=== PATIENT | female | born 1970 | race Caucasian/White ===

== ENCOUNTER → 2017-03-28 | Outpatient (CLI) | payer OTHER ==
[~2017-03-28] MED LIST: CYAN10002 IM; DICL1GEL12 TOP; DULOXETINE PO; FLUV100T12 PO; HYDR100C PO; Iron PO; LEVO150T9 PO; LISI-461 PO; LYR50 PO; Levothyroxine PO; ONDA-63 PO; PANT40TA2 PO; PREG200C PO; SNQ/50 PO; TOPI100T34 PO; VTMD PO; metronidazole PO
[2017-03-28 12:20] LABS: BASO % 1.6 %; BASO ABS # 0.08 K/uL (0-0.2); COMPLETE YES; EOS % 0.8 %; HEMATOCRIT 35.1 % (37-47); IG% 0.2 %; LYMPH % 38.4 %; LYMPH ABS # 1.91 K/uL (1.2-3.4); MEAN CORPUSCULAR HEMOGLOBIN 22.9 pg (25-34); MEAN CORPUSCULAR HGB CONC 30.5 g/dl (32-36); MEAN PLATELET VOLUME 8.3 fL (7.4-10.4); MONO % 7.2 %; NEUT % 51.8 %; PLATELET COUNT 355 K/uL (130-400); RED BLOOD COUNT 4.68 M/uL (4.2-5.4); WHITE BLOOD COUNT 4.97 K/uL (4.8-10.8)
[2017-03-28 13:12] LABS: ESTIMATED AVERAGE GLUCOSE 134 mg/dl; HA1C FLAG Normal (Normal)
[2017-03-28 13:31] LABS: ALT/SGPT 29 U/L (12-78); AST/SGOT 16 U/L (15-37); BLOOD UREA NITROGEN 11 mg/dl (7-18); BUN/CREATININE RATIO 15.8 (10-20); CARBON DIOXIDE 31 mmol/L (21-32); CHLORIDE 106 mmol/L (98-107); CHOLESTEROL 159 mg/dl (0-200); CREATININE 0.71 mg/dl (0.60-1.20); GLUCOSE 93 mg/dl (70-99); POTASSIUM 4.1 mmol/L (3.5-5.1); SODIUM 143 mmol/L (136-145); TRIGLYCERIDES 71 mg/dl (0-150); VERY LOW DENSITY LIPOPROT CALC 14 mg/dl
[2017-03-28 13:38] LABS: CALCIUM 8.3 mg/dl (8.5-10.1)
[2017-03-28 13:41] LABS: ALB/GLOB RATIO 0.8 (0.9-2); ALKALINE PHOSPHATASE 103 U/L (45-117); FERRITIN 3.9 ng/ml (8.0-388.0); HDL CHOLESTEROL 80 mg/dl; LDL CHOLESTEROL CALCULATED 65 mg/dl
== END | disposition home or self-care (01) ==
LOC: C.LABPVFM 09:56
PROVIDERS: ATTEND Nurse Practitioner Family
DX: E03.9 Hypothyroidism, unspecified (principal); D50.9 Iron deficiency anemia, unspecified; E53.8 Deficiency of other specified B group vitamins; E55.9 Vitamin D deficiency, unspecified; I10 Essential (primary) hypertension; R73.09 Other abnormal glucose

== ENCOUNTER → 2017-05-09 | Outpatient (CLI) | payer OTHER ==
[~2017-05-09] MED LIST changes: -FLUV100T12 PO; -HYDR100C PO; -LEVO150T9 PO; -LISI-461 PO; -PANT40TA2 PO; -PREG200C PO; +PRT/40 PO; -SNQ/50 PO
[2017-05-09 12:48] LABS: BASO % 1.7 %; BASO ABS # 0.09 K/uL (0-0.2); COMPLETE YES; EOS % 0.7 %; HEMATOCRIT 38.3 % (37-47); IG% 0.4 %; LYMPH % 37.4 %; MEAN CELL VOLUME 75.1 fL (80-100); MEAN CORPUSCULAR HEMOGLOBIN 23.1 pg (25-34); MEAN CORPUSCULAR HGB CONC 30.8 g/dl (32-36); MEAN PLATELET VOLUME 8.7 fL (7.4-10.4); MONO % 8.6 %; NEUT % 51.2 %; PLATELET COUNT 379 K/uL (130-400); WHITE BLOOD COUNT 5.35 K/uL (4.8-10.8)
== END | disposition home or self-care (01) ==
LOC: C.LABPVFM 09:52
PROVIDERS: ATTEND Nurse Practitioner
DX: D64.9 Anemia, unspecified (principal)

== ENCOUNTER 2017-08-17 14:49 | Emergency (ER) | payer OTHER ==
[~2017-08-17] VITALS: Ht 157.5 cm; Wt 93.0 kg
[2017-08-17 15:04] VITALS: TEMP 36.5; O2SAT 95; Ht 157.5 cm; Wt 93.0 kg
[2017-08-17] MEDS ORDERED: SODIUM CHLORIDE 0.9% 1000ML 2,000 ML IV STA (15:08)
[2017-08-17] MEDS ORDERED: ONDANSETRON INJ 2 MG/ML 2 ML VIAL IV STA (15:08)
--- NOTE | 2017-08-17 15:16 | EMERGENCY ROOM VISIT NOTE ---
History Report prepared by [place]: Yuval Stephens Under the Supervision of: Dr. Jay Lechuga M.D. First contact with patient: 15:01 Chief Complaint: SYNCOPE (NEAR SYNCOPE) History of Present Illness The patient is a 47 year old female who presents to the Emergency Room with complaints of a near syncopal episode that occurred about an hour and a half ago. Per the patient's daughter, earlier this afternoon they were getting ice cream. The patient was at her baseline as they sat in the [place]. A couple minutes later, the patient began to shake and was having difficulty responding to her family. Her daughter also says that her eyes were rolling upwards and she would fall forward intermittently. The patient does not remember this happening. After she mildly improved, she was able to eat some of her ice cream and notes that she felt somewhat better. She denies any chest pain, shortness of breath, hematochezia, or abnormal urinary symptoms. She has been having diarrhea for the past couple of days as well as a dry mouth. She denies any abnormal food exposure. Source of History: patient Onset: an hour and a half ago Position: other (Global) Symptom Intensity: Near-syncope Quality: other (Near-syncope) Timing: resolved Associated Symptoms: + diarrhea, No chest pain, No SOB, No hematochezia, No urinary symptoms Review of Systems See HPI for pertinent positives & negatives. A total of 10 systems reviewed and were otherwise negative. 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 (11) Lumbago (12) Lumbar Disc Displacement (13) Lumbosacral Neuritis Nos (14) Migraine W/O Aura W/O Intract Mgrn W/O Status Migrainosus (15) Obesity, Nos (16) Polycystic Ovaries Surgical Problems: (1) Bariatric Surgery Status Family History Diabetes mellitus Social History Smoking Status: Former Smoker Smokeless Tobacco Use: No Drug Use: none Marital Status: Housing Status: lives with family Occupation Status: employed Current/Historical Medications Scheduled Doxepin Hcl (Sinequan), 50 MG PO HS Fluvoxamine Maleate (Luvox), 100 MG PO QAM Fluvoxamine Maleate (Luvox), 200 MG PO HS Levothyroxine Sodium (Levothyroxine Sodium), 150 MCG PO QAM Lisinopril (Lisinopril), 10 MG PO QAM Pregabalin (Lyrica), 200 MG PO BID Scheduled PRN Hydroxyzine Pamoate (Vistaril), 100 MG PO QID PRN for Anxiety Allergies Coded Allergies: Penicillins (Verified Allergy, Intermediate, HIVES/SEIZURES, 02/03/15) Sulfa Drugs (Verified Allergy, Intermediate, HIVES/SEIZURES, 02/03/15) Latex (Unverified Allergy, Mild, rash, 02/03/15) Physical Exam Vital Signs Date Time Temp Pulse Resp B/P (MAP) Pulse Ox O2 Delivery O2 Flow Rate FiO2 08/17/17 17:45 82 18 130/99 96 Room Air 08/17/17 17:00 86 18 147/89 98 Room Air 08/17/17 16:09 91 18 134/85 95 Room Air 08/17/17 15:35 91 144/99 100 140/114 96 152/96 08/17/17 15:09 99 08/17/17 15:04 36.5 105 18 149/89 95 Room Air 08/17/17 15:04 95 Room Air Physical Exam GENERAL: Patient is in no acute distress. HEENT: No acute trauma, normocephalic atraumatic, mucous membranes dry, no nasal congestion, no scleral icterus. NECK: No stridor, no adenopathy, no meningismus, trachea is midline. LUNGS: Clear to auscultation bilaterally, no wheeze, no rhonchi, breath sounds equal. HEART: Without murmurs gallops or rubs, regular rate and rhythm. ABDOMEN: Soft, nontender, bowel sounds positive, no hernias, no peritonitis. EXTREMITIES: No cyanosis or edema, full range of motion of all the joints without pain or difficulty, no signs for acute trauma. NEUROLOGIC: Oriented x 3, no acute motor or sensory deficits, no focal weakness. SKIN: No rash, no jaundice, no diaphoresis. Medical Decision & Procedures ER Provider Diagnostic Interpretation: Radiology results as stated below per my review and radiologist interpretation: SINGLE VIEW CHEST CLINICAL HISTORY: Weakness. Change in mental status. FINDINGS: An AP, portable, semierect chest radiograph is compared to study dated 06/05/2013. The examination is degraded by portable technique and patient rotation. The cardiomediastinal silhouette is unremarkable. The lungs and pleural spaces are clear. No pneumothorax is seen. The bony thorax is grossly intact. IMPRESSION: No active disease in the chest. Electronically signed by: Jay Díaz M.D. 08/17/2017 3:43 PM Dictated Date/Time: 08/17/2017 3:42 PM Laboratory Results 08/17/17 15:10 Red Blood Count 5.13, Mean Corpuscular Volume 72.7, Mean Corpuscular Hemoglobin 23.2, Mean Corpuscular Hemoglobin Concent 31.9, Mean Platelet Volume 8.2, Neutrophils (%) (Auto) 68.6, Lymphocytes (%) (Auto) 22.2, Monocytes (%) (Auto) 7.6, Eosinophils (%) (Auto) 0.6, Basophils (%) (Auto) 0.8, Neutrophils # (Auto) 4.22, Lymphocytes # (Auto) 1.37, Monocytes # (Auto) 0.47, Eosinophils # (Auto) 0.04, Basophils # (Auto) 0.05 08/17/17 15:10 Test 08/17/17 15:10 08/17/17 16:20 08/17/17 17:32 White Blood Count 6.16 K/uL (4.8-10.8) Red Blood Count 5.13 M/uL (4.2-5.4) Hemoglobin 11.9 g/dL (12.0-16.0) Hematocrit 37.3 % (37-47) Mean Corpuscular Volume 72.7 fL (80-100) Mean Corpuscular Hemoglobin 23.2 pg (25-34) Mean Corpuscular Hemoglobin Concent 31.9 g/dl (32-36) Platelet Count 344 K/uL (130-400) Mean Platelet Volume 8.2 fL (7.4-10.4) Neutrophils (%) (Auto) 68.6 % Lymphocytes (%) (Auto) 22.2 % Monocytes (%) (Auto) 7.6 % Eosinophils (%) (Auto) 0.6 % Basophils (%) (Auto) 0.8 % Neutrophils # (Auto) 4.22 K/uL (1.4-6.5) Lymphocytes # (Auto) 1.37 K/uL (1.2-3.4) Monocytes # (Auto) 0.47 K/uL (0.11-0.59) Eosinophils # (Auto) 0.04 K/uL (0-0.5) Basophils # (Auto) 0.05 K/uL (0-0.2) RDW Standard Deviation 42.9 fL (36.4-46.3) RDW Coefficient of Variation 16.2 % (11.5-14.5) Immature Granulocyte % (Auto) 0.2 % Immature Granulocyte # (Auto) 0.01 K/uL (0.00-0.02) Anion Gap 7.0 mmol/L (3-11) Est Creatinine Clear Calc Drug Dose 89.9 ml/min Estimated GFR () 98.0 Estimated GFR (Non- 84.6 BUN/Creatinine Ratio 19.1 (10-20) Calcium Level 8.6 mg/dl (8.5-10.1) Magnesium Level 2.1 mg/dl (1.8-2.4) Total Bilirubin 0.3 mg/dl (0.2-1) Aspartate Amino Transf (AST/SGOT) 22 U/L (15-37) Alanine Aminotransferase (ALT/SGPT) 42 U/L (12-78) Alkaline Phosphatase 121 U/L (45-117) Total Protein 7.9 gm/dl (6.4-8.2) Albumin 3.8 gm/dl (3.4-5.0) Globulin 4.1 gm/dl (2.5-4.0) Albumin/Globulin Ratio 0.9 (0.9-2) Thyroid Stimulating Hormone (TSH) 10.100 uIu/ml (0.300-4.500) Free Thyroxine 0.88 ng/dl (0.80-1.60) Urine Color YELLOW Urine Appearance CLEAR (CLEAR) Urine pH 5.0 (4.5-7.5) Urine Specific Crowley 1.014 (1.000-1.030) Urine Protein NEG (NEG) Urine Glucose (UA) NEG (NEG) Urine Ketones NEG (NEG) Urine Occult Blood NEG (NEG) Urine Nitrite NEG (NEG) Urine Bilirubin NEG (NEG) Urine Urobilinogen NEG (NEG) Urine Leukocyte Esterase NEG (NEG) Bedside Troponin I < 0.030 ng/ml (0-0.045) Laboratory results reviewed by me. Medications Administered Medications (Trade) Dose Ordered Sig/Darby Route Start Time Stop Time Status Last Admin Dose Admin Sodium Chloride 2,000 ml @ 999 mls/hr Q2H1M STAT IV 08/17/17 15:08 08/17/17 17:08 DC 08/17/17 15:29 999 MLS/HR Ondansetron HCl (Zofran Inj) 4 mg NOW STAT IV 08/17/17 15:08 08/17/17 15:10 DC 08/17/17 15:29 4 MG ECG Indication: syncope (near) Rate (beats per minute): 98 Rhythm: normal sinus Findings: nonspecific-ST abn, ST depression (Lateral), other (LVH present) Comparison ECG Date: 05 Jun 2013 Change: ST and T wave abnormalities are new compared to prior. ED Course 1501: The patient was evaluated in room B3. A complete history and physical exam was performed. 1508: Ordered Zofran Inj 4 mg IV, Sodium Chloride 2000 ml @ 999 mls/hr IV 1640: The patient's orthostatic vital signs were negative. 1659: Her POC troponin was 0.00. 1722: She is doing well. Her second POC troponin was 0.01. 1956: Reevaluated the patient. Discussed results and discharge instructions: She verbalized understanding and agreement. The patient is ready for discharge. Medical Decision Differential diagnosis includes but is not limited to dehydration, electrolyte imbalance, anemia, UTI, dysrhythmia, and [place]. There is no leukocytosis or concerning anemia. No significant electrolyte abnormality, kidney failure or hepatitis. Thyroid testing suggests the use of thyroid medications. Urinalysis does not show infection. Orthostatic vital signs were negative. EKG shows a sinus rhythm with some ST changes consistent most likely with LVH. Cardiac enzyme testing 2 is not suggestive of acute cardiac injury. Chest film does not show pneumonia or CHF. Patient presents with a near syncopal event. She has not felt well for a few days and has had diarrhea and a decreased appetite. She feels thirsty. I suspect that she was dehydrated and that this led to the near syncopal event. She denies any chest pain or dyspnea with the episode. The patient was given IV Zofran and IV saline, she feels improved and is anxious for discharge. She can return if worsening. Medication Reconcilliation Current Medication List: was personally reviewed by me Blood Pressure Screening Patient's blood pressure: Elevated blood pressure Blood pressure disposition: Elevated BP felt to be situational Impression Primary Impression: Near syncope Additional Impressions: Dehydration Diarrhea Scribe Attestation The scribe's documentation has been prepared under my direction and personally reviewed by me in its entirety. I confirm that the note above accurately reflects all work, treatment, procedures, and medical decision making performed by me. Departure Information Dispostion Home / Self-Care Referrals Chanelle Gerard C.R.N.P (PCP) Forms HOME CARE DOCUMENTATION FORM, IMPORTANT VISIT INFORMATION Patient Instructions My [facility] Additional Instructions bland diet--crackers, soup, toast, gatorade rest return for worsening symptoms follow with [facility] saturday for a recheck lab testing today was all ok Problem Qualifiers Additional Impressions: Diarrhea Diarrhea type: unspecified type Qualified Codes: R19.7 - Diarrhea, unspecified
[2017-08-17 15:32] LABS: BASO % 0.8 %; BASO ABS # 0.05 K/uL (0-0.2); COMPLETE YES; EOS % 0.6 %; HEMATOCRIT 37.3 % (37-47); IG% 0.2 %; LYMPH % 22.2 %; LYMPH ABS # 1.37 K/uL (1.2-3.4); MEAN CELL VOLUME 72.7 fL (80-100); MEAN CORPUSCULAR HEMOGLOBIN 23.2 pg (25-34); MEAN CORPUSCULAR HGB CONC 31.9 g/dl (32-36); MEAN PLATELET VOLUME 8.2 fL (7.4-10.4); MONO % 7.6 %; NEUT % 68.6 %; PLATELET COUNT 344 K/uL (130-400); RED BLOOD COUNT 5.13 M/uL (4.2-5.4); WHITE BLOOD COUNT 6.16 K/uL (4.8-10.8)
--- NOTE | 2017-08-17 15:44 | DIAGNOSTIC IMAGING REPORT ---
SINGLE VIEW CHEST CLINICAL HISTORY: Weakness. Change in mental status. FINDINGS: An AP, portable, semierect chest radiograph is compared to study dated 06/05/2013. The examination is degraded by portable technique and patient rotation. The cardiomediastinal silhouette is unremarkable. The lungs and pleural spaces are clear. No pneumothorax is seen. The bony thorax is grossly intact. IMPRESSION: No active disease in the chest. Electronically signed by: Jay Díaz M.D. 08/17/2017 3:43 PM Dictated Date/Time: 08/17/2017 3:42 PM
[2017-08-17 15:50] LABS: BUN/CREATININE RATIO 19.1 (10-20); CALCIUM 8.6 mg/dl (8.5-10.1); CREATININE 0.83 mg/dl (0.60-1.20); MAGNESIUM 2.1 mg/dl (1.8-2.4); POTASSIUM 3.3 mmol/L (3.5-5.1)
[2017-08-17 16:01] LABS: ALB/GLOB RATIO 0.9 (0.9-2); THYROID STIMULATING HORMONE 10.1 uIu/ml (0.300-4.500)
[2017-08-17] MEDS ORDERED: LEVO150T9 PO (16:12)
[2017-08-17] MEDS ORDERED: LISI-461 PO (16:12)
[2017-08-17] MEDS ORDERED: FLUV100T12 PO ×2 (16:12)
[2017-08-17] MEDS ORDERED: PREG200C PO (16:12)
[2017-08-17] MEDS ORDERED: HYDR100C PO (16:12)
[2017-08-17] MEDS ORDERED: SNQ/50 PO (16:12)
[2017-08-17 16:51] LABS: URINE APPEARANCE CLEAR (CLEAR); URINE BILIRUBIN NEG (NEG); URINE COLOR YELLOW; URINE NITRITE NEG (NEG); URINE SPECIFIC GRAVITY 1.014 (1.000-1.030); UROBILINOGEN NEG (NEG); ZZUR CULT IF INDIC CLEAN CATCH NO
[2017-08-17 17:22] LABS: MANUAL MICROSCOPIC REQUIRED? NO; REVIEW REQ? NO
[2017-08-17 17:45] VITALS: BP 130/99; PULSE 82; O2SAT 96
== END 2017-08-17 18:01 | disposition home or self-care (01) ==
LOC: EDBD 14:49 → C.EDB 14:50
DX: R55 Syncope and collapse (principal); E86.0 Dehydration; R19.7 Diarrhea, unspecified; F41.9 Anxiety disorder, unspecified; E03.9 Hypothyroidism, unspecified; I10 Essential (primary) hypertension; K21.9 Gastro-esophageal reflux disease without esophagitis; J45.909 Unspecified asthma, uncomplicated; Z79.899 Other long term (current) drug therapy; Z87.898 Personal history of other specified conditions; Z87.891 Personal history of nicotine dependence; Z83.3 Family history of diabetes mellitus

== ENCOUNTER 2018-02-08 18:30 | Inpatient (IN) | payer OTHER ==
[~2018-02-08] VITALS: Ht 157.5 cm; Wt 95.0 kg
[~2018-02-08 18:30] MED LIST changes: -CYAN10002 IM; -DICL1GEL12 TOP; -DULOXETINE PO; +FLUV100T12 PO; +HYDR100C PO; -Iron PO; +LEVO150T9 PO; +LISI-461 PO; -LYR50 PO; -Levothyroxine PO; -ONDA-63 PO; +PREG200C PO; -PRT/40 PO; +SNQ/50 PO; -TOPI100T34 PO; -VTMD PO; -metronidazole PO
[2018-02-08 19:05] LABS: BASO % 0.3 %; BASO ABS # 0.02 K/uL (0-0.2); EOS % 0.8 %; EOS ABS # 0.06 K/uL (0-0.5); HEMATOCRIT 34.2 % (37-47); HEMOGLOBIN 10.5 g/dL (12.0-16.0); IG# 0.05 K/uL (0.00-0.02); LYMPH % 13.2 %; LYMPH ABS # 0.94 K/uL (1.2-3.4); MEAN CELL VOLUME 68.1 fL (80-100); MEAN CORPUSCULAR HEMOGLOBIN 20.9 pg (25-34); MEAN CORPUSCULAR HGB CONC 30.7 g/dl (32-36); MEAN PLATELET VOLUME 8.1 fL (7.4-10.4); MONO % 4.6 %; MONO ABS # 0.33 K/uL (0.11-0.59); NEUT % 80.4 %; NEUT ABS # 5.73 K/uL (1.4-6.5); PLATELET COUNT 369 K/uL (130-400); RED CELL DISTRIBUTION WIDTH CV 19.4 % (11.5-14.5); RED CELL DISTRIBUTION WIDTH SD 47.7 fL (36.4-46.3); WHITE BLOOD COUNT 7.13 K/uL (4.8-10.8)
[2018-02-08] MEDS ORDERED: DOXE100C4 PO (19:12)
[2018-02-08] MEDS ORDERED: DIPH25CA65 PO (19:12)
[2018-02-08 19:20] LABS: PTT PATIENT 30.1 SECONDS (21.0-31.0)
[2018-02-08 19:27] LABS: ALBUMIN 2.5 gm/dl (3.4-5.0); ALT/SGPT 26 U/L (12-78); AST/SGOT 11 U/L (15-37); BLOOD UREA NITROGEN 15 mg/dl (7-18); CALCIUM 8.6 mg/dl (8.5-10.1); CARBON DIOXIDE 23 mmol/L (21-32); CREATININE 0.92 mg/dl (0.60-1.20); GLUCOSE 173 mg/dl (70-99); POTASSIUM 2.8 mmol/L (3.5-5.1); SODIUM 139 mmol/L (136-145)
[2018-02-08] MEDS ORDERED: SODIUM CHLORIDE 0.9% 1000ML 1,000 ML IV STA (19:28)
[2018-02-08] MEDS ORDERED: OPTIRAY 320 IV PRN (19:30)
[2018-02-08 19:32] LABS: ALKALINE PHOSPHATASE 158 U/L (45-117); TOTAL PROTEIN 7.1 gm/dl (6.4-8.2)
--- NOTE | 2018-02-08 19:58 | DIAGNOSTIC IMAGING REPORT ---
R RIBS UNILATERAL WITH PA CHEST CLINICAL HISTORY: Right-sided rib pain. COMPARISON STUDY: Chest 08/17/2017. FINDINGS: There are low lung volumes. Linear densities the left lung base. Possible trace left pleural effusion. The right lung is clear. The heart is normal in size. No acute rib fractures. No pneumothorax. IMPRESSION: 1. No acute rib fractures. No pneumothorax. 2. Trace left pleural effusion. 3. Left basilar linear densities. This favors subsegmental atelectasis. However, a pneumonia could also have a similar appearance. One to 2 month chest x-ray follow up is recommended to ensure resolution. Electronically signed by: Frankie Banda M.D. 02/08/2018 7:57 PM Dictated Date/Time: 02/08/2018 7:55 PM
[2018-02-08] MEDS ORDERED: POTASSIUM CHLORIDE 10 MEQ TABCR PO STA (20:22)
[2018-02-08] MEDS ORDERED: ONDANSETRON INJ 2 MG/ML 2 ML VIAL IV STA (20:32)
--- NOTE | 2018-02-08 21:12 | DIAGNOSTIC IMAGING REPORT ---
ABDOMEN AND PELVIS CT WITH IV CONTRAST CT DOSE: 1268.68 mGy.cm HISTORY: Generalized abdominal pain. TECHNIQUE: Multiaxial CT images of the abdomen and pelvis were performed following the use of intravenous contrast. A dose lowering technique was utilized adhering to the principles of ALARA. COMPARISON STUDY: None. FINDINGS: Patchy bibasilar densities. Trace bilateral pleural effusions. No pneumoperitoneum. No pneumatosis. No acute fractures within the visualized osseous structures. Prior gastric bypass. Moderate well-formed stool seen throughout the colon. No bowel wall thickening or obstruction. Normal appendix. A 2 cm cyst within the left ovary. There is also a nabothian cyst at the cervix. Prior gastric bypass. Normal bladder. No retroperitoneal lymphadenopathy. The kidneys, spleen, adrenal glands, and pancreas are unremarkable. The gallbladder is distended and demonstrates mild gallbladder wall thickening. There is surrounding pericholecystic inflammatory change. There is also a few ill-defined pockets of fluid abutting the undersurface of the left hepatic lobe which could be partially subcapsular. These are adjacent to the gallbladder. The largest fluid collection measures 3.6 cm. Small peripheral enhancing low-density collection which appears to be adjacent to or within the wall of the distal aspect of the excluded portion of the stomach. This is best seen on image 124. IMPRESSION: 1. The gallbladder is distended and demonstrates mild gallbladder wall thickening. There is surrounding pericholecystic inflammatory change. Therefore, this is highly suspicious for acute cholecystitis. 2. There are few adjacent small ill-defined fluid collections along the undersurface of the left hepatic lobe adjacent to the abnormal gallbladder. These are nonspecific and could be related to the adjacent inflammatory change of the gallbladder. Therefore, these could represent small developing abscesses or bilomas. There is also a peripheral enhancing low-density collection which appears to be adjacent to or within the wall the distal aspect of the excluded portion of the stomach. This could represent an additional developing abscess. However, a separate gastric mass cannot be excluded. Follow-up CT or endoscopy is recommended to ensure resolution. 3. Patchy bibasilar densities and trace bilateral pleural effusions. This may represent atelectasis or pneumonia. 4. Prior gastric bypass. Electronically signed by: Frankie Banda M.D. 02/08/2018 9:10 PM Dictated Date/Time: 02/08/2018 9:00 PM
--- NOTE | 2018-02-08 22:14 | EMERGENCY ROOM VISIT NOTE ---
History Report prepared by Scribe: Dorothy Jimenez Under the Supervision of: Dr. Castillo Velázquez D.O. First contact with patient: 18:36 Chief Complaint: FALL Stated Complaint: FELL TWICE, HIT HEAD, NAUSEA, RT SIDE PAIN, POLANCO History of Present Illness The patient is a 48 year old female who presents to the Emergency Room with complaints of worsening back pain for the past 3 days. She admits to a history of spinal stenosis and rates her discomfort as an 8/10 in severity. She reports she has also fallen twice in the past 3 days, stating "my legs get weak and fall out from under me". During the 2nd fall 3 days ago, she states she hit her head on the floor. She complains of a history of back pain and spinal stenosis and states she has undergone 1 back surgery previously and is supposed to undergo another one in the future. The patient reports she is only able to walk bent over because of her back pain. She denies any saddle anesthesia or changes in her bowel or bladder habits. She complains of tenderness over her right, lower chest wall. She also complains of nausea and abdominal pain. Pt denies headache, change in vision, fevers, chest pain, shortness of breath, vomiting, diarrhea, pain with urination, and melena. Source of History: patient Onset: 3 days [employer] Position: back Symptom Intensity: 8/10 Timing: worsening Associated Symptoms: + nausea, + abdominal pain, + weakness (in bilateral legs), No headache, No chest pain, No SOB, No vomiting, No melena, No diarrhea, No urinary symptoms Review of Systems See HPI for pertinent positives & negatives. A total of 10 systems reviewed and were otherwise negative. 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 (12) Lumbago (13) Lumbar Disc Displacement (14) Lumbosacral Neuritis Nos (15) Migraine W/O Aura W/O Intract Mgrn W/O Status Migrainosus (16) Obesity, Nos (17) Polycystic Ovaries Surgical Problems: (1) Bariatric Surgery Status Family History Diabetes mellitus Social History Smoking Status: Never Smoker Drug Use: none Marital Status: Housing Status: lives with family Occupation Status: employed Current/Historical Medications Scheduled Diphenhydramine Hcl (Benadryl Allergy), 25 MG PO BID Doxepin Hcl (Doxepin), 100 MG PO HS Fluvoxamine Maleate (Luvox), 100 MG PO QAM Fluvoxamine Maleate (Luvox), 200 MG PO HS Levothyroxine Sodium (Levothyroxine Sodium), 150 MCG PO QAM Pregabalin (Lyrica), 200 MG PO TID Scheduled PRN Hydroxyzine Pamoate (Vistaril), 100 MG PO QID PRN for Anxiety Allergies Coded Allergies: Penicillins (Verified Allergy, Intermediate, HIVES/SEIZURES, 02/03/15) Sulfa Drugs (Verified Allergy, Intermediate, HIVES/SEIZURES, 02/03/15) Latex (Verified Allergy, Mild, rash, 02/08/18) Physical Exam Vital Signs Date Time Temp Pulse Resp B/P (MAP) Pulse Ox O2 Delivery O2 Flow Rate FiO2 02/08/18 21:30 94 20 152/105 95 Room Air 02/08/18 21:20 91 20 161/97 95 Room Air 02/08/18 19:45 96 20 142/71 95 Room Air 02/08/18 18:32 36.7 109 20 123/81 97 Room Air Physical Exam GENERAL: Sitting up in bed, alert, disheveled appearing, well nourished, no distress, non-toxic EYE EXAM: normal conjunctiva. OROPHARYNX: no exudate, no erythema, lips, buccal mucosa, and tongue normal and mucous membranes are moist NECK: supple, no nuchal rigidity, no adenopathy, non-tender LUNGS: Clear to auscultation. Normal chest wall mechanics HEART: no murmurs, S1 normal and S2 normal CHEST: Acute reproducible tenderness over right lower chest wall. ABDOMEN: abdomen soft, severe diffuse abdominal pain on the right side/RUQ, normo-active bowel sounds, no masses, no rebound or guarding. BACK: Back is symmetrical on inspection and there is no deformity, no midline tenderness, no CVA tenderness. SKIN: no rashes and no bruising UPPER EXTREMITIES: upper extremities are grossly normal. LOWER EXTREMITIES: No pitting edema. Flexion and extension of the hip, knee, ankle and EHL is 5/5 bilaterally, patient is able to ambulate hunched over without difficulty. Patellar and Achilles reflexes are 1/4 bilaterally. NEURO EXAM: Normal sensorium, cranial nerves II-XII grossly intact, normal speech, no gross weakness of arms. Medical Decision & Procedures ER Provider Diagnostic Interpretation: Radiology results as stated below per my review and the radiologist's interpretation: R RIBS UNILATERAL WITH PA CHEST CLINICAL HISTORY: Right-sided rib pain. COMPARISON STUDY: Chest 08/17/2017. FINDINGS: There are low lung volumes. Linear densities the left lung base. Possible trace left pleural effusion. The right lung is clear. The heart is normal in size. No acute rib fractures. No pneumothorax. IMPRESSION: 1. No acute rib fractures. No pneumothorax. 2. Trace left pleural effusion. 3. Left basilar linear densities. This favors subsegmental atelectasis. However, a pneumonia could also have a similar appearance. One to 2 month chest x-ray follow up is recommended to ensure resolution. Electronically signed by: Frankie Banda M.D. 02/08/2018 7:57 PM ABDOMEN AND PELVIS CT WITH IV CONTRAST CT DOSE: 1268.68 mGy.cm HISTORY: Generalized abdominal pain. TECHNIQUE: Multiaxial CT images of the abdomen and pelvis were performed following the use of intravenous contrast. A dose lowering technique was utilized adhering to the principles of ALARA. COMPARISON STUDY: None. FINDINGS: Patchy bibasilar densities. Trace bilateral pleural effusions. No pneumoperitoneum. No pneumatosis. No acute fractures within the visualized osseous structures. Prior gastric bypass. Moderate well-formed stool seen throughout the colon. No bowel wall thickening or obstruction. Normal appendix. A 2 cm cyst within the left ovary. There is also a nabothian cyst at the cervix. Prior gastric bypass. Normal bladder. No retroperitoneal lymphadenopathy. The kidneys, spleen, adrenal glands, and pancreas are unremarkable. The gallbladder is distended and demonstrates mild gallbladder wall thickening. There is surrounding pericholecystic inflammatory change. There is also a few ill-defined pockets of fluid abutting the undersurface of the left hepatic lobe which could be partially subcapsular. These are adjacent to the gallbladder. The largest fluid collection measures 3.6 cm. Small peripheral enhancing low-density collection which appears to be adjacent to or within the wall of the distal aspect of the excluded portion of the stomach. This is best seen on image 124. IMPRESSION: 1. The gallbladder is distended and demonstrates mild gallbladder wall thickening. There is surrounding pericholecystic inflammatory change. Therefore, this is highly suspicious for acute cholecystitis. 2. There are few adjacent small ill-defined fluid collections along the undersurface of the left hepatic lobe adjacent to the abnormal gallbladder. These are nonspecific and could be related to the adjacent inflammatory change of the gallbladder. Therefore, these could represent small developing abscesses or bilomas. There is also a peripheral enhancing low-density collection which appears to be adjacent to or within the wall the distal aspect of the excluded portion of the stomach. This could represent an additional developing abscess. However, a separate gastric mass cannot be excluded. Follow-up CT or endoscopy is recommended to ensure resolution. 3. Patchy bibasilar densities and trace bilateral pleural effusions. This may represent atelectasis or pneumonia. 4. Prior gastric bypass. Electronically signed by: Frankie Banda M.D. 02/08/2018 9:10 PM Laboratory Results 02/08/18 18:55 Red Blood Count 5.02, Mean Corpuscular Volume 68.1, Mean Corpuscular Hemoglobin 20.9, Mean Corpuscular Hemoglobin Concent 30.7, Mean Platelet Volume 8.1, Neutrophils (%) (Auto) 80.4, Lymphocytes (%) (Auto) 13.2, Monocytes (%) (Auto) 4.6, Eosinophils (%) (Auto) 0.8, Basophils (%) (Auto) 0.3, Neutrophils # (Auto) 5.73, Lymphocytes # (Auto) 0.94, Monocytes # (Auto) 0.33, Eosinophils # (Auto) 0.06, Basophils # (Auto) 0.02 02/08/18 18:55 Test 02/08/18 18:55 02/08/18 20:40 White Blood Count 7.13 K/uL (4.8-10.8) Red Blood Count 5.02 M/uL (4.2-5.4) Hemoglobin 10.5 g/dL (12.0-16.0) Hematocrit 34.2 % (37-47) Mean Corpuscular Volume 68.1 fL (80-100) Mean Corpuscular Hemoglobin 20.9 pg (25-34) Mean Corpuscular Hemoglobin Concent 30.7 g/dl (32-36) Platelet Count 369 K/uL (130-400) Mean Platelet Volume 8.1 fL (7.4-10.4) Neutrophils (%) (Auto) 80.4 % Lymphocytes (%) (Auto) 13.2 % Monocytes (%) (Auto) 4.6 % Eosinophils (%) (Auto) 0.8 % Basophils (%) (Auto) 0.3 % Neutrophils # (Auto) 5.73 K/uL (1.4-6.5) Lymphocytes # (Auto) 0.94 K/uL (1.2-3.4) Monocytes # (Auto) 0.33 K/uL (0.11-0.59) Eosinophils # (Auto) 0.06 K/uL (0-0.5) Basophils # (Auto) 0.02 K/uL (0-0.2) RDW Standard Deviation 47.7 fL (36.4-46.3) RDW Coefficient of Variation 19.4 % (11.5-14.5) Immature Granulocyte % (Auto) 0.7 % Immature Granulocyte # (Auto) 0.05 K/uL (0.00-0.02) Microcytosis PRESENT Prothrombin Time 10.0 SECONDS (9.0-12.0) Prothromb Time International Ratio 1.0 (0.9-1.1) Activated Partial Thromboplast Time 30.1 SECONDS (21.0-31.0) Partial Thromboplastin Ratio 1.2 Anion Gap 11.0 mmol/L (3-11) Est Creatinine Clear Calc Drug Dose 80.8 ml/min Estimated GFR () 85.9 Estimated GFR (Non- 74.2 BUN/Creatinine Ratio 15.7 (10-20) Calcium Level 8.6 mg/dl (8.5-10.1) Total Bilirubin 0.3 mg/dl (0.2-1) Direct Bilirubin 0.2 mg/dl (0-0.2) Aspartate Amino Transf (AST/SGOT) 11 U/L (15-37) Alanine Aminotransferase (ALT/SGPT) 26 U/L (12-78) Alkaline Phosphatase 158 U/L (45-117) Troponin I < 0.015 ng/ml (0-0.045) Total Protein 7.1 gm/dl (6.4-8.2) Albumin 2.5 gm/dl (3.4-5.0) Urine Color YELLOW Urine Appearance CLEAR (CLEAR) Urine pH 5.5 (4.5-7.5) Urine Specific [place] 1.033 (1.000-1.030) Urine Protein NEG (NEG) Urine Glucose (UA) NEG (NEG) Urine Ketones NEG (NEG) Urine Occult Blood NEG (NEG) Urine Nitrite POS (NEG) Urine Bilirubin NEG (NEG) Urine Urobilinogen NEG (NEG) Urine Leukocyte Esterase MODERATE (NEG) Urine WBC (Auto) >30 /hpf (0-5) Urine RBC (Auto) 0-4 /hpf (0-4) Urine Hyaline Casts (Auto) 0 /lpf (0-5) Urine Epithelial Cells (Auto) >30 /lpf (0-5) Urine Bacteria (Auto) 2+ (NEG) Urine Yeast (Auto) BUDDING (NONE PRSENT) Laboratory results per my review. Medications Administered Medications (Trade) Dose Ordered Sig/Darby Route Start Time Stop Time Status Last Admin Dose Admin Sodium Chloride 1,000 ml @ 999 mls/hr Q1H1M STAT IV 02/08/18 19:28 02/08/18 20:28 DC 02/08/18 19:45 999 MLS/HR Potassium Chloride (Klor-Con M10) 40 meq NOW STAT PO 02/08/18 20:22 02/08/18 20:23 DC 02/08/18 20:54 40 MEQ Ondansetron HCl (Zofran Inj) 4 mg NOW STAT IV 02/08/18 20:32 02/08/18 20:33 DC 02/08/18 20:54 4 MG ED Course ED COURSE: Vital signs were reviewed and showed the patient is tachycardic. The patients medical record was reviewed The above diagnostic studies were performed and reviewed. ED treatments and interventions as stated above. 8: The patient was evaluated in room B8. A complete history and physical examination was performed. 1927: NSS 1000 ml @ 999 mls/hr IV. 2021: Potassium Chloride 40 meq PO, Zofran 4 mg IV. 2149: I discussed the patients case with Axel Haywood PA-C, [facility]. The patient will be further evaluated. 2154: Upon reevaluation, the patient is resting comfortably. I discussed my findings with the patient and she understands and agrees with the treatment plan. Based on the patients age, coexisting illnesses, exam and lab findings the decision to treat as an inpatient was made. The patient remained stable while under my care. The patient will be evaluated for further management. Medical Decision Differential diagnoses include major intracranial, cervical, spinal, thoracic, abdominal, pelvic and neurologic injury. Fracture, contusion, sprain, strain, laceration, abrasions included as well. Patient is a 48-year-old female who presents to ER for right-sided pain. She notes she fell 2 days ago and that is when the pain started. On exam she is tender in right upper quadrant. X-rays of the chest show no acute fractures. CBC was unremarkable. BMP with a potassium of 2.8. This was repleted. LFTs and bilirubin were normal. Troponin was negative. UA was contaminated and she had no urinary symptoms. CT did reveal acute cholecystitis. Discuss with general surgery patient was admitted for further workup. She initially was not given any pain meds as she was very lethargic. She was given Zofran, potassium and fluids. Medication Reconcilliation Current Medication List: was personally reviewed by me Blood Pressure Screening Patient's blood pressure: Elevated blood pressure Blood pressure disposition: Elevated BP felt to be situational Consults Time Called: 2114 Consulting Physician: Axel Haywood PA-C, [facility] Returned Call: 2149 I discussed the patients case with Axel Haywood PA-C, [facility]. The patient will be further evaluated. Impression Primary Impression: Acute cholecystitis Additional Impression: Hypokalemia Scribe Attestation The scribe's documentation has been prepared under my direction and personally reviewed by me in its entirety. I confirm that the note above accurately reflects all work, treatment, procedures, and medical decision making performed by me. Departure Information Dispostion Being Evaluated By Surgeon Referrals Chanelle Gerard, C.R.N.P (PCP) Patient Instructions My [facility] Problem Qualifiers
[2018-02-08] MEDS ORDERED: ONDANSETRON INJ 2 MG/ML 2 ML VIAL IV PRN (22:15)
--- NOTE | 2018-02-08 22:24 | Surgery Consultation ---
Consultation Date of Consultation: Feb 08, 2018. Attending Physician: Reason for Consultation: Acute cholecystitis History of Present Illness Patient is a 48F who presents to the ED this evening due to right sided abdominal pain wrapping up to her right shoulder. Reports she fell twice approximately 2 days ago. She came to the ED tonight because she thought she was having rib pain from her fall. She also reports feeling bloated after eating. The last thing she ate was a salad yesterday which caused her to have some pain. She does report episodes of RUQ pain in the past. She does report she regularly feels cold off and on but denies any chills, fever, recent illness. Reports she regularly feels nauseated but denies any vomiting. She has been urinating and moving her bowels without issue. She has taken Excedrin the past 3 days for her pain but denies regular use of blood thinning or anticoagulant medications. PSHx significant for gastric bypass at [place] approximately 12 years ago. Denies any other previous abdominal surgeries. WBC WNL. CT shows findings suspicious for acute cholecystitis. Past Medical/Surgical History Medical Problems: (1) Anemia Nos Status: Chronic (2) Anxiety State Nos Status: Chronic (3) Asthma, Unspecified Status: Chronic (4) Dehydration Status: Acute (5) Diarrhea Status: Acute (6) Esophageal Reflux Status: Chronic (7) Hypertension Nos Status: Chronic (8) Hypokalemia Status: Acute (9) Hypothyroidism Nos Status: Chronic (10) Lumb Disc Dis W Myelopat Status: Chronic (11) Lumb/Lumbosac Disc Degen Status: Chronic (12) Lumbago Status: Chronic (13) Lumbar Disc Displacement Status: Chronic (14) Lumbosacral Neuritis Nos Status: Chronic (15) Migraine W/O Aura W/O Intract Mgrn W/O Status Migrainosus Status: Chronic (16) Near syncope Status: Acute (17) Obesity, Nos Status: Chronic (18) Polycystic Ovaries Status: Chronic Surgical Problems: (1) Bariatric Surgery Status Status: Chronic Family History Diabetes mellitus Social History Smoking Status: Never Smoker Drug Use: none Marital Status: Housing Status: lives with family Occupation Status: employed Allergies Coded Allergies: Penicillins (Verified Allergy, Intermediate, HIVES/SEIZURES, 02/03/15) Sulfa Drugs (Verified Allergy, Intermediate, HIVES/SEIZURES, 02/03/15) Latex (Verified Allergy, Mild, rash, 02/08/18) Home Medications Scheduled Diphenhydramine Hcl (Benadryl Allergy), 25 MG PO BID Doxepin Hcl (Doxepin), 100 MG PO HS Fluvoxamine Maleate (Luvox), 100 MG PO QAM Fluvoxamine Maleate (Luvox), 200 MG PO HS Levothyroxine Sodium (Levothyroxine Sodium), 150 MCG PO QAM Pregabalin (Lyrica), 200 MG PO TID Scheduled PRN Hydroxyzine Pamoate (Vistaril), 100 MG PO QID PRN for Anxiety Current Inpatient Medications Current Inpatient Medications Medications (Trade) Dose Ordered Sig/Darby Route Start Time Stop Time Status Last Admin Dose Admin Ioversol (Optiray 320) 100 ml UD PRN IV 02/08/18 19:30 02/12/18 19:29 Sodium Chloride 1,000 ml @ 100 mls/hr Q10H IV 02/08/18 22:15 03/10/18 22:14 UNV Ondansetron HCl (Zofran Inj) 4 mg Q6H PRN IV 02/08/18 22:15 03/10/18 22:14 Acetaminophen 1000 mg/Empty Bag 100 ml @ 400 mls/hr Q8H IV 02/08/18 22:15 03/10/18 22:14 UNV Morphine Sulfate (MoRPHine SULFATE INJ) 2 mg Q3HWA PRN IV 02/08/18 22:15 02/22/18 22:14 Morphine Sulfate (MoRPHine SULFATE INJ) 4 mg Q3HWA PRN IV 02/08/18 22:15 02/22/18 22:14 Review of Systems Constitutional: + chills, No fever ENT: No sore throat Respiratory: No shortness of breath Cardiovascular: No chest pain Abdomen: + pain (RUQ, RLQ), + nausea, No vomiting, No diarrhea, No constipation Musculoskeletal: + joint pain (Shoulder pain) Genitourinary - Female: No dysuria Integumentary: No new/changing skin lesions, No color change Physical Exam Date Time Temp Pulse Resp B/P (MAP) Pulse Ox O2 Delivery O2 Flow Rate FiO2 02/08/18 21:30 94 20 152/105 95 Room Air 02/08/18 21:20 91 20 161/97 95 Room Air 02/08/18 19:45 96 20 142/71 95 Room Air 02/08/18 18:32 36.7 109 20 123/81 97 Room Air General Appearance: WD/WN, no apparent distress, + obese Head: normocephalic, atraumatic ENT: hearing grossly normal Respiratory/Chest: no respiratory distress, no accessory muscle use Abdomen/GI: soft, no organomegaly, no pulsatile mass, + tenderness (RUQ, RLQ TTP) Neurologic/Psych: alert, normal mood/affect, oriented x 3 Skin: normal color, warm/dry Laboratory Results Last 24 Hours Test 02/08/18 18:55 02/08/18 20:40 White Blood Count 7.13 K/uL Red Blood Count 5.02 M/uL Hemoglobin 10.5 g/dL Hematocrit 34.2 % Mean Corpuscular Volume 68.1 fL Mean Corpuscular Hemoglobin 20.9 pg Mean Corpuscular Hemoglobin Concent 30.7 g/dl Platelet Count 369 K/uL Mean Platelet Volume 8.1 fL Neutrophils (%) (Auto) 80.4 % Lymphocytes (%) (Auto) 13.2 % Monocytes (%) (Auto) 4.6 % Eosinophils (%) (Auto) 0.8 % Basophils (%) (Auto) 0.3 % Neutrophils # (Auto) 5.73 K/uL Lymphocytes # (Auto) 0.94 K/uL Monocytes # (Auto) 0.33 K/uL Eosinophils # (Auto) 0.06 K/uL Basophils # (Auto) 0.02 K/uL RDW Standard Deviation 47.7 fL RDW Coefficient of Variation 19.4 % Immature Granulocyte % (Auto) 0.7 % Immature Granulocyte # (Auto) 0.05 K/uL Microcytosis PRESENT Prothrombin Time 10.0 SECONDS Prothromb Time International Ratio 1.0 Activated Partial Thromboplast Time 30.1 SECONDS Partial Thromboplastin Ratio 1.2 Sodium Level 139 mmol/L Potassium Level 2.8 mmol/L Chloride Level 105 mmol/L Carbon Dioxide Level 23 mmol/L Anion Gap 11.0 mmol/L Blood Urea Nitrogen 15 mg/dl Creatinine 0.92 mg/dl Est Creatinine Clear Calc Drug Dose 80.8 ml/min Estimated GFR () 85.9 Estimated GFR (Non- 74.2 BUN/Creatinine Ratio 15.7 Random Glucose 173 mg/dl Calcium Level 8.6 mg/dl Total Bilirubin 0.3 mg/dl Direct Bilirubin 0.2 mg/dl Aspartate Amino Transf (AST/SGOT) 11 U/L Alanine Aminotransferase (ALT/SGPT) 26 U/L Alkaline Phosphatase 158 U/L Troponin I < 0.015 ng/ml Total Protein 7.1 gm/dl Albumin 2.5 gm/dl Urine Color YELLOW Urine Appearance CLEAR Urine pH 5.5 Urine Specific [place] 1.033 Urine Protein NEG Urine Glucose (UA) NEG Urine Ketones NEG Urine Occult Blood NEG Urine Nitrite POS Urine Bilirubin NEG Urine Urobilinogen NEG Urine Leukocyte Esterase MODERATE Urine WBC (Auto) >30 /hpf Urine RBC (Auto) 0-4 /hpf Urine Hyaline Casts (Auto) 0 /lpf Urine Epithelial Cells (Auto) >30 /lpf Urine Bacteria (Auto) 2+ Urine Yeast (Auto) BUDDING Assessment & Plan Acute cholecystitis Symptoms and CT findings correlate with acute cholecystitis. Plan for laparoscopic cholecystectomy w/ intraoperative cholangiogram, possible open with Dr. Mooney tomorrow AM. Risks, benefits, alternatives to the procedure were discussed - all questions answered. Admit med/surg, NPO after midnight, IV fluids, IV cipro and flagyl, IV pain medication PRN, IV Zofran PRN, SCDs. OR notified. Findings discussed with Dr. Mooney. Please contact with questions or concerns.
[2018-02-08] MEDS ORDERED: SODIUM CHLORIDE 0.9% 1000ML 1,000 ML IV SCH (23:59)
[2018-02-09] VITALS (8 sets, daily range): BP systolic 119–143; BP diastolic 76–93; PULSE 86–107; TEMP 36.3–36.9; O2SAT 91–95; Ht 157.5 cm; Wt 95.0 kg
[2018-02-09] MEDS: ACETAMINOPHEN IV 1,000 MG in EMPTY BAG 0 ML IV SCH ×3 (00:01→18:00)
[2018-02-09] MEDS: CIPROFLOXACIN / D5W 400 MG in PREMIXED IN D5W 200 ML IV SCH ×2 (00:10→11:58)
[2018-02-09] MEDS: METRONIDAZOLE / NSS 500 MG in PREMIXED NSS 100 ML IV SCH ×3 (00:16→18:56)
[2018-02-09] MEDS: MoRPHine SULFATE 4 MG/ML 1 ML CARP\\VIAL IV PRN ×2 (02:52→06:09)
--- NOTE | 2018-02-09 04:22 | History & Physical Bridge Note ---
H&P Re-Evaluation Bridge Note: ruqtenderness to back unchanged will proceed with [email or web address] possible open r and c explaine dto pt and I have examined the patient, reviewed the History & Physical and in the interval since the performance of the History & Physical I have noted the following changes of clinical significance: No changes noted
[2018-02-09 06:38] LABS: BASO % 0.5 %; BASO ABS # 0.03 K/uL (0-0.2); EOS % 2.9 %; EOS ABS # 0.16 K/uL (0-0.5); HEMATOCRIT 30.6 % (37-47); HEMOGLOBIN 9.5 g/dL (12.0-16.0); IG# 0.03 K/uL (0.00-0.02); LYMPH % 27.3 %; LYMPH ABS # 1.52 K/uL (1.2-3.4); MEAN CELL VOLUME 68.2 fL (80-100); MEAN CORPUSCULAR HEMOGLOBIN 21.2 pg (25-34); MEAN PLATELET VOLUME 8.2 fL (7.4-10.4); MONO % 8.8 %; MONO ABS # 0.49 K/uL (0.11-0.59); NEUT ABS # 3.33 K/uL (1.4-6.5); PLATELET COUNT 341 K/uL (130-400); RED CELL DISTRIBUTION WIDTH CV 19.5 % (11.5-14.5); RED CELL DISTRIBUTION WIDTH SD 48.3 fL (36.4-46.3); WHITE BLOOD COUNT 5.56 K/uL (4.8-10.8)
[2018-02-09 07:09] LABS: ALBUMIN 2.1 gm/dl (3.4-5.0); CALCIUM 8.3 mg/dl (8.5-10.1); CREATININE 0.61 mg/dl (0.60-1.20); POTASSIUM 3.3 mmol/L (3.5-5.1)
[2018-02-09 07:12] LABS: TOTAL PROTEIN 6.3 gm/dl (6.4-8.2)
[2018-02-09] MEDS ORDERED: PNEUMOCOCCAL POLYSACCHARIDES 25 MCG/0.5 ML VIAL/SYR IM. ONE (08:00)
[2018-02-09] MEDS ORDERED: PNEUMOCOCCAL ADMINISTRATION CHARGE ONE (08:00)
[2018-02-09] MEDS ORDERED: POTASSIUM CHLR 10 MEQ / WTR 10 MEQ in PREMIXED WATER 100 ML IV SCH (11:00)
[2018-02-09] MEDS: NSS + 20MEQ KCL 1000ML 1,000 ML IV SCH ×2 (11:57→18:49)
[2018-02-09] MEDS ORDERED: NURSING VERBAL MED ORDER ONE ×2 (12:00→18:00)
[2018-02-09] MEDS: MoRPHine SULFATE 2 MG/ML CARP IV PRN (12:01)
[2018-02-09] MEDS ORDERED: POTASSIUM CHLORIDE 20 MEQ TABCR PO ONE (12:15)
--- NOTE | 2018-02-09 12:32 | Medical Consult ---
Consultation Date of Consultation: Feb 09, 2018. Attending Physician: Aren Mooney M.D. Reason for Consultation: Medical clearance for surgery History of Present Illness Attending: Dr. Ricardo This is a 48-year-old female that presented with a history of 2 falls within the last 2 weeks. She felt that she had rib fractures and pain continued to worsen. She came in overnight because she felt as though she had worse pain and needed some relief. Incidentally she was found to have acute cholecystitis with no elevation of white blood cells and no fever. She was made n.p.o. and started on incentive spirometry overnight. She was also given 40 mEq of potassium suspension for hypokalemia. This morning she was found to have a low normal potassium. There was also concern for multiple skin lesions. We were consulted for medical management and to rule out scabies. 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 She has been on disability for back pain and previous back surgery performed in [facility]. She was seen previously by [facility] and had difficulty with providers at that time so she change her orthopedic surgeon and now follows in the [facility]. She also has history of gastric bypass several years ago and reports no follow-up regarding that surgery. Her does report that she has early satiety but no nausea vomiting and no diarrhea. She has grown children and 3 grandchildren aged 10-4. No history of lice scabies or other mites that she is aware of. Regarding her skin lesions, she states that she has severe pruritus which is suspected to be from chronic use of Lyrica. She does take Vistaril and Benadryl at home which has little effect. She has multiple open areas on her arms back chest and face. There is no evidence of burrowing regarding the skin lesions. There is also no evidence of eggs or other evidence of lice with close examination of the hair and scalp. She does have what appears to be dandruff in the hair which I suspect is from poor hygiene and chronic scratching of the scalp. There is no physical evidence of parasitic infestation of the skin or hair. She denies any fever, chills, sweats, rigors. She has no chest pain. She has no awareness of palpitations. She denies any prior history of hypokalemia or hypomagnesemia. She has no other acute complaints. 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 (12) Lumbago (13) Lumbar Disc Displacement (14) Lumbosacral Neuritis Nos (15) Migraine W/O Aura W/O Intract Mgrn W/O Status Migrainosus (16) Obesity, Nos (17) Polycystic Ovaries Surgical Problems: (1) Bariatric Surgery Status Family History Diabetes mellitus Social History Smoking Status: Never Smoker (Some cigarettes in high school but no smoking outside of high school) Smokeless Tobacco Use: No Alcohol Use: occasionally (Occasional beer with dinner when they eat out) Drug Use: none Marital Status: Housing Status: lives with family Occupation Status: employed Allergies Coded Allergies: Penicillins (Verified Allergy, Intermediate, HIVES/SEIZURES, 02/03/15) Sulfa Drugs (Verified Allergy, Intermediate, HIVES/SEIZURES, 02/03/15) Latex (Verified Allergy, Mild, rash, 02/08/18) Home Medications Home Meds and Scripts Medications Dose Route/Sig Max Daily Dose Days Date Category Benadryl Allergy (Diphenhydramine Hcl) 25 Mg Cap 25 Mg PO BID 02/08/18 Reported Doxepin (Doxepin Hcl) 100 Mg Cap 100 Mg PO HS 02/08/18 Reported Lyrica (Pregabalin) 200 Mg Cap 200 Mg PO TID 08/17/17 Reported Levothyroxine Sodium 150 Mcg Tab 150 Mcg PO QAM 08/17/17 Reported Luvox (Fluvoxamine Maleate) 100 Mg Tab 200 Mg PO HS 08/17/17 Reported Luvox (Fluvoxamine Maleate) 100 Mg Tab 100 Mg PO QAM 08/17/17 Reported Vistaril (Hydroxyzine Pamoate) 100 Mg Cap 100 Mg PO QID PRN 08/17/17 Reported Current Inpatient Medications Current Inpatient Medications Medications (Trade) Dose Ordered Sig/[place] Route Start Time Stop Time Status Last Admin Dose Admin Ioversol (Optiray 320) 100 ml UD PRN IV 02/08/18 19:30 02/12/18 19:29 Ondansetron HCl (Zofran Inj) 4 mg Q6H PRN IV 02/08/18 22:15 03/10/18 22:14 Acetaminophen 1000 mg/Empty Bag 100 ml @ 400 mls/hr Q8H IV 02/09/18 00:00 03/11/18 00:00 02/09/18 08:12 400 MLS/HR Morphine Sulfate (MoRPHine SULFATE INJ) 2 mg Q3HWA PRN IV 02/08/18 22:15 02/22/18 22:14 02/09/18 12:01 2 MG Morphine Sulfate (MoRPHine SULFATE INJ) 4 mg Q3HWA PRN IV 02/08/18 22:15 02/22/18 22:14 02/09/18 06:09 4 MG Ciprofloxacin/ Dextrose 400 mg/ Prmx 200 ml @ 100 mls/hr Q12H IV 02/09/18 00:00 02/10/18 00:00 02/09/18 11:58 100 MLS/HR Metronidazole 500 mg/Prmx 100 ml @ 100 mls/hr Q8H IV 02/08/18 23:00 02/09/18 22:59 02/09/18 07:12 100 MLS/HR Potassium Chloride/Sodium Chloride 1,000 ml @ 125 mls/hr Q8H IV 02/09/18 11:00 03/11/18 10:59 02/09/18 11:57 125 MLS/HR Potassium Chloride (Klor-Con Tab) 40 meq NOW ONCE PO 02/09/18 12:15 02/09/18 12:16 Review of Systems Constitutional: No fever, No chills, No sweats ENT: No unusual epistaxis Respiratory: No cough, No sputum, No wheezing, No shortness of breath, No hemoptysis Cardiovascular: No chest pain, No orthopnea, No edema, No palpitations Abdomen: + pain (Improved since admission), No nausea, No vomiting, No diarrhea , No GI bleeding Genitourinary - Female: No urinary incontinence, No hematuria Psychiatric: No depression symptoms Endocrine: No fatigue, No excessive thirst Hematologic / Lymphatic: No abnormal bleeding/bruising, No clotting problems, No swollen lymph nodes, No night sweats Integumentary: + rash, + itch, No new/changing skin lesions, No color change, No bleeding Physical Exam Date Time Temp Pulse Resp B/P (MAP) Pulse Ox O2 Delivery O2 Flow Rate FiO2 02/09/18 08:22 36.6 107 18 143/85 (104) 94 Room Air 02/09/18 07:25 Room Air 02/09/18 00:12 36.7 94 16 142/93 02/08/18 23:15 Room Air 02/08/18 23:00 Room Air 02/08/18 22:31 96 20 142/81 93 Room Air 02/08/18 21:30 94 20 152/105 95 Room Air 02/08/18 21:20 91 20 161/97 95 Room Air 02/08/18 19:45 96 20 142/71 95 Room Air 02/08/18 18:32 36.7 109 20 123/81 97 Room Air GENERAL : No acute distress. Anxious EYES: No icterus, gaze conjugate NOSE: No evidence of epistaxis MOUTH: No lesions or candidiasis. Dry mucosa and poor oral hygiene with evidence of dental caries NECK: Supple. No JVD or stridor LUNGS: CTA B/L, no wheezes, rales or rhonchi. Equal breath sounds bilaterally HEART: Regular, rate controlled. No appreciation of ectopy CHEST/BACK: Open scabbed lesions on the chest and back. All lesions are within reach of the patient. There is evidence of scratching with tracking of scabs were fingernails scraped the skin. No evidence of burrowing. No evidence of ringworm. No open or excoriated areas between the fingers and the toes. No unexplained ecchymosis ABDOMEN: Soft, NT, ND, BS Present EXTREMITIES: No LE edema, pedal pulses intact. No edema. Scabbed over areas on legs and arms from scratching. 2 small areas on the right forearm and one small area on the left forearm indicative of bites from a 6-month-old puppy. No unexplained ecchymosis. NEURO: A&OX3 Laboratory Results Last 24 Hours Test 02/08/18 18:55 02/08/18 20:40 02/09/18 00:00 02/09/18 06:07 White Blood Count 7.13 K/uL 5.56 K/uL Red Blood Count 5.02 M/uL 4.49 M/uL Hemoglobin 10.5 g/dL 9.5 g/dL Hematocrit 34.2 % 30.6 % Mean Corpuscular Volume 68.1 fL 68.2 fL Mean Corpuscular Hemoglobin 20.9 pg 21.2 pg Mean Corpuscular Hemoglobin Concent 30.7 g/dl 31.0 g/dl Platelet Count 369 K/uL 341 K/uL Mean Platelet Volume 8.1 fL 8.2 fL Neutrophils (%) (Auto) 80.4 % 60.0 % Lymphocytes (%) (Auto) 13.2 % 27.3 % Monocytes (%) (Auto) 4.6 % 8.8 % Eosinophils (%) (Auto) 0.8 % 2.9 % Basophils (%) (Auto) 0.3 % 0.5 % Neutrophils # (Auto) 5.73 K/uL 3.33 K/uL Lymphocytes # (Auto) 0.94 K/uL 1.52 K/uL Monocytes # (Auto) 0.33 K/uL 0.49 K/uL Eosinophils # (Auto) 0.06 K/uL 0.16 K/uL Basophils # (Auto) 0.02 K/uL 0.03 K/uL RDW Standard Deviation 47.7 fL 48.3 fL RDW Coefficient of Variation 19.4 % 19.5 % Immature Granulocyte % (Auto) 0.7 % 0.5 % Immature Granulocyte # (Auto) 0.05 K/uL 0.03 K/uL Microcytosis PRESENT Prothrombin Time 10.0 SECONDS Prothromb Time International Ratio 1.0 Activated Partial Thromboplast Time 30.1 SECONDS Partial Thromboplastin Ratio 1.2 Sodium Level 139 mmol/L 140 mmol/L Potassium Level 2.8 mmol/L 3.3 mmol/L Chloride Level 105 mmol/L 114 mmol/L Carbon Dioxide Level 23 mmol/L 23 mmol/L Anion Gap 11.0 mmol/L 3.0 mmol/L Blood Urea Nitrogen 15 mg/dl 10 mg/dl Creatinine 0.92 mg/dl 0.61 mg/dl Est Creatinine Clear Calc Drug Dose 80.8 ml/min 122.5 ml/min Estimated GFR () 85.9 125.1 Estimated GFR (Non- 74.2 108.0 BUN/Creatinine Ratio 15.7 17.2 Random Glucose 173 mg/dl 95 mg/dl Calcium Level 8.6 mg/dl 8.3 mg/dl Total Bilirubin 0.3 mg/dl 0.4 mg/dl Direct Bilirubin 0.2 mg/dl Aspartate Amino Transf (AST/SGOT) 11 U/L 12 U/L Alanine Aminotransferase (ALT/SGPT) 26 U/L 21 U/L Alkaline Phosphatase 158 U/L 141 U/L Troponin I < 0.015 ng/ml Total Protein 7.1 gm/dl 6.3 gm/dl Albumin 2.5 gm/dl 2.1 gm/dl Urine Color YELLOW Urine Appearance CLEAR Urine pH 5.5 Urine Specific [place] 1.033 Urine Protein NEG Urine Glucose (UA) NEG Urine Ketones NEG Urine Occult Blood NEG Urine Nitrite POS Urine Bilirubin NEG Urine Urobilinogen NEG Urine Leukocyte Esterase MODERATE Urine WBC (Auto) >30 /hpf Urine RBC (Auto) 0-4 /hpf Urine Hyaline Casts (Auto) 0 /lpf Urine Epithelial Cells (Auto) >30 /lpf Urine Bacteria (Auto) 2+ Urine Yeast (Auto) BUDDING Magnesium Level 2.0 mg/dl Lipase 52 U/L Hypochromasia PRESENT Echinocytes 1+ Globulin 4.2 gm/dl Albumin/Globulin Ratio 0.5 Assessment & Plan ACUTE CHOLECYSTITIS * Surgery consulted. Appreciate Dr. Mooney's input * Plan for laparoscopic versus open cholecystectomy later today * Further management per surgery HYPOKALEMIA * Received 40 mEq of potassium suspension last evening at 2000 hrs. * Potassium still low this morning. Ordered an additional 40 mEq of potassium suspension to be given immediately * Magnesium 2.0 * Follow serial labs but do not feel that an additional potassium level is needed prior to surgery CARDIAC * Hemodynamically stable * No prior history of cardiac disease * EKG with left ventricular hypertrophy with repolarization abnormality * Nonspecific T-wave abnormalities replaced inverted T waves in lateral leads * No peaked T waves * Troponin is negative * No chest pain or tightness ANEMIA * Hx of microcytic anemia * HgB 9.5 * Follow serial labs HISTORY OF GASTRIC BYPASS * Continue with early satiety regarding diet * Does not follow with anyone for years * Albumin level 2.5 * Suggests consulting nutrition for dietary education and meal planning ASTHMA * Oxygenating well on room air * No bronchospasm on exam * Incentive spirometry * Follow clinically ID * Positive for UTI -urinalysis with esterase and nitrate as well as bacteria. Urine culture pending * Currently on ciprofloxacin and metronidazole * Await ID and sensitivities DVT PROPHYLAXIS * No chemical prophylaxis secondary to impending surgery * Continue with SCDs Thank you very much for including us in the care of this patient. Please refer to Dr. Ricardo's addendum for further recommendations PA Physician Supervision Note: I interviewed and examined the patient. Discussed with Jay Salgado PAC and agree with findings and plan as documented in the note. 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 Her risk optimization is with electrolyte replacement pre operatively, I have reviewed her ECG, and the changes do not clinically correlate with symptoms to support ACS and these changes are due to electrolyte deficiencies. SHe has been chronically low on iron in the past having both transfusion of PRBC and infusion of iron, having no epigastric pain or melena at the present time( although will be at risk for anastomotic ulcers) Will recommend to proceed to surgery and pay close attention to K+, Mg++ and PPI or H2 linda vitals are reviewed and stable car is regular without murmurs lungs are clear abd is soft with reproducible RUQ tenderness Skin lesions do not appear to be from infestation will be Glad to follow along with you. Documented By: Wade Ricardo
[2018-02-09] MEDS ORDERED: LIDOCAINE/EPINEPHRINE 1% 20 ML VIAL ONE (13:46)
[2018-02-09] MEDS ORDERED: CONRAY 60% 50 ML VIAL ONE (13:46)
[2018-02-09] MEDS ORDERED: MIDAZOLAM HCL 1 MG/ML 2ML VIAL ONE (13:48)
[2018-02-09] MEDS ORDERED: LABETALOL HCL IV 5 MG/ML 20ML IV PRN (14:15)
[2018-02-09] MEDS ORDERED: ATROPINE SULFATE 0.1 MG/ML 5ML SYR IV PRN (14:15)
[2018-02-09] MEDS ORDERED: KETOROLAC TROMETHAMINE 30 MG/ML VIAL IV. PRN (14:15)
[2018-02-09] MEDS ORDERED: ONDANSETRON INJ 2 MG/ML 2 ML VIAL IV PRN (14:15)
[2018-02-09] MEDS ORDERED: HYDROmorphone INJ 2 MG/ML SYR/VIAL IV PRN (14:15)
[2018-02-09] MEDS ORDERED: PROPOFOL IV EMULSION 10 MG/ML 20 ML VIAL IV ONE (14:24)
[2018-02-09] MEDS ORDERED: ROCURONIUM BROMIDE 10 MG/ML 5 ML VIAL IV ONE (14:24)
[2018-02-09] MEDS ORDERED: DEXAMETHASONE SOD INJ 4 MG/ML VIAL ONE (14:24)
[2018-02-09] MEDS ORDERED: ONDANSETRON INJ 2 MG/ML 2 ML VIAL ONE (14:24)
[2018-02-09] MEDS ORDERED: LIDOCAINE HCL 2% 2 ML VIAL (20MG/ML) ONE (14:24)
[2018-02-09] MEDS ORDERED: FENTANYL CITRATE INJ 50 MCG/1 ML 2 ML VIAL ONE (14:24)
--- NOTE | 2018-02-09 16:04 | [facility] Post Operative Brief Note ---
Immediate Operative Summary Operative Date Feb 09, 2018. Pre-Operative Diagnosis Acute Cholecystitis Post-Operative Diagnosis Same as preoperative. Procedure(s) Performed Laparoscopic Cholecystectomy with Cholangiogram Surgeon Dr. Aren Mooney [employer] Services Internship Surgeon(s) Lynne Verma PA-C Estimated Blood Loss 20ml Findings See Below accc, dark fluid to ant abd wall and suhepatic to falciform lig ? old hemat Specimens CULTURE: 1.) Peritoneal Fluid PERMANENT: A.) Peritoneal Contents B.) Gallbladder and Contents Drains 19 neri sub hepatic Anesthesia Type General
[2018-02-09] MEDS ORDERED: hydrOXYzine HCL 25 MG TAB PO PRN (16:30)
--- NOTE | 2018-02-09 16:42 | DIAGNOSTIC IMAGING REPORT ---
CHOLANGIOGRAM O.R. CLINICAL HISTORY: 48 years-old Female presenting with macroscopic cholecystectomy. TECHNIQUE: Fluoroscopy was provided for an intraoperative cholangiogram status post cholecystectomy. Contrast was injected through the cystic duct remnant. COMPARISON: CT from 02/08/2018. FINDINGS: No peritoneal spillage of contrast. The common bile duct is normal in course and caliber. There are no filling defects seen within the common bile duct to suggest a retained stone. Contrast extends into the small bowel. There is no intrahepatic bile duct dilatation. Fluoroscopy dosage (mGy): 0.44. Fluoroscopy time: 1.6 seconds. Number of fluoroscopic spot images: 0. IMPRESSION: Fluoroscopy provided for an intraoperative cholangiogram status post cholecystectomy. No filling defects within the common bile duct or evidence of peritoneal spillage. Electronically signed by: Octavio Cerna M.D. 02/09/2018 4:41 PM Dictated Date/Time: 02/09/2018 4:40 PM
[2018-02-09] MEDS ORDERED: OXYCODONE/ACETAMINOPHEN 5-325 TAB PO PRN (16:45)
--- NOTE | 2018-02-09 17:18 | OPERATIVE REPORT ---
DATE OF OPERATION: 02/09/2018 SURGEON: Aren Mooney MD PIN GAME MACHINE INSPECTOR: Lynne Verma PA-C PREOPERATIVE DIAGNOSIS: Acute cholecystitis. POSTOPERATIVE DIAGNOSIS: Acute cholecystitis, cholelithiasis. PROCEDURE: Laparoscopic cholecystectomy, intraoperative cholangiogram. SUMMARY: The patient was brought into the operating room theater. The abdomen was prepped with Betadine solution and properly draped. I made a small transverse incision above the umbilicus sufficient enough to try to enter the Veress needle. The Veress needle was not sufficiently long to pass through the abdomen. Therefore, I enlarged the incision in umbilical area. I used Anum clamps to elevate the abdominal wall; so we could shorten the length between the skin and the abdominal wall toward the needle. The Veress needle was introduced without any problem. CO2 insufflated followed by 5 mm trocar. Point of entry inspected and no injury identified. Once we entered the abdomen, we were met. The patient had a significant amount of what appeared to be omentum with small bowel to the right of the falciform ligament, adherent to the abdominal wall. We could not visualize the liver. At the proctor, I have noted was an area in this omental area that looks like it may have been blood tinged; it was completely black, extensive, no consistency to it and almost remind of an old resolving hematoma. At this point, we had a window in the left upper quadrant. Under direct visualization, I placed a 5 mm trocar. With this, I was able then to bluntly free up the omentum and this black stain from the abdominal wall just by blunt dissection. Once we maneuvered this, we were able to get up into the liver area and the same type of stain was appreciated around top of the right lobe of the liver and what appeared to be eventually around the gallbladder. It did not seem to be arising from the gallbladder. Once we had that window, I was able then to place two 5 mm subcostal ports. Under direct visualization, we introduced anesthesia of 1% Xylocaine, placed a camera in the right subcostal port and visualized the falciform ligament where similarly we had this painted black tissue. Pictures were taken. I did free it up, suctioned it all out, came off easily. There was no evidence of any active bleeding. Part of this, at some area, there seems to be almost fibrosis. I did remove a piece for pathology but it still was benign. I am not sure how long it has been there or what caused that. We were able to identify the gallbladder, placed it under, elevated with a grasper, maneuvered the patient in reverse Trendelenburg and rotated to the left. I needed to place another 5 mm trocar in the epigastric area, then we were able to dissect out the triangle of Calot. The cystic duct was identified easily. We clipped proximally a #4 urethral catheter transversing the abdominal wall and a 14 Angiocath was positioned in the cystic duct. Serial x-rays were taken and showed no obstruction of the common bile duct. There was free flow into the duodenum. We saw some proximal hepatic radicle but that flowed easily into the duodenum though we could not feel significant. The cholangiocath was then removed. We choked on the cystic duct because it appeared to be quite long and doubly clipped. The gallbladder was taken down antegrade fashion, identified the anterior branch of the cystic artery which was doubly clipped and posteriorly was similarly identified, doubly clipped. We tried to leave as much of the peritoneum into the liver fossa, but it was hard to do. Gallbladder was thickened, not significantly inflamed with a lot of edema. Once we freed the gallbladder from the liver bed, placed in an Endopouch and took it out intact through the epigastric port. I would open it at the end and the patient did have stones in there even though by CAT scan did not show it. The subhepatic, suprahepatic area was then checked for hemostasis and appeared satisfactory. We had some oozing from the gallbladder fossa, but it was minimal and stopped. I did drain this with a 19 round Jamey drain, taken out medially in the epigastric port, taken out lateral to the subcostal port, attached to the skin edge with 2-0 silk, it was placed subhepatically. Prior to leaving the abdomen, we checked the trocar site for hemostasis and appeared satisfactory. Individual trocars were removed, last the umbilical trocar, no fascial stitches; only these were all 5 mm trocars, but 4-0 Monocryl subcutaneous, Steri-Strips applied. The procedure was tolerated well by the patient. Estimated blood loss approximately 20 mL. The patient was taken to recovery room in good condition. I attest to the content of the Intraoperative Record and any orders documented therein. Any exceptions are noted below. MTDD
--- NOTE | 2018-02-09 17:50 | Anesthesiology Progress Note ---
Anesthesia Post Op Note Date & Time Feb 09, 2018 at 17:50 Vital Signs Pain Intensity: 0 Vital Signs Past 12 Hours Date Time Temp Pulse Resp B/P (MAP) Pulse Ox O2 Delivery O2 Flow Rate FiO2 02/09/18 17:15 88 18 126/77 95 Nasal Cannula 2 Oxymask 02/09/18 17:05 36.7 88 18 128/84 96 Nasal Cannula 2 Oxymask 02/09/18 17:00 88 18 114/86 96 Nasal Cannula 2 Oxymask 02/09/18 16:50 89 18 128/89 98 Oxymask 5 02/09/18 16:40 88 18 124/84 97 Oxymask 5 02/09/18 16:34 36.4 89 16 128/85 94 Oxymask 5 02/09/18 08:22 36.6 107 18 143/85 (104) 94 Room Air 02/09/18 07:25 Room Air Notes Mental Status: alert / awake / arousable, participated in evaluation Pt Amnestic to Procedure: Yes Nausea / Vomiting: adequately controlled Pain: adequately controlled Airway Patency, RR, SpO2: stable & adequate BP & HR: stable & adequate Hydration State: stable & adequate Anesthetic Complications: no major complications apparent
[2018-02-09] MEDS: OXYCODONE/ACETAMINOPHEN 5-325 TAB PO PRN (18:47)
[2018-02-09] MEDS: FLUVOXAMINE MALEATE 50 MG TAB PO SCH (20:41)
[2018-02-09] MEDS: DOXEPIN HCL 50 MG CAP PO SCH (20:41)
[2018-02-09] MEDS: PREGABALIN 100 MG CAP PO SCH (20:46)
[2018-02-10] MEDS: CIPROFLOXACIN / D5W 400 MG in PREMIXED IN D5W 200 ML IV SCH (00:45)
[2018-02-10] MEDS: ACETAMINOPHEN IV 1,000 MG in EMPTY BAG 0 ML IV SCH (00:52)
[2018-02-10] MEDS: METRONIDAZOLE / NSS 500 MG in PREMIXED NSS 100 ML IV SCH (01:36)
[2018-02-10 03:20] VITALS: BP 130/71; PULSE 91; TEMP 36.7; O2SAT 90
[2018-02-10 03:24] VITALS: O2SAT 97
[2018-02-10] MEDS: NSS + 20MEQ KCL 1000ML 1,000 ML IV SCH ×3 (03:31→19:06)
[2018-02-10 04:52] LABS: BASO % 1.1 %; BASO ABS # 0.06 K/uL (0-0.2); EOS % 2.2 %; EOS ABS # 0.12 K/uL (0-0.5); HEMATOCRIT 29.1 % (37-47); HEMOGLOBIN 8.8 g/dL (12.0-16.0); IG# 0.07 K/uL (0.00-0.02); LYMPH ABS # 1.45 K/uL (1.2-3.4); MEAN CORPUSCULAR HEMOGLOBIN 21.2 pg (25-34); MEAN CORPUSCULAR HGB CONC 30.2 g/dl (32-36); MEAN PLATELET VOLUME 7.8 fL (7.4-10.4); MONO % 8.4 %; MONO ABS # 0.45 K/uL (0.11-0.59); NEUT ABS # 3.22 K/uL (1.4-6.5); PLATELET COUNT 315 K/uL (130-400); RED CELL DISTRIBUTION WIDTH CV 19.7 % (11.5-14.5); RED CELL DISTRIBUTION WIDTH SD 50.3 fL (36.4-46.3); WHITE BLOOD COUNT 5.37 K/uL (4.8-10.8)
[2018-02-10 05:23] LABS: CALCIUM 7.4 mg/dl (8.5-10.1); CREATININE 0.55 mg/dl (0.60-1.20); POTASSIUM 4.5 mmol/L (3.5-5.1)
[2018-02-10] MEDS: LEVOTHYROXINE 150 MCG TAB PO SCH (05:51)
[2018-02-10 06:48] VITALS: BP 138/80; PULSE 87; TEMP 36.2; O2SAT 97
--- NOTE | 2018-02-10 06:55 | Surgery Progress Note ---
Surgery Progress Note Date of Service Feb 10, 2018. Subjective Post OP Day: 1 + feeling well, + complaints (She has not been urinating, bladder scanned and straight cathed twice overnight.), + bowel movement, + flatus, + pain controlled , + diet (Tolerating clears), No nausea, No vomiting Objective Vital Signs: Date Time Temp Pulse Resp B/P (MAP) Pulse Ox O2 Delivery O2 Flow Rate FiO2 02/10/18 03:24 97 Nasal Cannula 2.0 02/10/18 03:20 36.7 91 16 130/71 (90) 90 Room Air 02/09/18 23:45 Room Air 02/09/18 23:09 36.7 86 17 120/76 (91) 91 Room Air 02/09/18 20:30 36.9 93 18 121/83 (96) 92 Room Air 02/09/18 19:33 36.5 96 18 121/79 (93) 95 Nasal Cannula 2.0 02/09/18 18:30 36.5 90 18 129/82 (98) 94 Nasal Cannula 2.0 02/09/18 18:16 36.3 89 18 119/83 (95) 93 02/09/18 17:30 95 Nasal Cannula 2.0 Oxymask 02/09/18 17:30 95 Nasal Cannula 2.0 Oxymask 02/09/18 17:30 36.8 89 18 139/78 (98) 95 Nasal Cannula 2.0 02/09/18 17:15 88 18 126/77 95 Nasal Cannula 2 Oxymask 02/09/18 17:05 36.7 88 18 128/84 96 Nasal Cannula 2 Oxymask 02/09/18 17:00 88 18 114/86 96 Nasal Cannula 2 Oxymask 02/09/18 16:50 89 18 128/89 98 Oxymask 5 02/09/18 16:40 88 18 124/84 97 Oxymask 5 02/09/18 16:34 36.4 89 16 128/85 94 Oxymask 5 02/09/18 08:22 36.6 107 18 143/85 (104) 94 Room Air 02/09/18 07:25 Room Air Physical Exam: DAVID drainage (160 ml output yesterday, serosang) General Appearance: WD/WN, no apparent distress Head: normocephalic, atraumatic Respiratory/Chest: no respiratory distress, no accessory muscle use Abdomen: non distended, soft, no organomegaly, no pulsatile mass, + tenderness (Incisional) Incision(s): clean, dry, intact, no erythema, no drainage Laboratory Results: Results Past 24 Hours Test 02/10/18 04:31 Range/Units White Blood Count 5.37 4.8-10.8 K/uL Red Blood Count 4.16 4.2-5.4 M/uL Hemoglobin 8.8 12.0-16.0 g/dL Hematocrit 29.1 37-47 % Mean Corpuscular Volume 70.0 80-100 fL Mean Corpuscular Hemoglobin 21.2 25-34 pg Mean Corpuscular Hemoglobin Concent 30.2 32-36 g/dl Platelet Count 315 130-400 K/uL Mean Platelet Volume 7.8 7.4-10.4 fL Neutrophils (%) (Auto) 60.0 % Lymphocytes (%) (Auto) 27.0 % Monocytes (%) (Auto) 8.4 % Eosinophils (%) (Auto) 2.2 % Basophils (%) (Auto) 1.1 % Neutrophils # (Auto) 3.22 1.4-6.5 K/uL Lymphocytes # (Auto) 1.45 1.2-3.4 K/uL Monocytes # (Auto) 0.45 0.11-0.59 K/uL Eosinophils # (Auto) 0.12 0-0.5 K/uL Basophils # (Auto) 0.06 0-0.2 K/uL RDW Standard Deviation 50.3 36.4-46.3 fL RDW Coefficient of Variation 19.7 11.5-14.5 % Immature Granulocyte % (Auto) 1.3 % Immature Granulocyte # (Auto) 0.07 0.00-0.02 K/uL Hypochromasia PRESENT Microcytosis PRESENT Sodium Level 144 136-145 mmol/L Potassium Level 4.5 3.5-5.1 mmol/L Chloride Level 113 98-107 mmol/L Carbon Dioxide Level 27 21-32 mmol/L Anion Gap 4.0 3-11 mmol/L Blood Urea Nitrogen 6 7-18 mg/dl Creatinine 0.55 0.60-1.20 mg/dl Est Creatinine Clear Calc Drug Dose 135.9 ml/min Estimated GFR () 129.5 Estimated GFR (Non- 111.7 BUN/Creatinine Ratio 10.1 10-20 Random Glucose 96 70-99 mg/dl Calcium Level 7.4 8.5-10.1 mg/dl Iron Level 17 35-150 mcg/dl Microbiology Results 02/09/18 Gram Stain, Received Pending 02/09/18 Bacterial Culture, Received Pending 02/09/18 Gram Stain, Received Pending 02/09/18 Bacterial Culture, Received Pending Assessment & Plan POD #1 s/p lap deyvi w/ IOC Patient seen and examined with Dr. Mooney. Pain controlled, Abdomen soft, non-distended, incisional tenderness. Tolerating Clears, No N/V. Having some trouble with urination, straight cathed twice - will continue to monitor. Will try Full liquids - ADAT. Keep DAVID. Possible D/C today or tomorrow pending return of urinary function. Please contact with questions or concerns.
[2018-02-10] MEDS ORDERED: OXYC-57 PO (07:17)
[2018-02-10] MEDS ORDERED: CIPR1TAB10 PO (07:17)
--- NOTE | 2018-02-10 07:23 | Discharge Instructions ---
Discharge Instructions Date of Service Feb 10, 2018. Admission Reason for Admission: Acute Cholecystitis Discharge Discharge Diagnosis / Problem: Acute Cholecystitis Discharge Goals Goal(s): Decrease discomfort, Improve function Activity Recommendations Activity Limitations: as noted below Lifting Limitations: no more than 10 pounds Exercise/Sports Limitations: until after follow-up appointment May Resume Sexual Activity: after follow-up appointment Shower/Bathe: no limitations Driving or Machine Use: resume 1 day after discharge . Instructions / Follow-Up Instructions / Follow-Up You have steri-strips over your incisions, please leave those on until they begin to fall off by themselves. You may shower, but please do not soak or scrub your incisions. Please call the [facility] Surgery [facility] at [phone] to arrange to have your drain removed in the office. Please follow-up with Dr. Mooney in the General Surgery Clinic located at [address] [place] [address] [place] Rae in 1-2 weeks. Please call [phone] to schedule this appointment. Please call the General Surgery Clinic with any questions or concerns. You have been prescribed an outpatient antibiotic, Macrobid. Please take this prescription as prescribed. You will need to follow-up with your primary care provided within 1 week of discharge. Upcoming Appointments: Urology, Dr. López, 02/14/2018 at 11:20AM. Please call the Urology Clinic at [phone] with any questions or concerns. Urology Clinic is located at [address] [place] [address] [place] [id number]. Current Hospital Diet Patient's current hospital diet: Full Liquid Diet Discharge Diet Recommended Diet: Regular Diet Procedures Procedures Performed: Laparoscopic Cholecystectomy with Cholangiogram Pending Studies Studies pending at discharge: yes List of pending studies: Pathology report. Medical Emergencies . Who to Call and When: Medical Emergencies: If at any time you feel your situation is an emergency, please call 911 immediately. . Non-Emergent Contact Non-Emergency issues call your: Primary Care Provider, Surgeon Call Non-Emergent contact if: temperature is above 101.5, your pain is not controlled, wound has increased drainage, wound has increased redness . "Provider Documentation" section prepared by Lynne Verma. . [facility] Drug Monitoring Program Search Results: patient reviewed within database, no issues identified
[2018-02-10] MEDS: OXYCODONE/ACETAMINOPHEN 5-325 TAB PO PRN ×2 (07:59→13:36)
[2018-02-10] MEDS: FLUVOXAMINE MALEATE 50 MG TAB PO SCH ×2 (09:00→22:08)
[2018-02-10] MEDS: PREGABALIN 100 MG CAP PO SCH ×3 (09:04→22:06)
--- NOTE | 2018-02-10 09:23 | Hospitalist Progress Note ---
Hospitalist Progress Note Date of Service Feb 10, 2018. (Melissa Ramirez PA-C) Subjective Pt evaluation today including: conversation w/ patient, physical exam, chart review, lab review, review of studies, conversation w/ hospice care consultant (General Surgery) Pain: Well controlled PO Intake: Good Voiding: no voiding problems The patient was seen and examined this morning. Pt reports doing well today. Patient notes that she is having some incisional pain surrounding the drain feels that is pulling, however drain is hanging down her leg. Patient denies any fevers, sweats or chills. She has been tolerating a diet without any difficulty. Patient is passing gas and moving her bowels. She has not yet voided and has required straight cath 2. Patient was informed about MRSA UTI and discussion was held regarding antibiotics 7 days. This was also discussed with general surgery. Additional Comments: Constitutional: No fever, sweats or chills Eyes: No diplopia, no worsening or blurred vision ENT: normal hearing, no trouble swallowing Respiratory: No cough, sputum, dyspnea at rest or on exertion Cardiovascular: No chest pain, tightness or palpitations Abdomen: See HPI Neurologic: No weakness, numbness/tingling, or balance problems Psychiatric: hx of anxiety or depression-controlled Skin: + itch but mild with Benadryl/Vistaril on board (Melissa Ramirez PA-C) Objective Vital Signs Date Time Temp Pulse Resp B/P (MAP) Pulse Ox O2 Delivery O2 Flow Rate FiO2 02/10/18 06:48 36.2 87 18 138/80 (99) 97 Room Air 02/10/18 03:24 97 Nasal Cannula 2.0 02/10/18 03:20 36.7 91 16 130/71 (90) 90 Room Air 02/09/18 23:45 Room Air 02/09/18 23:09 36.7 86 17 120/76 (91) 91 Room Air 02/09/18 20:30 36.9 93 18 121/83 (96) 92 Room Air 02/09/18 19:33 36.5 96 18 121/79 (93) 95 Nasal Cannula 2.0 02/09/18 18:30 36.5 90 18 129/82 (98) 94 Nasal Cannula 2.0 02/09/18 18:16 36.3 89 18 119/83 (95) 93 02/09/18 17:30 95 Nasal Cannula 2.0 Oxymask 02/09/18 17:30 95 Nasal Cannula 2.0 Oxymask 02/09/18 17:30 36.8 89 18 139/78 (98) 95 Nasal Cannula 2.0 02/09/18 17:15 88 18 126/77 95 Nasal Cannula 2 Oxymask 02/09/18 17:05 36.7 88 18 128/84 96 Nasal Cannula 2 Oxymask 02/09/18 17:00 88 18 114/86 96 Nasal Cannula 2 Oxymask 02/09/18 16:50 89 18 128/89 98 Oxymask 5 02/09/18 16:40 88 18 124/84 97 Oxymask 5 02/09/18 16:34 36.4 89 16 128/85 94 Oxymask 5 (Melissa Ramirez PA-C) Physical Exam Notes: Constitutional: WD/AT Eyes: PERRL, EOMI ENT: hearing grossly normal, pharynx normal Respiratory: On room air, no respiratory distress, lungs clear, no adventitious breath sounds, no accessory muscle use Cardiovascular: RRR no MRGs, peripheral pulses intact Abdomen: NABS x 4, nondistended, mildly tender near incision sites,, no organomegaly, + incision sites appear to be well healed, covered in Steri- Strips. Right upper quadrant DAVID drain in place Extremities: Non-tender, no pedal edema, no calf tenderness with palpation Neurologic: AAO x 3, CN II-XII intact, no motor weakness Psychiatric: Normal mood and affect Skin: Numerous areas of excoriations over the back chest arms and legs. Does not appear to have any burrowing consistent with scabies. Skin on scalp is dry , without evidence of lice. (Melissa Ramirez PA-C) Laboratory Results Last 24 Hours Test 02/10/18 04:31 White Blood Count 5.37 K/uL Red Blood Count 4.16 M/uL Hemoglobin 8.8 g/dL Hematocrit 29.1 % Mean Corpuscular Volume 70.0 fL Mean Corpuscular Hemoglobin 21.2 pg Mean Corpuscular Hemoglobin Concent 30.2 g/dl Platelet Count 315 K/uL Mean Platelet Volume 7.8 fL Neutrophils (%) (Auto) 60.0 % Lymphocytes (%) (Auto) 27.0 % Monocytes (%) (Auto) 8.4 % Eosinophils (%) (Auto) 2.2 % Basophils (%) (Auto) 1.1 % Neutrophils # (Auto) 3.22 K/uL Lymphocytes # (Auto) 1.45 K/uL Monocytes # (Auto) 0.45 K/uL Eosinophils # (Auto) 0.12 K/uL Basophils # (Auto) 0.06 K/uL RDW Standard Deviation 50.3 fL RDW Coefficient of Variation 19.7 % Immature Granulocyte % (Auto) 1.3 % Immature Granulocyte # (Auto) 0.07 K/uL Hypochromasia PRESENT Microcytosis PRESENT Sodium Level 144 mmol/L Potassium Level 4.5 mmol/L Chloride Level 113 mmol/L Carbon Dioxide Level 27 mmol/L Anion Gap 4.0 mmol/L Blood Urea Nitrogen 6 mg/dl Creatinine 0.55 mg/dl Est Creatinine Clear Calc Drug Dose 135.9 ml/min Estimated GFR () 129.5 Estimated GFR (Non- 111.7 BUN/Creatinine Ratio 10.1 Random Glucose 96 mg/dl Calcium Level 7.4 mg/dl Iron Level 17 mcg/dl Vitamin B12 Level 893 pg/mL (Melissa Ramirez, PAIsaiahC) Assessment and Plan 48 yo F with Acute cholecystitis - S/p lap deyvi by Dr. Mooney on 02/09 - Pain control, dvt ppx, bowel regimen on board per primary team - Patient has not required any IV analgesia over the past 24 hours -she is agreeable to discharge to home Hypokalemia - resolved, K = 4.5 today. Follow prp during hospital stay Microcytic anemia - Hgb 8.8 today, follow cbc -likely partially dilutional due to IVF Hx gastric bypass - Continue with early satiety regarding diet- Does not follow with anyone for years left PCP to follow this up as an outpatient - Moderate to severe protein malnutrition - Albumin level 2.5 - Suggests consulting nutrition for dietary education and meal planning - recommended she drink 1 can of boost daily Asthma - Oxygenating well on room air, encourage incentive spirometry and ambulation s/ p surgical procedure as above. UTI MRSA - UCx growing staph aureus MRSA on 02/10- sensitive to macrobid so will prescribe 100 mg BID x 7 days at time of discharge - discussed with general surgery - Pt has required straight cath x 2 today, encouraged oral fluids. - Currently on ciprofloxacin and metronidazole during hospital stay - dc upon discharge. DVT ppx: scds CODE STATUS: FULL Disposition: From home, lives with , likely discharge later today per primary team (Melissa Ramirez, BORIS) PA Physician Supervision Note: I interviewed and examined the patient. Discussed with Melissa Ramirez PAC and agree with findings and plan as documented in the note. Any exceptions or clarifications are listed here: None Patient is doing well after cholecystectomy she continues to have her chronic low back pain which is being controlled by Lyrica her hypokalemia has been augmented she is tolerating oral intake Vital signs show temperature 36.2 respiration rate 18 BP is 130/80 and heart rate is 87 her cardiac exam is regular lungs are clear abdomen is with normal active bowel sounds soft mildly tender in the right upper quadrant she is a drain in place Patient is being discharged by surgery to have continued outpatient follow-up with regard to drain removal and we will continue to recommend her current outpatient medications with attention for follow-up for chronic low back pain Documented By: Wade Ricardo (Wade Ricardo M.D.)
[2018-02-10] MEDS ORDERED: NITR1CAP16 PO (10:20)
--- NOTE | 2018-02-10 10:24 | Surgery Progress Note ---
Surgery Progress Note Date of Service Feb 10, 2018. Objective Vital Signs: Date Time Temp Pulse Resp B/P (MAP) Pulse Ox O2 Delivery O2 Flow Rate FiO2 02/10/18 07:50 Room Air 02/10/18 06:48 36.2 87 18 138/80 (99) 97 Room Air 02/10/18 03:24 97 Nasal Cannula 2.0 02/10/18 03:20 36.7 91 16 130/71 (90) 90 Room Air 02/09/18 23:45 Room Air 02/09/18 23:09 36.7 86 17 120/76 (91) 91 Room Air 02/09/18 20:30 36.9 93 18 121/83 (96) 92 Room Air 02/09/18 19:33 36.5 96 18 121/79 (93) 95 Nasal Cannula 2.0 02/09/18 18:30 36.5 90 18 129/82 (98) 94 Nasal Cannula 2.0 02/09/18 18:16 36.3 89 18 119/83 (95) 93 02/09/18 17:30 95 Nasal Cannula 2.0 Oxymask 02/09/18 17:30 95 Nasal Cannula 2.0 Oxymask 02/09/18 17:30 36.8 89 18 139/78 (98) 95 Nasal Cannula 2.0 02/09/18 17:15 88 18 126/77 95 Nasal Cannula 2 Oxymask 02/09/18 17:05 36.7 88 18 128/84 96 Nasal Cannula 2 Oxymask 02/09/18 17:00 88 18 114/86 96 Nasal Cannula 2 Oxymask 02/09/18 16:50 89 18 128/89 98 Oxymask 5 02/09/18 16:40 88 18 124/84 97 Oxymask 5 02/09/18 16:34 36.4 89 16 128/85 94 Oxymask 5 Laboratory Results: Results Past 24 Hours Test 02/10/18 04:31 Range/Units White Blood Count 5.37 4.8-10.8 K/uL Red Blood Count 4.16 4.2-5.4 M/uL Hemoglobin 8.8 12.0-16.0 g/dL Hematocrit 29.1 37-47 % Mean Corpuscular Volume 70.0 80-100 fL Mean Corpuscular Hemoglobin 21.2 25-34 pg Mean Corpuscular Hemoglobin Concent 30.2 32-36 g/dl Platelet Count 315 130-400 K/uL Mean Platelet Volume 7.8 7.4-10.4 fL Neutrophils (%) (Auto) 60.0 % Lymphocytes (%) (Auto) 27.0 % Monocytes (%) (Auto) 8.4 % Eosinophils (%) (Auto) 2.2 % Basophils (%) (Auto) 1.1 % Neutrophils # (Auto) 3.22 1.4-6.5 K/uL Lymphocytes # (Auto) 1.45 1.2-3.4 K/uL Monocytes # (Auto) 0.45 0.11-0.59 K/uL Eosinophils # (Auto) 0.12 0-0.5 K/uL Basophils # (Auto) 0.06 0-0.2 K/uL RDW Standard Deviation 50.3 36.4-46.3 fL RDW Coefficient of Variation 19.7 11.5-14.5 % Immature Granulocyte % (Auto) 1.3 % Immature Granulocyte # (Auto) 0.07 0.00-0.02 K/uL Hypochromasia PRESENT Microcytosis PRESENT Sodium Level 144 136-145 mmol/L Potassium Level 4.5 3.5-5.1 mmol/L Chloride Level 113 98-107 mmol/L Carbon Dioxide Level 27 21-32 mmol/L Anion Gap 4.0 3-11 mmol/L Blood Urea Nitrogen 6 7-18 mg/dl Creatinine 0.55 0.60-1.20 mg/dl Est Creatinine Clear Calc Drug Dose 135.9 ml/min Estimated GFR () 129.5 Estimated GFR (Non- 111.7 BUN/Creatinine Ratio 10.1 10-20 Random Glucose 96 70-99 mg/dl Calcium Level 7.4 8.5-10.1 mg/dl Iron Level 17 35-150 mcg/dl Vitamin B12 Level 893 211-911 pg/mL Microbiology Results 02/09/18 Gram Stain - Final, Resulted 02/09/18 Bacterial Culture, Resulted Pending 02/09/18 Gram Stain - Final, Resulted 02/09/18 Bacterial Culture, Resulted Pending Assessment & Plan Assessment POD #1- s/p Laparoscopic Cholecystectomy. Plan: Patient seen and examined this AM by Dr. Mooney and IDA Pierre - doing well from surgical standpoint. Received call from patient's nurse around 9:30AM stating that urine culture returned Staph. aureus- MRSA. Sensitivity report also included in results. Contacted Rosalie at [facility] who was aware of the culture results. Met and spoke with Roula Ramirez PA-C with Hospitalist team- reviewed sensitivities as well- agree on outpatient Macrobid 100mg BID x 7 days. Prescription on chart. Will cancel Cipro prescription. Patient to follow-up with PCP in 1 week for follow-up. Patient still unable to void on own- patient has been bladder scanned x 2 and has been straight cath x 2. Spoke with Urology, Randa Adkins, who recommends that patient receive humphreys catheter- Patient will be discharged with humphreys and can follow-up with Urology in 3-[address] Mooney made aware of plan and is in agreement. Patient ok for discharge from surgical standpoint.
[2018-02-10] MEDS ORDERED: NURSING VERBAL MED ORDER ONE (10:30)
[2018-02-10 15:24] VITALS: BP 142/78; PULSE 87; TEMP 36.8; O2SAT 97
--- NOTE | 2018-02-10 16:34 | Progress Note ---
Progress Note Date of Service Feb 10, 2018. Progress Note refusing to have cath, bladder scan 650 doesn't think she can manage a humphreys at home explained reason for humphreys is for bladder rest and will likely be removed Saturday she wants to try to void on her own
[2018-02-10] MEDS: hydrOXYzine HCL 25 MG TAB PO SCH ×2 (19:06→22:09)
[2018-02-10] MEDS: NITROFURANTOIN MONOHYDRATE 100 MG CAP PO SCH ×2 (19:06→22:07)
[2018-02-10 20:10] VITALS: BP 130/87; PULSE 93; TEMP 36.7; O2SAT 96
[2018-02-10] MEDS ORDERED: METOCLOPRAMIDE HCL INJ 5 MG/ML 2 ML VIAL IV. STA (21:49)
[2018-02-10] MEDS: DOXEPIN HCL 50 MG CAP PO SCH (22:09)
[2018-02-10 23:50] VITALS: BP 131/60; PULSE 102; TEMP 37; O2SAT 91
[2018-02-11] MEDS: NSS + 20MEQ KCL 1000ML 1,000 ML IV SCH (03:52)
[2018-02-11] MEDS: MoRPHine SULFATE 2 MG/ML CARP IV PRN (04:05)
[2018-02-11] MEDS: LEVOTHYROXINE 150 MCG TAB PO SCH (05:27)
--- NOTE | 2018-02-11 07:47 | Surgery Progress Note ---
Surgery Progress Note Date of Service Feb 11, 2018. Subjective Post OP Day: 2 + feeling well, + ambulating, + pain controlled, No nausea, No vomiting Patient unable to void on own yesterday. Humphreys catheter had to be placed. Objective Vital Signs: Date Time Temp Pulse Resp B/P (MAP) Pulse Ox O2 Delivery O2 Flow Rate FiO2 02/10/18 23:50 37.0 102 20 131/60 (83) 91 Room Air 02/10/18 23:15 Room Air 02/10/18 20:10 36.7 93 18 130/87 (101) 96 Room Air 02/10/18 19:00 Room Air 02/10/18 15:24 36.8 87 18 142/78 (99) 97 Room Air 02/10/18 07:50 Room Air Physical Exam: DAVID drainage General Appearance: WD/WN, no apparent distress Head: normocephalic, atraumatic Abdomen: non distended, soft, + tenderness (at incision sites ) Assessment & Plan POD #2- s/p Laparoscopic Cholecystectomy Patient doing well this AM- humphreys catheter in place, DAVID drain in abdomen in place. Patient to be discharged with both DAVID drain and humphreys catheter. Pain controlled, tolerating diet. Patient to be discharged today. Return precautions discussed with patient. Patient has follow-up appointment with Dr. López to discuss possible humphreys removal on Saturday, 02/14. Patient to follow-up with Gen Surgery same day for possible abdominal drain removal. Assessment POD #1- s/p Laparoscopic Cholecystectomy. Plan: Patient seen and examined this AM by Dr. Mooney and IDA Pierre - doing well from surgical standpoint. Received call from patient's nurse around 9:30AM stating that urine culture returned Staph. aureus- MRSA. Sensitivity report also included in results. Contacted Rosalie at [facility] who was aware of the culture results. Met and spoke with Roula Ramirez PA-C with Hospitalist team- reviewed sensitivities as well- agree on outpatient Macrobid 100mg BID x 7 days. Prescription on chart. Will cancel Cipro prescription. Patient to follow-up with PCP in 1 week for follow-up. Patient still unable to void on own- patient has been bladder scanned x 2 and has been straight cath x 2. Spoke with Urology, Randa Adkins, who recommends that patient receive humphreys catheter- Patient will be discharged with humphreys and can follow-up with Urology in 3-[address] Mooney made aware of plan and is in agreement. Patient ok for discharge from surgical standpoint.
--- NOTE | 2018-02-11 07:51 | SURGERY PROGRESS NOTE ---
DATE: 02/11/2018 Ashu is 48 hours postop laparoscopic cholecystectomy. She went into urinary retention. She refused a Camarena initially yesterday, then it was inserted. Her last vitals showed a temperature of 37, pulse 102, respirations 20, blood pressure 131/60, O2 sats 91 on room air. Jamey drainage is 120, serosanguineous. Urine output was 800 last night. Laboratory-edwards, yesterday her hemoglobin is 8.8, WBCs were 5.37 without a left shift. The path is pending. The abdomen is softly distended as expected postoperatively. At this point, hopefully we will get the patient home, continue treating her for MRSA UTI, have her come back in the office to take the Jamey drain out. She is reluctant to go home with all these tubes as she wants to have them all out, but I think at this point she is stable enough that she could be discharged and manage her urinary catheter and her Jamey drain.
[2018-02-11 08:15] VITALS: BP 148/88; PULSE 96; TEMP 37; O2SAT 96
[2018-02-11 08:18] VITALS: BP 148/88; PULSE 96; TEMP 37; O2SAT 96
[2018-02-11] MEDS: hydrOXYzine HCL 25 MG TAB PO SCH (08:28)
[2018-02-11] MEDS: FLUVOXAMINE MALEATE 50 MG TAB PO SCH (08:29)
[2018-02-11] MEDS: NITROFURANTOIN MONOHYDRATE 100 MG CAP PO SCH (08:30)
[2018-02-11] MEDS: PREGABALIN 100 MG CAP PO SCH (08:32)
[2018-02-11] MEDS ORDERED: OXYCODONE/ACETAMINOPHEN 5-325 TAB ONE (12:23)
[2018-02-11] MEDS ORDERED: NURSING VERBAL MED ORDER ONE (12:30)
[2018-02-11] MEDS ORDERED: OXYCODONE/ACETAMINOPHEN 5-325 TAB PO ONE (12:30)
== END 2018-02-11 12:42 | disposition home or self-care (01) | DRG 417 ==
LOC: C.EDB 18:32 → UNDOADMIN 22:07 → C.MSN 22:07 → ENRESERV 22:22
PROVIDERS: ADMIT Surgery; ATTEND Surgery
PROC: 0FT44ZZ Resection of Gallbladder, Percutaneous Endoscopic Approach (ICD-10-PCS; principal; 2018-02-09 12:00)
DX: K80.00 Calculus of gallbladder with acute cholecystitis without obstruction (principal); E43 Unspecified severe protein-calorie malnutrition; N39.0 Urinary tract infection, site not specified; B95.62 Methicillin resistant Staphylococcus aureus infection as the cause of diseases classified elsewhere; E87.6 Hypokalemia; D50.9 Iron deficiency anemia, unspecified; R33.9 Retention of urine, unspecified; R29.6 Repeated falls; I10 Essential (primary) hypertension; E03.9 Hypothyroidism, unspecified; K21.9 Gastro-esophageal reflux disease without esophagitis; M48.061 Spinal stenosis, lumbar region without neurogenic claudication; L30.9 Dermatitis, unspecified; E66.9 Obesity, unspecified; J45.909 Unspecified asthma, uncomplicated; Z79.899 Other long term (current) drug therapy; Z91.81 History of falling; Z88.0 Allergy status to penicillin; Z88.2 Allergy status to sulfonamides; Z91.040 Latex allergy status; Z98.84 Bariatric surgery status

== ENCOUNTER 2021-10-23 08:55 | Inpatient (IN) ==
[2021-10-23] MEDS ORDERED: MoRPHine SULFATE 10 MG/ML CARP/VIAL IM STA (10:09)
[2021-10-23] MEDS ORDERED: KETOROLAC TROMETHAMINE 60 MG/2 ML VIAL IM STA (10:09)
[2021-10-23] MEDS ORDERED: ONDANSETRON 4 MG OD TAB PO STA (10:09)
[2021-10-23] MEDS ORDERED: dexAMETHasone**PF** 10 MG/ML VIAL IM ONE (10:30)
--- NOTE | 2021-10-23 10:39 | Emergency Department Note ---
History of Present Illness General Chief complaint: Back Injury/Pain Stated complaint: BACK PAIN Time Seen by Provider: 10/23/21 09:12 History of Present Illness Maximum Pain Intensity: 8 51-year-old female who presents to emergency department for evaluation of the lower back pain radiating down the right leg to her foot. The patient reports prior history of chronic back pain and prior surgery. The patient reports that she was seen this past summer by Dr. Fabian, who performed an MRI, and told her that she may need additional surgery. The patient reports that over the past few weeks, the pain has progressively worsened. She has previously been treated by her PCP with gabapentin, however weaned herself down significantly because it caused weight gain. The patient has had a prior history of gastric bypass. The patient reports that she also has been prescribed tramadol by her PCP, but that is no longer helping with her pain. When asked if the patient has been recently treated with corticosteroids, she denies, however reports that it makes her very irritable. When asked the patient has had some incontinence, she reports that she has. She denies any saddle anesthesias or foot drop. The patient is requesting that I consult Dr. Fabian regarding her current symptoms. The patient denies any new injuries since her last MRI, and rates her discomfort an 8 out of 10. Home Medications Medication Instructions Recorded Confirmed Type ascorbic acid (vitamin C) 500 mg 500 mg PO DAILY 11/25/18 10/23/21 History tablet (Vitamin C) acetaminophen 325 mg tablet 325 - 650 mg PO Q4 PRN 02/11/19 10/23/21 History cyanocobalamin (vitamin B-12) 1,000 mcg IM .COMPLEX 05/14/19 10/23/21 History 1,000 mcg/mL injection kit TENS units #1 ea 10/09/19 06/27/21 Rx albuterol sulfate 90 mcg/actuation 2 puff INHALATION Q6H PRN #6.7 gm 12/17/19 10/23/21 Rx aerosol inhaler (ProAir HFA) menthol 0.44 %-zinc oxide 20.6 % 1 appln TOP QID PRN #113 gm 12/24/19 10/23/21 Rx topical ointment (Calmoseptine) silver sulfadiazine 1 % topical 1 appln TOP BID PRN #20 gm 12/24/19 10/23/21 Rx cream (Silvadene) levothyroxine 75 mcg capsule 75 mcg PO DAILY #30 cap 05/02/20 10/23/21 Rx ketoconazole 2 % topical cream See Rx Instructions TOP DAILY PRN 02/08/21 10/23/21 History nystatin 100,000 unit/gram topical 1 applic TOPICAL BID PRN 02/08/21 10/23/21 History cream triamcinolone acetonide 0.1 % 1 applic TOPICAL BID PRN 02/08/21 10/23/21 History topical cream nystatin-triamcinolone 100,000 1 applic TOPICAL BID #30 g 02/13/21 10/23/21 Rx unit/gram-0.1 % topical ointment pregabalin 75 mg capsule 150 mg PO BID #360 cap 02/23/21 10/23/21 Rx ketorolac 10 mg tablet 10 mg PO TID PRN 5 Days #20 tab 06/15/21 10/23/21 Rx ondansetron 4 mg disintegrating 4 mg PO Q8H PRN #10 tab 09/14/21 10/23/21 Rx tablet eletriptan 20 mg tablet (Relpax) See Rx Instructions PO .COMPLEX 09/18/21 10/23/21 Rx #18 tab omeprazole 40 mg capsule,delayed 40 mg PO BID #180 cap 09/28/21 10/23/21 Rx release topiramate 100 mg tablet 100 mg PO HS #90 tab 09/28/21 10/23/21 Rx trazodone 100 mg tablet 100 mg PO .COMPLEX #90 tab 09/28/21 10/23/21 Rx clonidine HCl 0.1 mg tablet 0.1 mg PO .COMPLEX #90 tab 10/04/21 10/23/21 Rx tramadol 50 mg tablet 50 mg PO TID PRN #90 tab 10/17/21 10/23/21 Rx lactobacillus combination no.4 3 0 mmu cells PO DAILY 10/23/21 10/23/21 History billion cell capsule (Probiotic) pediatric multivitamin no.76 1 tab PO DAILY 10/23/21 10/23/21 History (Flintstones Complete) potassium 99 mg tablet 150 mg PO DAILY 10/23/21 10/23/21 History Allergies Allergy/AdvReac Type Severity Reaction Status Date / Time Penicillins Allergy Intermediate HIVES/SEIZU Verified 10/23/21 11:13 RES Sulfa (Sulfonamide Allergy Intermediate HIVES/SEIZU Verified 10/23/21 11:13 Antibiotics) RES latex Allergy Mild rash Verified 10/23/21 11:13 metformin AdvReac Mild GI upset Verified 10/23/21 11:13 even with ER Past Med/Surg History Medical History Anticoagulated on Coumadin Arthritis Asthma Chicken pox Chronic diarrhea Depression Diabetes mellitus Fibromyalgia GERD (gastroesophageal reflux disease) Gram-negative bacteremia Gram-negative bacterial cellulitis Gram-negative bacterial infection Hepatic abscess History of blood clots History of blood transfusion History of Coumadin therapy History of food allergy Hypokalemia Hypomagnesemia Hypothyroidism Insomnia Iron deficiency LGSIL on Pap smear of cervix Lumbar spinal stenosis Migraine, unspecified, not intractable, without status migrainosus MRSA infection Neurodermatitis Ocular hypertension, unspecified eye Ovarian cyst PCO (polycystic ovaries) Pernicious anemia Tinea corporis Urinary incontinence Surgical History H/O gastric bypass History of cholecystectomy History of colonoscopy History of gastric bypass History of gastric surgery History of repair of rotator cuff History of surgery of liver S/P cholecystectomy S/P endometrial ablation Status post gastric bypass for obesity (~2002) Status post hysteroscopic ablation of endometrium Family History Other Anemia Premature labor Twin Denies family history of Ovarian cancer Myocardial infarction Breast cancer Colorectal cancer Social History Smoking Status: Never smoker Second Hand Exposure: No; Hx Alcohol Use: Yes Alcohol type: beer Hx Substance Use: No Preferred Language: Burmese Communication Ability: Effective State Appellate Clerk Required: No Beliefs That Will Affect Care: None marital status: Current Living Situation: Spouse current occupational status: disabled Feels Safe at Home: Yes caffeine: No Dental Care, Regularly: Yes Physical Activity Frequency: 1-2 Times per Week Physical Activity Frequency Comment: walking/cleaning Sunscreen Use: No Assistive Devices: None Review of Systems 10 system review was performed and was negative except for pertinent positives and negatives as indicated in history of present illness Physical Exam Vital Signs Vital Signs - 24 hr 10/23/21 09:00 10/23/21 12:15 Temperature 36.5 C Temperature Source Oral Pulse Rate 75 Pulse Rate [Right Finger] 60 Pulse Rhythm [Right Finger] Regular Respiratory Rate 18 16 Respiratory Effort / Characteristics Non-Labored Respiratory Depth Normal Respiratory Pattern Regular Blood Pressure 119/74 Blood Pressure [Right Arm] 125/64 Blood Pressure Mean 89 Blood Pressure Mean [Right Arm] 84 Blood Pressure Position [Right Arm] Lying Pulse Oximetry 99 97 Oxygen Delivery Method Room Air Room Air Sepsis Recent Fever Within 48 Hours No Sepsis New/Unexplained Change in Mental Status No Sepsis Action Taken by Nursing No Action Required CONSTITUTIONAL: Healthy and well nourished. Alert and oriented X 3. Patient appears in mild discomfort. HEENT: No scleral icterus or conjunctival injection. NECK: Full active range of motion without discomfort. LYMPHATICS: No cervical chain adenopathy. RESPIRATORY: Clear to auscultation bilaterally with no wheezing, crackles, rhonchi or stridor. CARDIOVASCULAR: Regular rate and rhythm with no murmurs, rubs or gallops. GASTROINTESTINAL: Bowel sounds present in all quadrants. Soft and nontender to palpation. MUSCULOSKELETAL: Examination shows generalized tenderness to palpation through the lower back region. Negative logroll of the hips. Positive straight leg raise on the right with positive crossover exam. Ankle plantar/dorsiflexion strength is 4 out of 5 and symmetric bilaterally. Patient does have weak hip flexors. The pulses are intact. INTEGUMENTARY: No rash or other significant dermatologic conditions noted. HEMATOLOGIC: No ecchymosis or petechiae. PSYCHIATRIC: Positive affect. NEUROLOGIC: Lower extremity deep tendon reflexes are 2+ and symmetric bilaterally. Course Course Patient history and physical exam were performed. Nurses notes were reviewed. Vital signs were reviewed and were normal. The patient was administered IM morphine, Toradol and Decadron, along with Zofran ODT 4 mg while awaiting a return phone call from Dr. Fabian. The case was further discussed with Dr. Fabian, who reviewed the patient's MRI studies, and physical exam findings today, and has recommended admission for surgical intervention. This was further discussed with the patient, who was in agreement. Dr. Fabian has requested that I order a noncontrast MRI of the lumbar spine. He indicated that he would add additional orders for the patient. An additional COVID-19 RNA test was performed in the emergency department, and was negative. Urine was also negative. The patient refused any further analgesics while under my care. Please see Dr. Fabian's dictation for further treatment and final disposition. Administered Medications Discontinued Medications Dexamethasone Sodium Phosphate (DexamethasonePf 10 Mg/Ml Vial) 10 mg IM NOW ONE Stop: 10/23/21 10:31 Last Admin: 10/23/21 10:55 Dose: 10 mg Documented by: [id number] Lorazepam (Ativan) 1 mg in 2 mls @ 2 mls/min IV NOW STA Stop: 10/23/21 13:59 Last Admin: 10/23/21 14:44 Dose: 2 mls/min Documented by: [id number] Ketorolac Tromethamine (Ketorolac Tromethamine 60 Mg/2 Ml Vial) 30 mg IM NOW STA Stop: 10/23/21 10:10 Last Admin: 10/23/21 10:54 Dose: 30 mg Documented by: [id number] Morphine Sulfate (Morphine Sulfate 10 Mg/Ml Carp/Vial) 6 mg IM NOW STA Stop: 10/23/21 10:10 Last Admin: 10/23/21 10:55 Dose: 6 mg Documented by: [id number] Ondansetron HCl (Ondansetron 4 Mg Od Tab) 4 mg PO NOW STA Stop: 10/23/21 10:10 Last Admin: 10/23/21 10:54 Dose: 4 mg Documented by: [id number] Medical Decision Making Medical Records Attestation: I reviewed the patient's medical records. Home Medications Current Medication List: was personally reviewed by me Laboratory Data Attestation: I reviewed the patient's lab results. Lab Results 10/23/21 Range/Units 12:43 SARS-CoV-2, RNA, NAAT NEGATIVE (NEGATIVE) Imaging Data Attestation: I personally reviewed and interpreted this imaging study as follows: My Impression: Noncontrast MRI of the lumbar spine, when compared to her prior MRI of 04/06/2021, shows Prescription Drug Monitoring [place] Drug Monitoring Program reviewed and findings noted below (Patient receives monthly prescriptions for tramadol from her PCP) Blood Pressure Blood Pressure Findings: Normal blood pressure MDM Narrative Patient presents emergency department with complaint of lower back pain and right lumbar radiculitis. The patient reports that she has been having incontine nce. Her physical exam shows notable disconditioning, but does have weak flexor effort. She has no other concerning neurologic findings to suggest cauda equina syndrome. Patient denies any recent trauma or illness to suggest spinal abscess or hematoma. Impression & Plan Intractable neuropathic pain of lumbosacral origin, Right lumbar radiculitis Discharge Plan Visit Data Chief Complaint: Back Injury/Pain Stated Complaint: BACK PAIN ED Provider: Scout Wall ED Midlevel Provider: Matt Young Discharge Problem: Intractable neuropathic pain of lumbosacral origin, Right lumbar radiculitis Forms Stand Alone Forms: [facility] [employer] Prescriptions Prescriptions: No Action (DME) TENS units device See Rx Instructions .ROUTE .MEDSUPPLY Qty: 1 RF: 0 silver sulfadiazine [Silvadene] 1 % cream 1 appln TOP BID PRN (Reason: wound healing) Qty: 20 RF: 1 levothyroxine 75 mcg capsule 75 mcg PO DAILY Qty: 30 RF: 5 nystatin-triamcinolone 100,000-0.1 unit/gram-% ointment 1 applic topical BID Qty: 30 RF: 0 pregabalin 75 mg capsule 150 mg PO BID Qty: 360 RF: 1 ketorolac 10 mg tablet 10 mg PO TID PRN (Reason: pain) 5 Days Qty: 20 RF: 0 ondansetron 4 mg tablet,disintegrating 4 mg PO Q8H PRN (Reason: nausea and vomiting) Qty: 10 RF: 0 eletriptan [Relpax] 20 mg tablet See Rx Instructions PO .COMPLEX Qty: 18 RF: 3 omeprazole 40 mg capsule,delayed release(DR/EC) 40 mg PO BID Qty: 180 RF: 3 topiramate 100 mg tablet 100 mg PO HS Qty: 90 RF: 3 trazodone 100 mg tablet 100 mg PO .COMPLEX Qty: 90 RF: 3 clonidine HCl 0.1 mg tablet 0.1 mg PO .COMPLEX Qty: 90 RF: 3 tramadol 50 mg tablet 50 mg PO TID PRN (Reason: pain) Qty: 90 RF: 0 albuterol sulfate [ProAir HFA] 90 mcg/actuation HFA aerosol inhaler 2 puff INHALATION Q6H PRN (Reason: Shortness Of Breath Or Wheezing) Qty: 6.7 RF: 0 cyanocobalamin (vitamin B-12) 1,000 mcg/mL kit 1,000 mcg IM .COMPLEX RF: 0 Calmoseptine 0.44-20.6 % ointment 1 appln TOP QID PRN (Reason: skin irritation) Qty: 113 RF: 1 ascorbic acid (vitamin C) [Vitamin C] 500 mg Tablet 500 mg PO DAILY RF: 0 acetaminophen 325 mg Tablet 325 - 650 mg PO Q4 PRN (Reason: Fever Or Pain) RF: 0 triamcinolone acetonide 0.1 % cream 1 applic topical BID PRN (Reason: Skin Irritation) RF: 0 nystatin 100,000 unit/gram cream 1 applic topical BID PRN (Reason: NEEDED) RF: 0 ketoconazole 2 % cream See Rx Instructions TOP DAILY PRN (Reason: Rash) RF: 0 potassium 99 mg Tablet 150 mg PO DAILY RF: 0 Probiotic 3 billion cell Capsule 0 mmu cells PO DAILY RF: 0 Flintstones Complete Tablet,Chewable 1 tab PO DAILY RF: 0 Referrals Referrals: Chanelle Gerard CRNP [Primary Care Provider] -
[2021-10-23] MEDS ORDERED: LORazepam 1 MG/2 ML VIAL IV STA (13:58)
[2021-10-23 16:03] LABS: Basophils # (auto) 0.03 K/uL (0-0.2); Basophils % (auto) 0.9 %; Immature Granulocytes # (auto) 0.01 K/uL (0.00-0.02); Immature Granulocytes % (auto) 0.3 %; Lymphocytes # (auto) 0.68 K/uL (1.2-3.4); Lymphocytes % (auto) 20.7 %; Mean Corpuscular Hemoglobin 24.1 pg (25-34); Mean Corpuscular Volume 77.9 fL (80-100); Mean Platelet Volume 8.6 fL (7.4-10.4); Monocytes # (auto) 0.04 K/uL (0.11-0.59); Monocytes % (auto) 1.2 %; Neutrophils # (auto) 2.52 K/uL (1.4-6.5); Neutrophils % (auto) 76.9 %; Platelet Count 229 K/uL (130-400); RDW Coefficient of Variation 23.8 % (11.5-14.5); RDW Standard Deviation 66.8 fL (36.4-46.3); Red Blood Count 5.39 M/uL (4.2-5.4); White Blood Count 3.28 K/uL (4.8-10.8)
--- NOTE | 2021-10-23 16:05 | XRay Report ---
SINGLE VIEW CHEST CLINICAL HISTORY: Preoperative examination. Low back pain FINDINGS: An AP, portable, upright chest radiograph is compared to study dated 02/08/2021 and correlat ed with chest CT dated 02/11/2019. The cardiomediastinal silhouette is unremarkable. There is chronic elevation of the right hemidiaphragm and bibasilar atelectasis. No airspace consolidation typical for pneumonia or large pleural effusion is identified. No pneumothorax is seen. The bony thorax is gross ly intact. IMPRESSION: No active disease in the chest. ACT 112: Negative or not required by law. Electronically signed by: Jay Díaz M.D. 10/23/2021 4:04 PM
--- NOTE | 2021-10-23 16:06 | Magnetic Resonance Report ---
MRI OF THE LUMBAR SPINE WITHOUT IV CONTRAST: CLINICAL HISTORY: Acute on chronic low back pain. Right lower extremity radiculopathy. COMPARISON STUDY: MRI of the lumbar spine dated 04/06/2021. TECHNIQUE: MRI of the lumbar spine is performed utilizing various T1 and T2-weighted sequences in the axial and sagittal planes. IV contrast was not administered for this examination. The examination is compromised by motion artifact. FINDINGS: Lumbar spine: Vertebral body height and alignment are maintained throughout the lumbar spine. The tra nsverse and spinous processes are grossly intact. There is no evidence of spondylolysis. Chronic dege nerative endplate change is noted at L5-S1. There is only minimal endplate edema at this level. No de structive bony lesion is identified. Right hemilaminectomy change is noted at L5. Intervertebral discs: Degenerative disc desiccation is seen throughout the lumbar spine. There is sev ere loss of height at L5-S1. Only mild loss of height is seen at the remaining lumbar levels. Spinal cord: The visualized spinal cord is normal in morphology and signal intensity. The conus medul roberto terminates at the T12-L1 interspace. The nerve roots of the cauda equina are normal in morpholo gy. T12-L1: There is minimal disc bulge eccentric to the right. This is only seen on the sagittal sequenc es. No acquired compromise of the central canal is identified. L1-L2: Unremarkable. L2-L3: Unremarkable. L3-L4: Unremarkable. L4-L5: The central canal is clear. There is left lateral disc bulge, best seen on axial image #18. Th is contributes to left-sided subarticular stenosis and may abut the exiting left L4 nerve root. There is mild left-sided neural foraminal stenosis. L5-S1: There is posterior disc protrusion eccentric to the right. This contributes to right-sided sub articular stenosis, and likely impinges on the exiting right L5 and the transiting right S1 nerve jarek ts. This has not significantly changed as compared to 04/06/2021. There is no significant acquired com promise of the central canal. In conjunction with facet arthropathy, there is mild bilateral neural f oraminal stenosis. Sacrum: Imaged portions of the sacrum show normal marrow signal intensity. Soft tissues: There is fatty atrophy of the paraspinous musculature. The paraspinous soft tissues are otherwise normal in appearance. The visualized retroperitoneal structures are grossly unremarkable, but incompletely assessed. IMPRESSION: 1. No significant change as compared to 04/06/2021. 2. Postoperative and spondylotic change as above. See discussion for detailed level by level analysis . 3. No destructive bony lesion is identified. Dictated: 10/23/2021 3:34 PM Transcribed: 10/23/2021 3:58 PM Maura [id number] [email or web address] Electronically signed by: Jay Díaz M.D. 10/23/2021 4:05 PM
[2021-10-23 16:08] LABS: Appearance Urine Clear (Clear); Bilirubin Urine Negative (Negative); Blood Urine Negative (Negative); Color Urine Yellow; Glucose Urine UA Negative (Negative); Ketones Urine Negative (Negative); Leukocyte Esterase Urine Negative (Negative); Nitrite Urine Negative (Negative); Protein Urine Negative (Negative); Urobilinogen Urine Negative (Negative); pH Urine 6.5 (4.5-7.5)
--- NOTE | 2021-10-23 16:10 | History & Physical Report ---
Date of Service October 23, 2021 Assessment & Plan (1) Lumbar disc herniation with radiculopathy: Plan: Assessment recurrent disc herniation L5-S1 with radiculopathy. Plan at this time and updated MRI was performed demonstrating continued recurrent disc herniation L5-S1 the right with encroachment the traversing S1 nerve roots. There is also a small disc herniation foraminal nature at L4-5 on the left. Patient continues to have severe pain decline in status and having failed extensive course of nonoperative care would like to consider surgical invention. Would require a lumbar decompression and fusion L5-S1. This allowed us to address the severe to space collapse foraminal disease and recurrent disc herniation effectively. Risk benefits pros cons alternatives were outlined in detail. Admission and Anticipated Discharge Date Admission Date: October 23, 2021 History of Present Illness Chief Complaint: Back with right leg pain and weakness Primary Care Provider: JOSEFINA Maldonado This is a 51-year-old female known to us from having seen us in the office. She has complaints of worsening back and right leg pain markedly limiting her quality of life. She describes breakaway weakness and a recent episode of urinary incontinence. She is undergone extensive course of nonoperative care including multiple epidural injections without long-term relief. She is sensitive to medications and limits her self to tramadol for pain control. Allergies Allergy/AdvReac Type Severity Reaction Status Date / Time Penicillins Allergy Intermediate HIVES/SEIZU Verified 10/23/21 11:13 RES Sulfa (Sulfonamide Allergy Intermediate HIVES/SEIZU Verified 10/23/21 11:13 Antibiotics) RES latex Allergy Mild rash Verified 10/23/21 11:13 metformin AdvReac Mild GI upset Verified 10/23/21 11:13 even with ER Home Medications Medication Instructions Recorded Confirmed Type ascorbic acid (vitamin C) 500 mg 500 mg PO DAILY 11/25/18 10/23/21 History tablet (Vitamin C) acetaminophen 325 mg tablet 325 - 650 mg PO Q4 PRN 02/11/19 10/23/21 History cyanocobalamin (vitamin B-12) 1,000 mcg IM .COMPLEX 05/14/19 10/23/21 History 1,000 mcg/mL injection kit TENS units #1 ea 10/09/19 06/27/21 Rx albuterol sulfate 90 mcg/actuation 2 puff INHALATION Q6H PRN #6.7 gm 12/17/19 10/23/21 Rx aerosol inhaler (ProAir HFA) menthol 0.44 %-zinc oxide 20.6 % 1 appln TOP QID PRN #113 gm 12/24/19 10/23/21 Rx topical ointment (Calmoseptine) silver sulfadiazine 1 % topical 1 appln TOP BID PRN #20 gm 12/24/19 10/23/21 Rx cream (Silvadene) levothyroxine 75 mcg capsule 75 mcg PO DAILY #30 cap 05/02/20 10/23/21 Rx ketoconazole 2 % topical cream See Rx Instructions TOP DAILY PRN 02/08/21 10/23/21 History nystatin 100,000 unit/gram topical 1 applic TOPICAL BID PRN 02/08/21 10/23/21 History cream triamcinolone acetonide 0.1 % 1 applic TOPICAL BID PRN 02/08/21 10/23/21 History topical cream nystatin-triamcinolone 100,000 1 applic TOPICAL BID #30 g 02/13/21 10/23/21 Rx unit/gram-0.1 % topical ointment pregabalin 75 mg capsule 150 mg PO BID #360 cap 02/23/21 10/23/21 Rx ketorolac 10 mg tablet 10 mg PO TID PRN 5 Days #20 tab 06/15/21 10/23/21 Rx ondansetron 4 mg disintegrating 4 mg PO Q8H PRN #10 tab 09/14/21 10/23/21 Rx tablet eletriptan 20 mg tablet (Relpax) See Rx Instructions PO .COMPLEX 09/18/21 10/23/21 Rx #18 tab omeprazole 40 mg capsule,delayed 40 mg PO BID #180 cap 09/28/21 10/23/21 Rx release topiramate 100 mg tablet 100 mg PO HS #90 tab 09/28/21 10/23/21 Rx trazodone 100 mg tablet 100 mg PO .COMPLEX #90 tab 09/28/21 10/23/21 Rx clonidine HCl 0.1 mg tablet 0.1 mg PO .COMPLEX #90 tab 10/04/21 10/23/21 Rx tramadol 50 mg tablet 50 mg PO TID PRN #90 tab 10/17/21 10/23/21 Rx lactobacillus combination no.4 3 0 mmu cells PO DAILY 10/23/21 10/23/21 History billion cell capsule (Probiotic) pediatric multivitamin no.76 1 tab PO DAILY 10/23/21 10/23/21 History (Flintstones Complete) potassium 99 mg tablet 150 mg PO DAILY 10/23/21 10/23/21 History Past Med/Surg History Medical History Anticoagulated on Coumadin Arthritis Asthma Chicken pox Chronic diarrhea Depression Diabetes mellitus Fibromyalgia GERD (gastroesophageal reflux disease) Gram-negative bacteremia Gram-negative bacterial cellulitis Gram-negative bacterial infection Hepatic abscess History of blood clots History of blood transfusion History of Coumadin therapy History of food allergy Hypokalemia Hypomagnesemia Hypothyroidism Insomnia Iron deficiency LGSIL on Pap smear of cervix Lumbar spinal stenosis Migraine, unspecified, not intractable, without status migrainosus MRSA infection Neurodermatitis Ocular hypertension, unspecified eye Ovarian cyst PCO (polycystic ovaries) Pernicious anemia Tinea corporis Urinary incontinence Surgical History H/O gastric bypass History of cholecystectomy History of colonoscopy History of gastric bypass History of gastric surgery History of repair of rotator cuff History of surgery of liver S/P cholecystectomy S/P endometrial ablation Status post gastric bypass for obesity (~2002) Status post hysteroscopic ablation of endometrium Family History Other Anemia Premature labor Twin Denies family history of Ovarian cancer Myocardial infarction Breast cancer Colorectal cancer Social History Smoking Status: Never smoker Second Hand Exposure: No; Hx Alcohol Use: Yes Alcohol type: beer Hx Substance Use: No Preferred Language: Estonian Communication Ability: Effective 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 She does demonstrate breakaway weakness to testing the right dorsiflexion extensor hallucis longus compared to 5 5 on the left. She has full sensation diminished reflexes. Results & Data ([facility]) Vital Signs (Past 12 Hours) Vital Signs Temp Pulse Pulse Resp BP BP Pulse Ox 10/23/21 15:52 65 16 127/67 95 10/23/21 14:51 56 L 16 127/67 97 10/23/21 12:15 60 16 125/64 97 10/23/21 09:00 36.5 C 75 18 119/74 99 Code Status & VTE Plan VTE Prophylaxis Plan VTE Prophylaxis will be ordered: Yes
[2021-10-23 16:21] LABS: Albumin Level 3.6 gm/dl (3.4-5.0); BUN Creatinine Ratio 18.3 (10-20); Calcium 9.3 mg/dl (8.5-10.1); Est GFR (African American) 78.9 ml/min; Est GFR (Non-African American) 68.1 ml/min; Potassium 3.8 mmol/L (3.5-5.1)
[2021-10-23 16:24] LABS: Albumin Globulin Ratio 0.9 (0.9-2); Bilirubin,Total 0.3 mg/dl (0.2-1); Total Protein 7.6 gm/dl (6.4-8.2)
--- NOTE | 2021-10-23 16:50 | Electrocardiogram Report ---
Test Reason : Blood Pressure : / mmHG Vent. Rate : 065 BPM Atrial Rate : 065 BPM P-R Int : 164 ms QRS Dur : 076 ms QT Int : 454 ms P-R-T Axes : 061 -05 021 degrees QTc Int : 472 ms Normal sinus rhythm Normal ECG When compared with ECG of 08-FEB-2021 21:45, No significant change was found Confirmed by Terrence Rowan ([id number]) on 10/23/2021 4:50:02 PM Referred By: REFERRED SELF Confirmed By:Ant Rowan
[2021-10-23 17:09] LABS: Anisocytosis Present
[2021-10-23] MEDS ORDERED: ONDANSETRON INJ 2 MG/ML 2 ML VIAL IV PRN ×2 (17:54)
[2021-10-23] MEDS ORDERED: NALOXONE HCL 0.4 MG/1 ML VIAL/CARP IV PRN (17:54)
[2021-10-23] MEDS ORDERED: HYDROmorphone INJ 0.5 MG/0.5 ML SYR IV PRN ×2 (17:54)
[2021-10-23] MEDS ORDERED: LORazepam 0.5 MG/1 ML VIAL IV PRN ×2 (17:54)
[2021-10-23] MEDS ORDERED: SILVER SULFADIAZINE 1% CR 50 GM JAR TOP PRN (17:54)
[2021-10-23] MEDS ORDERED: ACETAMINOPHEN 500 MG TAB PO PRN ×2 (17:54)
[2021-10-23] MEDS ORDERED: METOCLOPRAMIDE HCL INJ 5 MG/ML 2 ML VIAL IV PRN ×2 (17:54)
[2021-10-23] MEDS ORDERED: oxyCODONE HCL IR 5 MG TAB (IMMEDIATE RELEASE) PO PRN (17:54)
[2021-10-23] MEDS ORDERED: ACETAMINOPHEN 1,000 MG/100 ML VIAL IV PRN ×2 (17:54)
[2021-10-23] MEDS ORDERED: hydrOXYzine HCl 25 MG TAB PO PRN ×2 (17:54)
[2021-10-23] MEDS ORDERED: LACTATED RINGER'S 1,000 ML IV SCH (17:54)
[2021-10-23] MEDS ORDERED: ONDANSETRON HOME PACK 4MG OD TAB PO PRN (17:54)
[2021-10-23] MEDS ORDERED: HYDROmorphone INJ 1 MG/ML SYRINGE IV PRN ×2 (17:54)
[2021-10-23] MEDS ORDERED: MAGNESIUM HYDROXIDE SUSP 30 ML UDC PO PRN ×2 (17:54)
[2021-10-23] MEDS ORDERED: traMADol HCL 50 MG TABLET PO PRN ×2 (17:54)
[2021-10-23] MEDS ORDERED: LORazepam 0.5 MG TAB PO PRN ×2 (17:54)
[2021-10-23] MEDS ORDERED: diphenhydrAMINE Capsule 25 MG CAP PO PRN ×2 (17:54)
[2021-10-23] MEDS ORDERED: PROMETHAZINE HCL 12.5 MG in SODIUM CHLORIDE 0.9% 50 ML IV PRN (17:54)
[2021-10-23] MEDS ORDERED: TRIAMCINOLONE ACET 0.1% CR 15 GM TUBE TOP PRN (17:54)
[2021-10-23] MEDS ORDERED: ALUMINUM/MAGNESIUM SUSP 30 ML UDC PO PRN ×2 (17:54)
[2021-10-23] MEDS ORDERED: ONDANSETRON 4 MG OD TAB PO PRN ×2 (17:54)
[2021-10-23] MEDS: LACTATED RINGER'S 1,000 ML IV SCH (20:08)
[2021-10-23] MEDS: traZODone HCL 100 MG TAB PO SCH (22:25)
[2021-10-23] MEDS: cloNIDine HCL 0.1 MG TAB PO SCH (22:26)
[2021-10-23] MEDS: PREGABALIN 150 MG CAP PO SCH (22:26)
[2021-10-23] MEDS: oxyCODONE HCL IR 5 MG TAB (IMMEDIATE RELEASE) PO PRN (22:26)
[2021-10-23] MEDS: PANTOprazole 40 MG TAB PO SCH (22:26)
[2021-10-23] MEDS: TOPIRAMATE 100 MG TAB PO SCH (22:27)
[2021-10-24] MEDS ORDERED: CLINDAMYCIN 600 MG in DEXTROSE 5% 50 ML IV SCH (06:00)
--- NOTE | 2021-10-24 07:58 | Anesthesiology Consultation ---
Date of Service October 24, 2021 Assessment & Plan (1) Encounter for pre-operative examination: Chart Review Chart Review: Acceptable Risk for Surgery and Patient NOT seen in Pre Admission Testing Covid neg 10/23/21 Consults Requested none History Surgery Operation Date: 10/24/21 07:00 Proposed Procedures p L5-S1 Decompression Fusion - Harry Fabian DO Height/Weight Height: 5 ft 1 in Weight: 104 kg Allergies Allergy/AdvReac Type Severity Reaction Status Date / Time Penicillins Allergy Intermediate HIVES/SEIZU Verified 10/23/21 11:13 RES Sulfa (Sulfonamide Allergy Intermediate HIVES/SEIZU Verified 10/23/21 11:13 Antibiotics) RES latex Allergy Mild rash Verified 10/23/21 11:13 metformin AdvReac Mild GI upset Verified 10/23/21 11:13 even with ER Medications Home Medications Medication Instructions Recorded Confirmed Last Taken ascorbic acid (vitamin C) 500 mg 500 mg PO DAILY 11/25/18 10/23/21 10/22/21 tablet (Vitamin C) acetaminophen 325 mg tablet 325 - 650 mg PO Q4 PRN 02/11/19 10/23/21 Unknown cyanocobalamin (vitamin B-12) 1,000 mcg IM .COMPLEX 05/14/19 10/23/21 10/22/21 1,000 mcg/mL injection kit TENS units #1 ea 10/09/19 06/27/21 10/22/21 albuterol sulfate 90 mcg/actuation 2 puff INHALATION Q6H PRN #6.7 gm 12/17/19 10/23/21 Unknown aerosol inhaler (ProAir HFA) menthol 0.44 %-zinc oxide 20.6 % 1 appln TOP QID PRN #113 gm 12/24/19 10/23/21 10/22/21 topical ointment (Calmoseptine) silver sulfadiazine 1 % topical 1 appln TOP BID PRN #20 gm 12/24/19 10/23/21 Unknown cream (Silvadene) levothyroxine 75 mcg capsule 75 mcg PO DAILY #30 cap 05/02/20 10/23/21 10/22/21 ketoconazole 2 % topical cream See Rx Instructions TOP DAILY PRN 02/08/21 10/23/21 10/22/21 nystatin 100,000 unit/gram topical 1 applic TOPICAL BID PRN 02/08/21 10/23/21 10/22/21 cream triamcinolone acetonide 0.1 % 1 applic TOPICAL BID PRN 02/08/21 10/23/21 10/22/21 topical cream nystatin-triamcinolone 100,000 1 applic TOPICAL BID #30 g 02/13/21 10/23/21 10/22/21 unit/gram-0.1 % topical ointment pregabalin 75 mg capsule 150 mg PO BID #360 cap 02/23/21 10/23/21 10/23/21 ketorolac 10 mg tablet 10 mg PO TID PRN 5 Days #20 tab 06/15/21 10/23/21 Unknown ondansetron 4 mg disintegrating 4 mg PO Q8H PRN #10 tab 09/14/21 10/23/21 10/09/21 tablet eletriptan 20 mg tablet (Relpax) See Rx Instructions PO .COMPLEX 09/18/21 Unknown #18 tab omeprazole 40 mg capsule,delayed 40 mg PO BID #180 cap 09/28/21 10/23/21 10/23/21 release topiramate 100 mg tablet 100 mg PO HS #90 tab 09/28/21 10/23/21 10/22/21 trazodone 100 mg tablet 100 mg PO .COMPLEX #90 tab 09/28/21 10/23/21 10/22/21 clonidine HCl 0.1 mg tablet 0.1 mg PO .COMPLEX #90 tab 10/04/21 10/23/21 10/22/21 tramadol 50 mg tablet 50 mg PO TID PRN #90 tab 10/17/21 10/23/21 10/22/21 lactobacillus combination no.4 3 0 mmu cells PO DAILY 10/23/21 10/23/21 10/23/21 billion cell capsule (Probiotic) pediatric multivitamin no.76 1 tab PO DAILY 10/23/21 10/23/21 10/22/21 (Flintstones Complete) potassium 99 mg tablet 150 mg PO DAILY 10/23/21 10/23/21 10/23/21 Active Medications Generic Name Dose Route Start Last Admin Trade Name Freq PRN Reason Stop Dose Admin Acetaminophen 1,000 mg 10/23/21 17:54 10/23/21 22:26 Acetaminophen 500 Mg Tab PO 11/22/21 17:53 1,000 mg Q8H PRN Administration MILD Pain Scale 1,2,3 & Pre PT Clonidine HCl 0.15 mg 10/23/21 21:00 10/23/21 22:26 Clonidine Hcl 0.1 Mg Tab PO 11/22/21 20:59 0.15 mg HS FLAVIO Administration Hydroxyzine HCl 25 mg 10/23/21 17:54 10/23/21 22:26 Hydroxyzine Hcl 25 Mg Tab PO 11/22/21 17:53 25 mg Q8H PRN Administration Anxiety Lactated Ringer's 1,000 mls @ 75 mls/hr 10/23/21 17:54 10/23/21 20:08 Lr IV 11/22/21 17:53 75 mls/hr .[id number] FLAVIO Administration Magnesium Hydroxide 30 ml 10/23/21 17:54 10/23/21 20:06 Magnesium Hydroxide Susp 30 Ml Udc PO 11/22/21 17:53 30 ml Q24H PRN Administration Constipation Oxycodone HCl 5 - 10 mg 10/23/21 17:54 10/23/21 22:26 Oxycodone Hcl Ir 5 Mg Tab (Immediate Release) PO 11/06/21 17:53 5 mg Q4H PRN Administration mod to severe pain Pantoprazole Sodium 40 mg 10/23/21 21:00 10/23/21 22:26 Pantoprazole 40 Mg Tab PO 11/22/21 20:59 40 mg BID FLAVIO Administration Pregabalin 150 mg 10/23/21 21:00 10/23/21 22:26 Pregabalin 150 Mg Cap PO 11/22/21 20:59 150 mg BID FLAVIO Administration Topiramate 100 mg 10/23/21 21:00 10/23/21 22:27 Topiramate 100 Mg Tab PO 11/22/21 20:59 100 mg HS FLAVIO Administration Trazodone HCl 100 mg 10/23/21 21:00 10/23/21 22:25 Trazodone Hcl 100 Mg Tab PO 11/22/21 20:59 100 mg HS FLAVIO Administration Past Medical History Medical History (Updated 10/24/21 @ 07:56 by Braxton Lisa MD) Anticoagulated on Coumadin Arthritis Asthma Chicken pox Chronic diarrhea Depression Diabetes mellitus Encounter for pre-operative examination Fibromyalgia GERD (gastroesophageal reflux disease) Gram-negative bacteremia Gram-negative bacterial cellulitis Gram-negative bacterial infection Hepatic abscess History of blood clots History of blood transfusion History of Coumadin therapy History of food allergy Hypokalemia Hypomagnesemia Hypothyroidism Insomnia Iron deficiency LGSIL on Pap smear of cervix Lumbar spinal stenosis Migraine, unspecified, not intractable, without status migrainosus Morbid obesity MRSA infection Neurodermatitis Ocular hypertension, unspecified eye Ovarian cyst PCO (polycystic ovaries) Pernicious anemia Tinea corporis Urinary incontinence Past Family History Family History Other Anemia Premature labor Twin Denies family history of Ovarian cancer Myocardial infarction Breast cancer Colorectal cancer Past Surgical History Surgical History H/O gastric bypass History of cholecystectomy History of colonoscopy History of gastric bypass History of gastric surgery History of repair of rotator cuff History of surgery of liver S/P cholecystectomy S/P endometrial ablation Status post gastric bypass for obesity (~2002) Status post hysteroscopic ablation of endometrium Social History Smoking Status: Former smoker Do You Dip or Chew Tobacco: No Hx Alcohol Use: Yes Alcohol type: beer alcohol intake frequency: holidays/special occasions only Hx Substance Use: No substance use type: does not use Physical Exam Vital Signs Last Vital Signs Temp 36.8 C 10/24/21 05:05 Pulse 62 10/24/21 05:05 Resp 16 10/24/21 05:05 BP 115/60 10/24/21 05:05 Pulse Ox 93 10/24/21 05:05 Testing Laboratory Results 10/23/21 15:54 10/23/21 15:54 Urine Color Yellow 10/23/21 15:54 Urine Appearance Clear (Clear) 10/23/21 15:54 Urine pH 6.5 (4.5-7.5) 10/23/21 15:54 Ur Specific [place] 1.010 (1.000-1.030) 10/23/21 15:54 Urine Protein Negative (Negative) 10/23/21 15:54 Urine Glucose (UA) Negative (Negative) 10/23/21 15:54 Urine Ketones Negative (Negative) 10/23/21 15:54 Urine Nitrite Negative (Negative) 10/23/21 15:54 Ur Leukocyte Esterase Negative (Negative) 10/23/21 15:54 10/24/21 06:36 POC Ur Test NEG Electrocardiogram Date: 10/23/21 DICTATED BY:Terrence Rowan MD Test Reason : Blood Pressure : / mmHG Vent. Rate : 065 BPM Atrial Rate : 065 BPM P-R Int : 164 ms QRS Dur : 076 ms QT Int : 454 ms P-R-T Axes : 061 -05 021 degrees QTc Int : 472 ms Normal sinus rhythm Normal ECG When compared with ECG of 08-FEB-2021 21:45, No significant change was found Confirmed by Terrence Rowan ([id number]) on 10/23/2021 4:50:02 PM Chest X-Ray Date: 10/23/21 SINGLE VIEW CHEST CLINICAL HISTORY: Preoperative examination. Low back pain FINDINGS: An AP, portable, upright chest radiograph is compared to study dated 02/08/2021 and correlated with chest CT dated 02/11/2019. The cardiomediastinal silhouette is unremarkable. There is chronic elevation of the right hemidiaphragm and bibasilar atelectasis. No airspace consolidation typical for pneumonia or large pleural effusion is identified. No pneumothorax is seen. The bony thorax is grossly intact. IMPRESSION: No active disease in the chest.
[2021-10-24] MEDS: PREGABALIN 150 MG CAP PO SCH ×2 (08:10→22:30)
[2021-10-24] MEDS: ASCORBIC ACID 500 MG TAB PO SCH (08:10)
[2021-10-24] MEDS: PANTOprazole 40 MG TAB PO SCH ×2 (08:10→22:30)
[2021-10-24] MEDS: LEVOTHYROXINE SODIUM 75 MCG TABLET PO SCH (08:10)
[2021-10-24] MEDS: oxyCODONE HCL IR 5 MG TAB (IMMEDIATE RELEASE) PO PRN ×2 (08:11→22:31)
[2021-10-24] MEDS ORDERED: NON-FORMULARY MEDICATION (Potassium 99 mg Tablet) PO SCH (09:00)
[2021-10-24] MEDS: LACTATED RINGER'S 1,000 ML IV SCH ×2 (12:54→22:32)
--- NOTE | 2021-10-24 16:40 | Orthopedic Progress Note ---
Date of Service October 24, 2021 Assessment & Plan (1) Lumbar disc herniation with radiculopathy: Plan: At this time we are awaiting approval for a lumbar decompression and fusion L5- S1. This also be to address the recurrent disc herniation stabilize lumbar spine and help with her radiculopathy. She was made n.p.o. after midnight. Admission and Anticipated Discharge Date Admission Date: October 24, 2021 Subjective Patient continues to describe significant right leg pain down to her foot. Markedly exacerbated with activity. She does have some left anterior thigh pain. She is comfortable in bed at this time. Physical Exam Physical Exam: Patient is alert and oriented comfortable at this time. No other changes noted. Results & Data ([facility]) Vital Signs (Past 12 Hours) Vital Signs Temp Pulse Resp BP Pulse Ox 10/24/21 05:05 36.8 C 62 16 115/60 93
--- NOTE | 2021-10-24 16:55 | Hospitalist Consultation ---
Date of Consultation October 24, 2021 Assessment & Plan (1) Diabetes mellitus: Patient is a 51-year-old female with a past medical history of morbid obesity, depression, fibromyalgia, GERD, diabetes, iron deficiency anemia, B12 deficiency, vitamin D deficiency, hypothyroidism, generalized anxiety disorder, and essential hypertension who presented to the ER 10/23/2021 and who was admitted for L5-S1 recurrent disc herniation with radiculopathy by orthospine and in anticipation of lumbar decompression and fusion L5-S1. Medicine has been consulted for medical management of after mentioned conditions. Lumbar herniation with radicular symptoms Admitted by orthospine, anticipate decompression and fusion L5-S1 and primary management by primary team No bladder incontinence/retention, neurovascularly intact at time of assessment Analgesia per primary team Diabetes Last A1c 6.2, repeat pending - Diet controlled <7% previously BSG 149 on admission Glucose checks AC/at bedtime Creatinine normal BMP daily Goal BSG [id number], if persistently above 140 may add very conservative SSI (2) Hypertension: Hypertension Continue home clonidine 0.15 mg nightly (3) Hypothyroidism: Hypothyroidism Continue Synthroid 75 mcg p.o. daily TSH normal 01/2021, repeat pending (4) Depression: Anxiety/depression Trazodone 100 mg p.o. nightly as needed for sleep - Clonidine above with secondary benefit on mood per pt (5) Iron deficiency anemia: Anemia with iron deficiency and B12 deficiency Hemoglobin 13.0, within normal limits on admission MCV slightly microcytic 77.9 with very high increased RDW 23.8% question mixed microcytic/macrocytic etiology Transferrin saturation 3% 1 month prior B12, folate levels normal - Does not tolerate oral iron per t. Recently completed IV iron infusion last week (has had 3x total) at the [facility] (6) GERD (gastroesophageal reflux disease): GERD Omeprazole 40 mg p.o. twice daily converted to Protonix while admitted (7) Fibromyalgia: Fibromyalgia Continue pregabalin 150 mg p.o. twice daily (8) Morbid obesity: Morbid obesityBMI 43.3 Optimize morbidities as above Recommend outpatient follow-up with continued weight loss goals (9) Dental caries: - All teeth extracted 1 mo ago, pending denture fitting - Well healed - Completed oupt abx course post removal DVT prophylaxis: SCDs, pharmacal PPx deferred in anticipation of surgery Diet: Per primary surgical team Disposition: Medical/surgical CODE STATUS: Full code History of Present Illness Reason for Consultation: Medical Management of Comorbidities Requesting Physician: Harry Fabian DO Attending Physician: Harry Fabian DO History of Present Illness Patient is a 51-year-old female with a past medical history of morbid obesity, depression, fibromyalgia, GERD, diabetes, iron deficiency anemia, B12 deficiency, vitamin D deficiency, hypothyroidism, generalized anxiety disorder, and essential hypertension who presented to the ER 10/23/2021 and who was admitted for L5-S1 recurrent disc herniation with radiculopathy by orthospine and in anticipation of lumbar decompression and fusion L5-S1. Medicine has been consulted for medical management of after mentioned conditions. Feels well today other than her back Reports blood pressure and DM are well controlled. Clonidine 'works wonders for my blood pressure and mind.' No other antihypertensives. DM at goal without pharmacotherapy. Denies fever, chills, sweats, shortness of breath, difficulty breathing, nausea, vomiting, diarrhea. Has not had a bowel movement today Endorses shooting pain down into her right foot. Endorses pain in her mid to low back. Denies urinary symptoms, denies urinary retention/incontinence Medical History: Reviewed Medications: Reviewed Surgical History: Reviewed Allergies: Reviewed. Hives to penicillin and sulfa. Social History: Former tobacco use, intermittent alcohol use socially, no recreational drug use. Code Status: Full code Allergies Allergy/AdvReac Type Severity Reaction Status Date / Time Penicillins Allergy Intermediate HIVES/SEIZU Verified 10/23/21 11:13 RES Sulfa (Sulfonamide Allergy Intermediate HIVES/SEIZU Verified 10/23/21 11:13 Antibiotics) RES latex Allergy Mild rash Verified 10/23/21 11:13 metformin AdvReac Mild GI upset Verified 10/23/21 11:13 even with ER Home Medications Medication Instructions Recorded Confirmed Type ascorbic acid (vitamin C) 500 mg 500 mg PO DAILY 11/25/18 10/23/21 History tablet (Vitamin C) acetaminophen 325 mg tablet 325 - 650 mg PO Q4 PRN 02/11/19 10/23/21 History cyanocobalamin (vitamin B-12) 1,000 mcg IM .COMPLEX 05/14/19 10/23/21 History 1,000 mcg/mL injection kit TENS units #1 ea 10/09/19 06/27/21 Rx albuterol sulfate 90 mcg/actuation 2 puff INHALATION Q6H PRN #6.7 gm 12/17/19 10/23/21 Rx aerosol inhaler (ProAir HFA) menthol 0.44 %-zinc oxide 20.6 % 1 appln TOP QID PRN #113 gm 12/24/19 10/23/21 Rx topical ointment (Calmoseptine) silver sulfadiazine 1 % topical 1 appln TOP BID PRN #20 gm 12/24/19 10/23/21 Rx cream (Silvadene) levothyroxine 75 mcg capsule 75 mcg PO DAILY #30 cap 05/02/20 10/23/21 Rx ketoconazole 2 % topical cream See Rx Instructions TOP DAILY PRN 02/08/21 10/23/21 History nystatin 100,000 unit/gram topical 1 applic TOPICAL BID PRN 02/08/21 10/23/21 History cream triamcinolone acetonide 0.1 % 1 applic TOPICAL BID PRN 02/08/21 10/23/21 History topical cream nystatin-triamcinolone 100,000 1 applic TOPICAL BID #30 g 02/13/21 10/23/21 Rx unit/gram-0.1 % topical ointment pregabalin 75 mg capsule 150 mg PO BID #360 cap 02/23/21 10/23/21 Rx ketorolac 10 mg tablet 10 mg PO TID PRN 5 Days #20 tab 06/15/21 10/23/21 Rx ondansetron 4 mg disintegrating 4 mg PO Q8H PRN #10 tab 09/14/21 10/23/21 Rx tablet eletriptan 20 mg tablet (Relpax) See Rx Instructions PO .COMPLEX 09/18/21 10/23/21 Rx #18 tab omeprazole 40 mg capsule,delayed 40 mg PO BID #180 cap 09/28/21 10/23/21 Rx release topiramate 100 mg tablet 100 mg PO HS #90 tab 09/28/21 10/23/21 Rx trazodone 100 mg tablet 100 mg PO .COMPLEX #90 tab 09/28/21 10/23/21 Rx clonidine HCl 0.1 mg tablet 0.1 mg PO .COMPLEX #90 tab 10/04/21 10/23/21 Rx tramadol 50 mg tablet 50 mg PO TID PRN #90 tab 10/17/21 10/23/21 Rx lactobacillus combination no.4 3 0 mmu cells PO DAILY 10/23/21 10/23/21 History billion cell capsule (Probiotic) pediatric multivitamin no.76 1 tab PO DAILY 10/23/21 10/23/21 History (Flintstones Complete) potassium 99 mg tablet 150 mg PO DAILY 10/23/21 10/23/21 History Patient History Medical History (Updated 10/24/21 @ 17:22 by Octavio Stone MD) Anticoagulated on Coumadin Arthritis Asthma Chicken pox Chronic diarrhea Depression Diabetes mellitus Encounter for pre-operative examination Fibromyalgia GERD (gastroesophageal reflux disease) Gram-negative bacteremia Gram-negative bacterial cellulitis Gram-negative bacterial infection Hepatic abscess History of blood clots History of blood transfusion History of Coumadin therapy History of food allergy Hypokalemia Hypomagnesemia Hypothyroidism Insomnia Iron deficiency LGSIL on Pap smear of cervix Lumbar spinal stenosis Migraine, unspecified, not intractable, without status migrainosus Morbid obesity MRSA infection Neurodermatitis Ocular hypertension, unspecified eye Ovarian cyst PCO (polycystic ovaries) Pernicious anemia Tinea corporis Urinary incontinence Surgical History H/O gastric bypass History of cholecystectomy History of colonoscopy History of gastric bypass History of gastric surgery History of repair of rotator cuff History of surgery of liver S/P cholecystectomy S/P endometrial ablation Status post gastric bypass for obesity (~2002) Status post hysteroscopic ablation of endometrium Family History Other Anemia Premature labor Twin Denies family history of Ovarian cancer Myocardial infarction Breast cancer Colorectal cancer Social History Smoking Status: Former smoker Second Hand Exposure: Yes; Do You Dip or Chew Tobacco: No; Tobacco Cessation Education Requested by Patient: No Hx Alcohol Use: Yes Alcohol type: beer Hx Substance Use: No Preferred Language: Ukrainian Communication Ability: Effective Overhauler Required: No Beliefs That Will Affect Care: None marital status: Current Living Situation: Family current occupational status: disabled How many Children do You have: 3 Other Information That Helps Us Care for You: No Feels Safe at Home: Yes Safety Concerns: Feels Safe At This Time caffeine: No Dental Care, Regularly: Yes Physical Activity Frequency: 1-2 Times per Week Physical Activity Frequency Comment: walking/cleaning Sunscreen Use: No Assistive Devices: Cane and Walker Review of Systems Review of Systems: All systems reviewed & are unremarkable except as noted in HPI & below Physical Exam Physical Exam: General: A&Ox3. NAD. Cooperative. Obese. HEENT: Atraumatic, normocephalic. Visual acuity and hearing grossly intact. Pulm: CTAB A&P. -wheezes, -rales, -rhonchi. Symmetrical chest rise. No increase work of breathing. No respiratory distress. Cardiac: RRR, -mrg. Radial pulses intact and symmetrical. Abdominal: Nontender, nondistended, soft. BS present. Extremities: Ankle dorsiflexion/plantar flexion 5/5 bilaterally, pulmonary physical therapist strength intact bilaterally, sensation to soft touch intact in hands and feet without asymmetry. Patient endorses shooting pain down her right leg with attempted hip flexion/movement. No calf asymmetry, no pedal edema. Results & Data Results & Data ([facility]) Vital Signs (Past 12 Hours) Vital Signs Temp Pulse Resp BP Pulse Ox 10/24/21 05:05 36.8 C 62 16 115/60 93 PG Care Time/CCT Total # of Minutes Spent Total Time Spent with Patient: Total time spent is greater than 50% in coordination of care (as documented) at patient's floor/unit and/or counseling patient: Coding Level of Care Code 86824 Inpt Consult Level 4 Diagnoses Diabetes mellitus E11.9 Hypertension I10 Hypothyroidism E03.9 Depression F32.9 Iron deficiency anemia D50.9 GERD (gastroesophageal reflux disease) K21.9 Fibromyalgia M79.7 Morbid obesity E66.01 Dental caries K02.9
[2021-10-24] MEDS: traZODone HCL 100 MG TAB PO SCH (22:30)
[2021-10-24] MEDS: cloNIDine HCL 0.1 MG TAB PO SCH (22:30)
[2021-10-24] MEDS: TOPIRAMATE 100 MG TAB PO SCH (22:30)
[2021-10-25] MEDS ORDERED: CLINDAMYCIN 600 MG/54 ML BAG IV SCH (06:00)
[2021-10-25] MEDS: LEVOTHYROXINE SODIUM 75 MCG TABLET PO SCH (06:03)
[2021-10-25 08:47] LABS: Estimated Average Glucose 108 mg/dl; Hemoglobin A1C 5.4 % (4.5-5.6)
[2021-10-25] MEDS ORDERED: LIDOCAINE 2% 2 ML VIAL/AMP(20MG/ML) INFIL ONE ×2 (09:32→12:03)
[2021-10-25] MEDS ORDERED: ONDANSETRON INJ 2 MG/ML 2 ML VIAL ONE (09:32)
[2021-10-25] MEDS ORDERED: MIDAZOLAM HCL 1 MG/ML 2ML VIAL ONE (09:32)
[2021-10-25] MEDS ORDERED: PROPOFOL IV EMULSION 10 MG/ML 20 ML VIAL IV ONE ×2 (09:32→12:03)
[2021-10-25] MEDS ORDERED: DEXAMETHASONE SOD INJ 4 MG/ML VIAL ONE (09:32)
[2021-10-25] MEDS ORDERED: HYDROmorphone INJ 2 MG/ML SYR/VIAL ONE (09:33)
[2021-10-25] MEDS ORDERED: fentaNYL citrate 100 MCG/2 ML VIAL ONE ×2 (09:33→11:27)
[2021-10-25] MEDS ORDERED: ONDANSETRON INJ 2 MG/ML 2 ML VIAL IV PRN (09:34)
[2021-10-25] MEDS ORDERED: ePHEDrine sulfate 50 MG/ML AMP IV PRN (09:34)
[2021-10-25] MEDS ORDERED: HYDROmorphone INJ 1 MG/ML SYRINGE IV PRN (09:34)
[2021-10-25] MEDS ORDERED: ATROPINE SULFATE 0.1 MG/ML 10ML SYR IV PRN (09:34)
[2021-10-25] MEDS ORDERED: fentaNYL citrate 100 MCG/2 ML VIAL IV PRN (09:34)
--- NOTE | 2021-10-25 10:05 | History & Physical Bridge Note ---
Date of Service October 25, 2021 History & Physical Bridge Note I have examined the patient, reviewed the History & Physical and in the interval since the performance of the History & Physical I have noted the following changes of clinical significance: no changes noted Lumbar decompression and fusion L5-S1.
[2021-10-25] MEDS ORDERED: EPINEPHrine INJ 1 MG/ML AMP ONE (10:30)
[2021-10-25] MEDS ORDERED: BUPIVACAINE 0.5 % 5 MG/1 ML MPF 30ML VIAL ONE (10:30)
[2021-10-25] MEDS: ASCORBIC ACID 500 MG TAB PO SCH (10:35)
[2021-10-25] MEDS: PANTOprazole 40 MG TAB PO SCH ×2 (10:35→22:29)
[2021-10-25] MEDS: PREGABALIN 150 MG CAP PO SCH ×2 (10:35→22:34)
[2021-10-25] MEDS: LACTATED RINGER'S 1,000 ML IV SCH ×4 (10:36→22:28)
[2021-10-25] MEDS ORDERED: ePHEDrine sulfate 50 MG/ML SYR ONE (11:38)
[2021-10-25] MEDS ORDERED: PHENYLEPHRINE 100MCG/ML 5ML SYR ONE (11:38)
[2021-10-25] MEDS ORDERED: GLYCOPYRROLATE 0.2 MG/ML VIAL ONE (11:38)
[2021-10-25] MEDS ORDERED: NEOSTIGMINE METHYLSULFATE 1 MG/ML 10ML VIAL ONE (11:38)
[2021-10-25] MEDS ORDERED: FLOSEAL HEMOSTATIC MATRIX 10ML TOP ONE (11:38)
[2021-10-25] MEDS ORDERED: ROCURONIUM BROMIDE 10 MG/ML 5 ML VIAL IV ONE (12:03)
[2021-10-25] MEDS ORDERED: LARYING-O-JET KIT (LTA) ONE (12:03)
--- NOTE | 2021-10-25 12:27 | Operative Report ---
Post Operative Report Pre & Post Diagnosis Operation Date: 10/25/21 09:20 Pre-Op Diagnosis: Lumbar disc herniation with radiculopathy Postop diagnosis Same I identified the patient and participated in the time-out.: Yes Procedure Operation Date: 10/25/21 09:20 Actual Procedures #1 revision decompression L5-S1. #2 posterior spinal fusion L5-S1. #3 placement posterior instrumentation L5-S1. #4 placement infuse collagen sponge, and master graft in the posterior gutters L5-S1. Surgeon Harry Fabian, DO Tax Expert Beni Mary Estimated Blood Loss 150 Findings See Below Patient is 5 foot 1 inches tall weighing 104 kg with a BMI in excess of 43. The patient's body habitus did contribute to significant technical difficulty requiring her deepest retractors longus instruments in order to perform her procedure. This had at least 50% increased operative time. Specimens None Indications This is a 51-year-old female who presents with chronic persistent back and leg pain after failing course of nonoperative care she is here for the above- mentioned surgery. Description of Procedure Patient was met with identified informed consent obtained. Patient was then taken to the operative suite underwent ablation placed in a prone position the Shimon table atop Collins frame. All bony prominences well-padded eyes inspected to ensure no external pressure placed upon the bed this point the lumbar spine was prepped and draped no sterile fashion. Sharp dissection with the assistance of Bovie cartilage from down to and exposing the the remaining lamina and transverse processes of L5-S1. Revision decompression was performed on the right. I quickly identified evidence of dural ectasia limiting our ability to safely decompress the entire level. I did place a patch of DuraGen over the dural ectasia and and covered it with DuraSeal. I then placed pedicle screws in L5 and S1 bilaterally with assistance of fluoroscopy the purposes denise locked into place. Transverse processes of L5 and the sacral ala were then burred to subcortically bone. Infuse collagen sponge and master graft was placed in the posterior gutters. 15 round DAVID drain inserted. The incision was then closed with 1 Vicryl fascia 2-0 Vicryl subcutaneously and 4 Monocryl for final skin closure. Steri-Strip sterile dressings placed. Patient waken taken PACU stable condition. Please note spinal cord monitoring was utilized at the procedure no changes noted. Amelia zayas was present at the entire surgery and while the patient positioning complex portions of the surgery and final skin closure. I attest to the content of the Intraoperative Record and any orders documented therein. Any exceptions are noted below.
--- NOTE | 2021-10-25 13:21 | Fluoroscopy Report ---
FL lumbar spine 2-3V CLINICAL HISTORY: L5-S1 D/F/I COMPARISON STUDY: Lumbar spine MRI October 23, 2021. FLUOROSCOPY TIME: 28 seconds. FLUOROSCOPIC IMAGES: 2 FINDINGS: Fluoroscopy was provided during L5-S1 decompression and bilateral pedicle screw fusion. Lam glo is intact. IMPRESSION: Fluoroscopy provided during L5-S1 decompression and bilateral pedicle screw fusion. ACT 112: Negative or not required by law. Electronically signed by: Jh Saba M.D. 10/25/2021 1:20 PM
[2021-10-25] MEDS ORDERED: ACETAMINOPHEN 1,000 MG/100 ML VIAL IV STA (13:26)
[2021-10-25] MEDS ORDERED: METOCLOPRAMIDE HCL INJ 5 MG/ML 2 ML VIAL IV PRN (14:32)
[2021-10-25] MEDS ORDERED: LORazepam 0.5 MG/1 ML VIAL IV PRN (14:32)
[2021-10-25] MEDS ORDERED: ALUMINUM/MAGNESIUM SUSP 30 ML UDC PO PRN (14:32)
[2021-10-25] MEDS ORDERED: LACTATED RINGER'S 1,000 ML IV SCH (14:32)
[2021-10-25] MEDS ORDERED: PROMETHAZINE HCL 12.5 MG in SODIUM CHLORIDE 0.9% 50 ML IV PRN (14:32)
[2021-10-25] MEDS ORDERED: traMADol HCL 50 MG TABLET PO PRN (14:32)
[2021-10-25] MEDS ORDERED: FAMOTIDINE 20 MG TAB PO PRN (14:32)
[2021-10-25] MEDS ORDERED: DO NOT ADMINISTER FLU VACCINE PRN (14:32)
[2021-10-25] MEDS ORDERED: bisacodyL 10 MG SUPP PR PRN ×2 (14:32→15:16)
[2021-10-25] MEDS ORDERED: hydrOXYzine HCl 25 MG TAB PO PRN (14:32)
[2021-10-25] MEDS ORDERED: diphenhydrAMINE Capsule 25 MG CAP PO PRN (14:32)
[2021-10-25] MEDS ORDERED: SOD PHOSPHATE/SOD BIPHOSPHATE ENEMA 132 ML BTL PR PRN (14:32)
[2021-10-25] MEDS ORDERED: ONDANSETRON 4 MG OD TAB PO PRN (14:32)
[2021-10-25] MEDS ORDERED: DO NOT ADMINISTER PNEUMOCOCCAL VACCINE PRN (14:32)
[2021-10-25] MEDS ORDERED: ACETAMINOPHEN 1,000 MG/100 ML VIAL IV PRN (14:32)
[2021-10-25] MEDS ORDERED: MAGNESIUM HYDROXIDE SUSP 30 ML UDC PO PRN (14:32)
[2021-10-25] MEDS ORDERED: NALOXONE HCL 0.4 MG/1 ML VIAL/CARP IV PRN (14:32)
--- NOTE | 2021-10-25 14:54 | Anesthesiology Progress Note ---
Date of Service October 25, 2021 Anesthesia Post Procedure Vital Signs Vital Signs: Temp Pulse Pulse Resp BP Pulse Ox 10/25/21 14:10 36.7 C 62 18 102/68 94 10/25/21 14:00 62 14 114/60 93 10/25/21 13:50 55 L 12 127/55 L 93 10/25/21 13:40 55 L 12 101/51 L 93 10/25/21 13:30 61 13 131/58 L 95 10/25/21 13:20 63 13 140/61 97 10/25/21 13:10 67 13 151/98 H 98 10/25/21 13:00 61 18 141/85 H 99 10/25/21 12:53 36.5 C 66 12 164/87 H 100 10/25/21 09:17 36.7 C 58 L 18 109/60 95 10/25/21 08:11 36.4 C L 45 L 18 92/64 L 96 10/24/21 20:37 36.3 C L 75 16 127/81 96 Pain Intensity Lower Back: Pain Intensity: 5 Right Leg: Pain Intensity: 4 Head: Pain Intensity: 4 Transfer of Care Handoff Completed per policy Notes Mental Status: alert / awake / arousable and participated in evaluation Patient Amnestic to Procedure: Yes Nausea / Vomiting: adequately controlled Pain: adequately controlled Airway Patency, RR, SpO2: stable & adequate BP & HR: stable & adequate Hydration State: stable & adequate Anesthetic Complications: no major complications apparent and Pt Satisfied with anesthetic care
[2021-10-25] MEDS: HYDROmorphone INJ 1 MG/ML SYRINGE IV PRN (15:38)
--- NOTE | 2021-10-25 15:52 | Hospitalist Progress Note ---
Date of Service October 25, 2021 Assessment & Plan (1) Lumbar disc herniation with radiculopathy: Plan: Admitted by orthospine, s/p decompression and fusion L5-S1 and primary management by Dr. Fabian No bladder incontinence/retention, neurovascularly intact at time of assessment Analgesia per primary team (2) Diabetes mellitus: Plan: Last A1c 6.2, repeat 5.4% Diet controlled <7% previously BSG 149 on admission Glucose checks AC/at bedtime Creatinine normal BMP daily Goal BSG 562545, if persistently above 140 may add very conservative SSI (3) Hypertension: Plan: Continue home clonidine 0.15mg nightly (4) Hypothyroidism: Plan: Continue Synthroid 75 mcg p.o. daily TSH normal 01/2021 and repeat today 2.750 (WNL) (5) Depression: Plan: Trazodone 100 mg p.o. nightly as needed for sleep Clonidine above with secondary benefit on mood per pt (6) Iron deficiency anemia: Plan: Anemia with iron deficiency and B12 deficiency Hemoglobin 13.0, within normal limits on admission MCV slightly microcytic 77.9 with very high increased RDW 23.8% question mixed microcytic/macrocytic etiology Transferrin saturation 3% 1 month prior B12, folate levels normal Does not tolerate oral iron per pt. Recently completed IV iron infusion last week (has had 3x total) at the [facility] (7) GERD (gastroesophageal reflux disease): Plan: Omeprazole 40 mg p.o. twice daily converted to Protonix while admitted (8) Fibromyalgia: Plan: Continue pregabalin 150 mg p.o. twice daily (9) Morbid obesity: Plan: BMI 43.3 Optimize morbidities as above Recommend outpatient follow-up with continued weight loss goals (10) Dental caries: Plan: All teeth extracted 1 mo ago, pending denture fitting Well healed Completed oupt abx course post removal Plan: DVT prophylaxis: SCDs, consider initiating DVT ppx in AM (at least 8 hrs post op) Diet: Clears and advance to diabetic diet as tolerated Disposition: Medical/surgical CODE STATUS: Full code AM labs ordered Thank you for allowing us to participate in this patient's care, will follow. Admission and Anticipated Discharge Date Admission Date: October 24, 2021 Subjective Patient was seen on rounds this afternoon. Attempted to see patient on morning rounds; however, she was in the OR at that time. Patient is currently lying flat in bed with lights off. She reports having pain in her lower back at her surgical site. Per RN, she had a severe spinal headache, she was medicated with a dose of IV Dilaudid. Review of Systems Review of Systems: Limited due to her pain and drowsiness following surgery. c/o lower back pain. Physical Exam Physical Exam: GENERAL: 51 yo morbidly obese WF. NAD. LUNGS: Clear to auscultation bilaterally. No accessory muscle use. No W/R/R. CARDIOVASCULAR: Regular rate and rhythm. No M/G/R. No JVD. ABDOMEN: Soft, obese, non-tender and non-distended. BS normoactive x 4 quad. EXTREMITIES: No edema. Non-tender. Peripheral pulses +2/4. NEUROLOGIC: Drowsy but arousable and answers questions appropriately PSYCHIATRIC: Cooperative. Appropriate mood and affect. SKIN: Warm, dry, intact. No rashes or lesions. Results & Data Results & Data ([facility]) Vital Signs (Past 12 Hours) Vital Signs Temp Pulse Pulse Resp BP BP Pulse Ox 10/25/21 15:27 36.3 C L 52 L 17 130/82 99 10/25/21 15:02 36.3 C L 56 L 16 127/84 99 10/25/21 14:10 36.7 C 62 18 102/68 94 10/25/21 14:00 62 14 114/60 93 10/25/21 13:50 55 L 12 127/55 L 93 10/25/21 13:40 55 L 12 101/51 L 93 10/25/21 13:30 61 13 131/58 L 95 10/25/21 13:20 63 13 140/61 97 10/25/21 13:10 67 13 151/98 H 98 10/25/21 13:00 61 18 141/85 H 99 10/25/21 12:53 36.5 C 66 12 164/87 H 100 10/25/21 09:17 36.7 C 58 L 18 109/60 95 10/25/21 08:11 36.4 C L 45 L 18 92/64 L 96 Laboratory Results ha1c=5.4% TSH=2.750 PG Care Time/CCT Total # of Minutes Spent Total Time Spent with Patient: Total time spent is greater than 50% in coordination of care (as documented) at patient's floor/unit and/or counseling patient: Coding Level of Care Code 96361 Subseq Hosp Care Lvl 2 Diagnoses Diabetes mellitus E11.9 Hypertension I10 Hypothyroidism E03.9 Depression F32.9 Iron deficiency anemia D50.9 GERD (gastroesophageal reflux disease) K21.9 Fibromyalgia M79.7 Morbid obesity E66.01 Dental caries K02.9 Lumbar disc herniation with radiculopathy M51.16
[2021-10-25] MEDS: CLINDAMYCIN 600 MG in DEXTROSE 5% 50 ML IV SCH (18:18)
[2021-10-25] MEDS: HYDROmorphone INJ 0.5 MG/0.5 ML SYR IV PRN ×2 (19:49→22:44)
[2021-10-25] MEDS: DOCUSATE SODIUM/SENNA 50/8.6MG TAB PO SCH (22:29)
[2021-10-25] MEDS: TOPIRAMATE 100 MG TAB PO SCH (22:31)
[2021-10-25] MEDS: cloNIDine HCL 0.1 MG TAB PO SCH (22:31)
[2021-10-25] MEDS: traZODone HCL 100 MG TAB PO SCH (22:32)
[2021-10-26] MEDS: CLINDAMYCIN 600 MG in DEXTROSE 5% 50 ML IV SCH (01:32)
[2021-10-26] MEDS: HYDROmorphone INJ 0.5 MG/0.5 ML SYR IV PRN ×4 (05:38→23:19)
[2021-10-26] MEDS: LEVOTHYROXINE SODIUM 75 MCG TABLET PO SCH (05:43)
[2021-10-26] MEDS: POLYETHYLENE (MIRALAX) 17 GM PACK PO SCH ×4 (05:44→23:18)
[2021-10-26] MEDS: LACTATED RINGER'S 1,000 ML IV SCH (05:50)
[2021-10-26 07:37] LABS: Basophils # (auto) 0.01 K/uL (0-0.2); Basophils % (auto) 0.1 %; Hematocrit (blood only) 41.9 % (37-47); Hemoglobin 12.4 g/dL (12.0-16.0); Immature Granulocytes # (auto) 0.02 K/uL (0.00-0.02); Immature Granulocytes % (auto) 0.3 %; Lymphocytes # (auto) 1.09 K/uL (1.2-3.4); Lymphocytes % (auto) 15.8 %; Mean Corpuscular Hemoglobin 23.8 pg (25-34); Mean Corpuscular Hgb Conc 29.6 g/dL (32-36); Mean Corpuscular Volume 80.3 fL (80-100); Mean Platelet Volume 9.1 fL (7.4-10.4); Monocytes # (auto) 0.37 K/uL (0.11-0.59); Monocytes % (auto) 5.4 %; Neutrophils % (auto) 78.4 %; Platelet Count 222 K/uL (130-400); RDW Coefficient of Variation 24.4 % (11.5-14.5); RDW Standard Deviation 71.2 fL (36.4-46.3); Red Blood Count 5.22 M/uL (4.2-5.4); White Blood Count 6.89 K/uL (4.8-10.8)
[2021-10-26 07:59] LABS: Anisocytosis Present
[2021-10-26 08:01] LABS: BUN Creatinine Ratio 16.2 (10-20); Creatinine Clr Calc Pharmacy 93.3 ml/min; Est GFR (African American) 99.6 ml/min; Potassium 4.2 mmol/L (3.5-5.1)
[2021-10-26] MEDS: ASCORBIC ACID 500 MG TAB PO SCH (09:18)
[2021-10-26] MEDS: PANTOprazole 40 MG TAB PO SCH ×2 (09:18→20:17)
[2021-10-26] MEDS: dexAMETHasone 6 MG in SYRINGE 0 ML IV SCH (09:19)
--- NOTE | 2021-10-26 09:24 | CT Scan Report ---
CT OF THE HEAD WITHOUT CONTRAST CLINICAL HISTORY: aphasia, headache s/p spinal surgery COMPARISON STUDY: No previous studies for comparison. CT DOSE: 734.05 mGy.cm TECHNIQUE: Helical axial images of the head were obtained without IV contrast. Automated exposure con trol was utilized for the study. A dose lowering technique was utilized adhering to the principles o f ALARA. FINDINGS: No acute intracranial hemorrhage, midline shift or mass effect is present. The ventricular system is unremarkable. The basal cisterns are patent. No extra-axial collections are present. There are no findings to suggest acute dural sinus thrombosis or acute territorial infarct. No significant calvarial abnormalities are present. Visualized portions of the sinuses and mastoid air cells are chrissy ar. IMPRESSION: No acute intracranial findings. ACT 112: Negative or not required by law. Electronically signed by: Jh Saba M.D. 10/26/2021 9:22 AM
[2021-10-26] MEDS: PREGABALIN 150 MG CAP PO SCH ×2 (09:25→20:17)
[2021-10-26] MEDS: ONDANSETRON INJ 2 MG/ML 2 ML VIAL IV PRN (09:25)
--- NOTE | 2021-10-26 10:55 | Orthopedic Progress Note ---
Date of Service October 26, 2021 Assessment & Plan (1) Lumbar disc herniation with radiculopathy: Plan: At this time we will maintain strict bedrest with head of bed flat. I did discontinue the drain. We will plan to keep her bedrest probably until Saturday. Admission and Anticipated Discharge Date Admission Date: October 24, 2021 Subjective Back pain is controlled. She is struggling with a headache. No leg pain. Physical Exam Physical Exam: On exam she has good strength testing. I did have her lie flat. She was more comfortable in this position. Results & Data ([facility]) Vital Signs (Past 12 Hours) Vital Signs Temp Pulse Resp BP Pulse Ox 10/26/21 07:23 36.6 C 59 L 16 94/66 L 99 10/26/21 03:29 36.5 C 53 L 16 122/85 100
[2021-10-26] MEDS: SUMAtriptan succinate 50 MG TAB PO PRN (11:47)
--- NOTE | 2021-10-26 12:40 | Hospitalist Progress Note ---
Date of Service October 26, 2021 Assessment & Plan (1) Lumbar disc herniation with radiculopathy: Plan: Admitted by orthospine, s/p decompression and fusion L5-S1 and primary management by Dr. Fabian No bladder incontinence/retention, neurovascularly intact at time of assessment Analgesia per primary team BR until otherwise outlined by Dr. Fabian maintain humphreys while on strict BR (2) Headache: Plan: Complex Migraine headache v. Spinal headache from surgery (d/t dural patch) Ordered CT head w/o contrast which demonstrated no acute findings On Topamax at night which has been continued Resume abortive medication --> On Relpax at home which is NF, will order Imitrex here Pt to lay flat as per Dr. Fabian and remain on BR probably until Saturday (3) Diabetes mellitus: Plan: Last A1c 6.2, repeat 10/24 5.4% Diet controlled <7% previously BSG 149 on admission Glucose checks AC/at bedtime Goal BSG 340148, if persistently above 140 may add very conservative SSI Anticipate some elevated BS readings in setting of IV steroid administration Diabetic diet ordered (4) Hypertension: Plan: Continue home clonidine 0.15mg nightly (5) Hypothyroidism: Plan: Continue Synthroid 75 mcg p.o. daily TSH normal 01/2021 and repeat today 2.750 (WNL) (6) Depression: Plan: Trazodone 100 mg p.o. nightly as needed for sleep Clonidine above with secondary benefit on mood per pt (7) Iron deficiency anemia: Plan: Anemia with iron deficiency and B12 deficiency Hemoglobin 13.0, within normal limits on admission MCV slightly microcytic 77.9 with very high increased RDW 23.8% question mixed microcytic/macrocytic etiology Transferrin saturation 3% 1 month prior B12, folate levels normal Does not tolerate oral iron per pt. Recently completed IV iron infusion last week (has had 3x total) at the [facility] (8) GERD (gastroesophageal reflux disease): Plan: Omeprazole 40 mg p.o. twice daily converted to Protonix while admitted (9) Fibromyalgia: Plan: Continue pregabalin 150 mg p.o. twice daily (10) Morbid obesity: Plan: BMI 43.3 Optimize morbidities as above Recommend outpatient follow-up with continued weight loss goals Plan: DVT prophylaxis: SCDs, I have reached out to Dr. Fabian regarding initiating Lovenox due to requiring ongoing BR status and her obesity, she is a high risk for DVT Diet: Clears and advance to diabetic diet as tolerated Disposition: Medical/surgical CODE STATUS: Full code AM labs ordered Thank you for allowing us to participate in this patient's care, will follow. Admission and Anticipated Discharge Date Admission Date: October 24, 2021 Irving Wakefield was seen on rounds this morning. She is currently laying flat, c/o back pain and headache. She is rating her back pain a 9/10. Pt does suffer from migraine headaches, takes Relpax at home which is NF here. Nightshift RN notified the night resident that she was having some issues with word finding this AM and repeating phrases, she was medicated pt with Dilaudid 0.5mg IV around 0538. Dayshift RN then notified that patient seemed a little jerky and wa s c/o headache and leg pain, refused additional pain medication for her. Head CT ordered this morning and completed, no acute findings. Review of Systems Review of Systems: CONSTITUTIONAL: +morbid obesity. Denies weight loss/gain, fever and chills, fatigue, malaise, generalized weakness. HEENT: Denies changes in vision and hearing. RESPIRATORY: Denies SOB, cough, wheezing. CV: Denies palpitations, CP, lower extremity edema, orthopnea, PND. GI: Denies abdominal pain, nausea, vomiting and diarrhea. : +humphreys. MUSCULOSKELETAL: +back pain. SKIN: Denies rash and pruritus. NEUROLOGICAL: Denies headache, syncope, focal weakness, numbness, tingling. PSYCHIATRIC: Denies recent changes in mood. Denies anxiety and depression. Physical Exam Physical Exam: GENERAL: 51 yo morbidly obese WF, A&Ox3. NAD. LUNGS: Clear to auscultation bilaterally. No accessory muscle use. No W/R/R. CARDIOVASCULAR: Regular rate and rhythm. No M/G/R. No JVD. ABDOMEN: Soft, obese, non-tender and non-distended. BS normoactive x 4 quad. : humphreys in place EXTREMITIES: No edema. Non-tender. Peripheral pulses +2/4. NEUROLOGIC: b/l LE NV intact. PSYCHIATRIC: Cooperative. Appropriate mood and affect. SKIN: Warm, dry, intact. No rashes or lesions. Results & Data Results & Data ([facility]) Vital Signs (Past 12 Hours) Vital Signs Temp Pulse Resp BP Pulse Ox 10/26/21 11:20 36.5 C 85 16 104/71 94 10/26/21 07:23 36.6 C 59 L 16 94/66 L 99 10/26/21 03:29 36.5 C 53 L 16 122/85 100 Laboratory Results 10/26/21 06:41 10/26/21 06:[address] 10/26/21 08:12 CT OF THE HEAD WITHOUT CONTRAST CLINICAL HISTORY: aphasia, headache s/p spinal surgery COMPARISON STUDY: No previous studies for comparison. CT DOSE: 734.05 mGy.cm TECHNIQUE: Helical axial images of the head were obtained without IV contrast. Automated exposure control was utilized for the study. A dose lowering te chnique was utilized adhering to the principles of ALARA. FINDINGS: No acute intracranial hemorrhage, midline shift or mass effect is present. The ventricular system is unremarkable. The basal cisterns are patent. No extra-axial collections are present. There are no findings to suggest acute dural sinus thrombosis or acute territorial infarct. No significant calvarial abnormalities are present. Visualized portions of the sinuses and mastoid air cells are clear. IMPRESSION: No acute intracranial findings. ACT 112: Negative or not required by law. Electronically signed by: Jh Saba M.D. 10/26/2021 9:22 AM PG Care Time/CCT Total # of Minutes Spent Total Time Spent with Patient: Total time spent is greater than 50% in coordination of care (as documented) at patient's floor/unit and/or counseling patient: Coding Level of Care Code 75823 Subseq Hosp Care Lvl 2 Diagnoses Lumbar disc herniation with radiculopathy M51.16 Diabetes mellitus E11.9 Hypertension I10 Hypothyroidism E03.9 Depression F32.9 Iron deficiency anemia D50.9 GERD (gastroesophageal reflux disease) K21.9 Fibromyalgia M79.7 Morbid obesity E66.01 Headache R51.9
[2021-10-26] MEDS: traZODone HCL 100 MG TAB PO SCH (20:17)
[2021-10-26] MEDS: DOCUSATE SODIUM/SENNA 50/8.6MG TAB PO SCH (20:17)
[2021-10-26] MEDS: TOPIRAMATE 100 MG TAB PO SCH (20:18)
[2021-10-26] MEDS: cloNIDine HCL 0.1 MG TAB PO SCH (20:18)
[2021-10-27] MEDS: HYDROmorphone INJ 1 MG/ML SYRINGE IV PRN (04:15)
[2021-10-27] MEDS: LEVOTHYROXINE SODIUM 75 MCG TABLET PO SCH (05:41)
[2021-10-27] MEDS: POLYETHYLENE (MIRALAX) 17 GM PACK PO SCH ×4 (05:43→23:37)
[2021-10-27 06:48] LABS: Basophils # (auto) 0.01 K/uL (0-0.2); Basophils % (auto) 0.1 %; Eosinophils # (auto) 0.05 K/uL (0-0.5); Eosinophils % (auto) 0.7 %; Hematocrit (blood only) 39.5 % (37-47); Immature Granulocytes # (auto) 0.02 K/uL (0.00-0.02); Immature Granulocytes % (auto) 0.3 %; Lymphocytes # (auto) 1.65 K/uL (1.2-3.4); Lymphocytes % (auto) 22.7 %; Mean Corpuscular Hemoglobin 24.1 pg (25-34); Mean Corpuscular Hgb Conc 30.4 g/dL (32-36); Mean Corpuscular Volume 79.3 fL (80-100); Mean Platelet Volume 8.8 fL (7.4-10.4); Monocytes # (auto) 0.52 K/uL (0.11-0.59); Monocytes % (auto) 7.2 %; Neutrophils # (auto) 5.01 K/uL (1.4-6.5); Platelet Count 221 K/uL (130-400); RDW Coefficient of Variation 24.8 % (11.5-14.5); Red Blood Count 4.98 M/uL (4.2-5.4); White Blood Count 7.26 K/uL (4.8-10.8)
[2021-10-27 07:26] LABS: BUN Creatinine Ratio 19.1 (10-20); Calcium 8.9 mg/dl (8.5-10.1); Creatinine Clr Calc Pharmacy 81.2 ml/min; Est GFR (African American) 84.1 ml/min; Est GFR (Non-African American) 72.6 ml/min; Potassium 3.5 mmol/L (3.5-5.1)
[2021-10-27] MEDS: PANTOprazole 40 MG TAB PO SCH ×2 (10:12→20:43)
[2021-10-27] MEDS: ASCORBIC ACID 500 MG TAB PO SCH (10:12)
[2021-10-27] MEDS: dexAMETHasone 6 MG in SYRINGE 0 ML IV SCH (10:12)
[2021-10-27] MEDS: LORazepam 0.5 MG TAB PO PRN (10:15)
[2021-10-27] MEDS: PREGABALIN 150 MG CAP PO SCH ×2 (10:15→20:41)
[2021-10-27] MEDS: SUMAtriptan succinate 50 MG TAB PO PRN (10:23)
--- NOTE | 2021-10-27 12:47 | Hospitalist Progress Note ---
Date of Service October 27, 2021 Assessment & Plan (1) Lumbar disc herniation with radiculopathy: Plan: Admitted by orthospine, s/p decompression and fusion L5-S1 on 10/25; primary management by Dr. Fabian BR until otherwise outlined by Dr. Fabian (in setting of headache currently) Maintain humphreys while on strict BR (2) Headache: Plan: - Complex Migraine headache v. Spinal headache from surgery (d/t dural patch) -- Reports this is slightly improved today -- Remains afebrile and no leukocytosis to suspect infectious process CT head w/o contrast which demonstrated no acute findings On Topamax at night which has been continued Resume abortive medication --> On Relpax at home which is NF, Imitrex ordered PRN however may have limited effects this far into the headache Pt to lay flat as per Dr. Fabian and remain on BR probably until Saturday (3) Diabetes mellitus: Plan: A1c 10/24 5.4% Diet controlled <7% previously Anticipate some elevated BS readings in setting of IV steroid administration - will monitor for need to place liberal SSI Diabetic diet ordered (4) Hypertension: Plan: - Stable Continue home clonidine 0.15mg nightly (5) Hypothyroidism: Plan: Continue Synthroid 75 mcg p.o. daily TSH 2.750 (WNL) (6) Depression: Plan: Trazodone 100 mg p.o. nightly as needed for sleep Clonidine above with secondary benefit on mood per pt (7) Iron deficiency anemia: Plan: Anemia with iron deficiency and B12 deficiency Hemoglobin 13.0, within normal limits on admission MCV slightly microcytic 77.9 with very high increased RDW 23.8% question mixed microcytic/macrocytic etiology Transferrin saturation 3% 1 month prior B12, folate levels normal Does not tolerate oral iron per pt. Recently completed IV iron infusion last week (has had 3x total) at the [facility] (8) GERD (gastroesophageal reflux disease): Plan: Omeprazole 40 mg p.o. twice daily converted to Protonix while admitted (9) Fibromyalgia: Plan: Continue pregabalin 150 mg p.o. twice daily (10) Morbid obesity: Plan: BMI 43.3 Optimize morbidities as above Recommend outpatient follow-up with continued weight loss goals Plan: DVT prophylaxis: SCDs Diet: diabetic diet as tolerated Disposition: Medical/surgical CODE STATUS: Full code Likely sitting up starting tomorrow; continued pain control; PT/OT pending ability to get up Thank you for allowing us to participate in this patient's care, will follow. Admission and Anticipated Discharge Date Admission Date: October 24, 2021 Subjective Reports her headache feels a bit better today but still present. Laying flat is assisting. She states her back pain was a bit aggravated but just took something for pain and awaiting response. Review of Systems Review of Systems: All systems reviewed & are unremarkable except as noted in Subjective Physical Exam Physical Exam: PHYSICAL EXAM General Appearance: WDWN in NAD who is A&O x 3 HEENT: Head is normocephalic/atraumatic; Hearing grossly intact; Mucous membranes moist Neck: Supple; Trachea midline; Neg JVD Heart: RRR with no M/G/R Lungs: CTA in all lung villagomez bilaterally; Respirations unlabored; Neg accessory muscle use Abdomen: Soft, non-tender, non-distended; Positive BS x 4 quadrants Extremities: Neg cyanosis or edema Neurological: Speech clear; Gross motor/sensory function intact; Neg focal neurologic deficits Psychiatric: Appropriate mood/affect Skin: Normal Color; Warm/Dry Results & Data Results & Data ([facility]) Vital Signs (Past 12 Hours) Vital Signs Temp Pulse Resp BP Pulse Ox 10/27/21 07:36 36.9 C 89 16 135/78 94 PG Care Time/CCT Total # of Minutes Spent Total Time Spent with Patient: Total time spent is greater than 50% in coordination of care (as documented) at patient's floor/unit and/or counseling patient: Coding Level of Care Code 50462 Inpt Consult Level 2 Diagnoses Lumbar disc herniation with radiculopathy M51.16 Headache R51.9 Diabetes mellitus E11.9 Hypertension I10 Hypothyroidism E03.9 Depression F32.9 Iron deficiency anemia D50.9 GERD (gastroesophageal reflux disease) K21.9 Fibromyalgia M79.7 Morbid obesity E66.01
--- NOTE | 2021-10-27 13:08 | Orthopedic Progress Note ---
Date of Service October 27, 2021 Assessment & Plan (1) Lumbar disc herniation with radiculopathy: Plan: At this time we will get him maintain head of bed flat for another 24 hours. Will use Ativan for back spasms. Pending her progress tomorrow I may begin allowing her to sit up in bed. Admission and Anticipated Discharge Date Admission Date: October 24, 2021 Subjective Patient complaining of back pain. She denies any leg pain. Denies any headaches nausea or vomiting. She has a remained relatively flat over the past 24 hours. Physical Exam Physical Exam: On exam she has good strength testing. Sensory intact. Results & Data ([facility]) Vital Signs (Past 12 Hours) Vital Signs Temp Pulse Resp BP Pulse Ox 10/27/21 07:36 36.9 C 89 16 135/78 94
[2021-10-27] MEDS: HYDROmorphone INJ 0.5 MG/0.5 ML SYR IV PRN ×2 (13:21→20:41)
[2021-10-27] MEDS: ACETAMINOPHEN 500 MG TAB PO PRN (20:40)
[2021-10-27] MEDS: ONDANSETRON INJ 2 MG/ML 2 ML VIAL IV PRN (20:41)
[2021-10-27] MEDS: cloNIDine HCL 0.1 MG TAB PO SCH (20:42)
[2021-10-27] MEDS: DOCUSATE SODIUM/SENNA 50/8.6MG TAB PO SCH (20:42)
[2021-10-27] MEDS: TOPIRAMATE 100 MG TAB PO SCH (20:42)
[2021-10-27] MEDS: traZODone HCL 100 MG TAB PO SCH (20:43)
[2021-10-28] MEDS: HYDROmorphone INJ 0.5 MG/0.5 ML SYR IV PRN ×2 (00:27→04:40)
[2021-10-28] MEDS: LORazepam 0.5 MG TAB PO PRN (04:40)
[2021-10-28] MEDS: SUMAtriptan succinate 50 MG TAB PO PRN ×2 (04:40→09:54)
[2021-10-28] MEDS: POLYETHYLENE (MIRALAX) 17 GM PACK PO SCH ×3 (04:41→17:43)
[2021-10-28] MEDS: LEVOTHYROXINE SODIUM 75 MCG TABLET PO SCH (04:42)
[2021-10-28] MEDS: dexAMETHasone 6 MG in SYRINGE 0 ML IV SCH (09:54)
[2021-10-28] MEDS: PANTOprazole 40 MG TAB PO SCH ×2 (09:55→19:29)
[2021-10-28] MEDS: ASCORBIC ACID 500 MG TAB PO SCH (09:55)
[2021-10-28] MEDS: PREGABALIN 150 MG CAP PO SCH ×2 (10:00→19:36)
[2021-10-28] MEDS: oxyCODONE HCL IR 5 MG TAB (IMMEDIATE RELEASE) PO PRN ×3 (10:00→17:46)
--- NOTE | 2021-10-28 12:57 | Hospitalist Progress Note ---
Date of Service October 28, 2021 Assessment & Plan (1) Lumbar disc herniation with radiculopathy: Plan: Admitted by orthospine, s/p decompression and fusion L5-S1 on 10/25; primary management by Dr. Fabian Activity per primary team; was initially on BR with HOB flat but was sitting up more today. Reports no worsening of headache and some slight improvement; ice pack on forehead is helping as well -- Suspect maybe some could be tension headache as well Maintain humphreys while on strict BR but then can D/C per nursing protocol - No BM since admission - has aggressive bowel regimen in place currently and will continue (2) Headache: Plan: - Complex Migraine headache v. Spinal headache from surgery (d/t dural patch) and/or tension component-- Reports this is slightly improved today -- Remains afebrile and no leukocytosis to suspect infectious process CT head w/o contrast which demonstrated no acute findings On Topamax at night which has been continued Resume abortive medication --> On Relpax at home which is NF and she is going to see if can bring this in (uncertain how much it would help this far into the headache), Imitrex ordered PRN however may have limited effects this far into the headache and she reports she didnt have much effect when taking it in the past Activity as above (3) Diabetes mellitus: Plan: A1c 10/24 5.4% Diet controlled <7% previously Anticipate some elevated BS readings in setting of IV steroid administration - will monitor for need to place liberal SSI Diabetic diet ordered (4) Hypertension: Plan: - Stable Continue home clonidine 0.15mg nightly (5) Hypothyroidism: Plan: Continue Synthroid 75 mcg p.o. daily TSH 2.750 (WNL) (6) Depression: Plan: Trazodone 100 mg p.o. nightly as needed for sleep Clonidine above with secondary benefit on mood per pt (7) Iron deficiency anemia: Plan: Anemia with iron deficiency and B12 deficiency Hemoglobin 13.0, within normal limits on admission MCV slightly microcytic 77.9 with very high increased RDW 23.8% question mixed microcytic/macrocytic etiology Transferrin saturation 3% 1 month prior B12, folate levels normal Does not tolerate oral iron per pt. Recently completed IV iron infusion last week (has had 3x total) at the [facility] (8) GERD (gastroesophageal reflux disease): Plan: Omeprazole 40 mg p.o. twice daily converted to Protonix while admitted (9) Fibromyalgia: Plan: Continue pregabalin 150 mg p.o. twice daily (10) Morbid obesity: Plan: BMI 43.3 Optimize morbidities as above Recommend outpatient follow-up with continued weight loss goals Plan: DVT prophylaxis: SCDs Diet: diabetic diet as tolerated Disposition: Medical/surgical CODE STATUS: Full code continued pain control; PT/OT pending ability to get up Thank you for allowing us to participate in this patient's care, will follow. Admission and Anticipated Discharge Date Admission Date: October 24, 2021 Subjective No acute events overnight. She reports her back pain was a little worse overnight but is currently a bit better. HOB is slightly elevated and she report s some improvement in her headache. Headache extends from back up her spine and wraps around her head. Suspect a component of tension headache as well. She states having an ice pack on her forehead is helping. No visual changes. She reports she is able to move her legs better since the surgery. She has not moved her bowels since coming into the hospital. She states she does take a probiotic which helps keep her regular at home and will order. Review of Systems Review of Systems: All systems reviewed & are unremarkable except as noted in Subjective Physical Exam Physical Exam: PHYSICAL EXAM General Appearance: WDWN in NAD who is A&O x 3 HEENT: Head is normocephalic/atraumatic; Hearing grossly intact; Mucous membranes moist Neck: Supple; Trachea midline; Neg JVD Heart: RRR with no M/G/R Lungs: CTA in all lung villagomez bilaterally; Respirations unlabored; Neg accessory muscle use Abdomen: Soft, non-tender, non-distended; Positive BS x 4 quadrants Extremities: Neg cyanosis or edema Neurological: Speech clear; Gross motor/sensory function intact; Neg focal neurologic deficits Psychiatric: Appropriate mood/affect Skin: Normal Color; Warm/Dry Results & Data Results & Data ([facility]) Vital Signs (Past 12 Hours) Vital Signs Temp Pulse Resp BP Pulse Ox 10/28/21 08:13 36.5 C 73 18 142/83 H 93 PG Care Time/CCT Total # of Minutes Spent Total Time Spent with Patient: Total time spent is greater than 50% in coordination of care (as documented) at patient's floor/unit and/or counseling patient: Coding Level of Care Code 00508 Inpt Consult Level 2 Diagnoses Lumbar disc herniation with radiculopathy M51.16 Headache R51.9 Diabetes mellitus E11.9 Hypertension I10 Hypothyroidism E03.9 Depression F32.9 Iron deficiency anemia D50.9 GERD (gastroesophageal reflux disease) K21.9 Fibromyalgia M79.7 Morbid obesity E66.01
[2021-10-28] MEDS: ADVANCED PROBIOTIC 1250 MG CAPSULE PO SCH (14:46)
[2021-10-28] MEDS: cloNIDine HCL 0.1 MG TAB PO SCH (19:28)
[2021-10-28] MEDS: TOPIRAMATE 100 MG TAB PO SCH (19:29)
[2021-10-28] MEDS: traZODone HCL 100 MG TAB PO SCH (19:29)
[2021-10-28] MEDS: DOCUSATE SODIUM/SENNA 50/8.6MG TAB PO SCH (19:29)
[2021-10-29] MEDS: POLYETHYLENE (MIRALAX) 17 GM PACK PO SCH ×4 (00:52→18:02)
[2021-10-29] MEDS: oxyCODONE HCL IR 5 MG TAB (IMMEDIATE RELEASE) PO PRN ×4 (02:28→19:25)
[2021-10-29] MEDS: LEVOTHYROXINE SODIUM 75 MCG TABLET PO SCH (05:07)
[2021-10-29] MEDS: ADVANCED PROBIOTIC 1250 MG CAPSULE PO SCH (08:58)
[2021-10-29] MEDS: ASCORBIC ACID 500 MG TAB PO SCH (08:58)
[2021-10-29] MEDS: PANTOprazole 40 MG TAB PO SCH ×2 (08:58→21:22)
[2021-10-29] MEDS: PREGABALIN 150 MG CAP PO SCH ×2 (09:00→21:21)
--- NOTE | 2021-10-29 10:39 | Orthopedic Progress Note ---
Date of Service October 29, 2021 Assessment & Plan (1) Lumbar disc herniation with radiculopathy: Plan: At this time would like to initiate transfers from bed to chair. If she tolerates this well we may begin physical therapy tomorrow. Admission and Anticipated Discharge Date Admission Date: October 24, 2021 Subjective Back pain controlled leg pain markedly improved. Patient denies headaches at this time. She has been able to sit up all morning without difficulty. Physical Exam Physical Exam: Patient appears comfortable. She has good strength testing. Results & Data ([facility]) Vital Signs (Past 12 Hours) Vital Signs Temp Pulse Resp BP Pulse Ox 10/29/21 08:50 36.6 C 79 18 124/78 96 10/28/21 23:20 36.8 C 60 16 117/81 92
--- NOTE | 2021-10-29 11:14 | Hospitalist Progress Note ---
Date of Service October 29, 2021 Assessment & Plan (1) Lumbar disc herniation with radiculopathy: Plan: Admitted by orthospine, s/p decompression and fusion L5-S1 on 10/25; primary management by Dr. Fabian Activity per primary team; was initially on BR with HOB flat but was sitting up today with plans to move to chair. Reports near resolution of headache but mostly just muscular tightness and can use K-pad to shoulders/neck but not on surgical site Maintain humphreys today but once up and moving well can D/C per nursing protocol - No BM since admission - has aggressive bowel regimen in place currently and will continue; hopefully with ambulation this will assist. Good bowel sounds and tolerating a diet (2) Headache: Plan: - Complex Migraine headache v. Spinal headache from surgery (d/t dural patch) and/or tension component-- Reports this is nearly resolved today -- Remains afebrile and no leukocytosis to suspect infectious process CT head w/o contrast which demonstrated no acute findings On Topamax at night which has been continued Resume abortive medication --> On Relpax at home which is NF and she is going to see if can bring this in (uncertain how much it would help this far into the headache), Imitrex ordered PRN however may have limited effects this far into the headache and she reports she didnt have much effect when taking it in the past Activity as above (3) Diabetes mellitus: Plan: A1c 10/24 5.4% Diet controlled <7% previously Anticipate some elevated BS readings in setting of IV steroid administration - will monitor for need to place liberal SSI Diabetic diet ordered (4) Hypertension: Plan: - Stable Continue home clonidine 0.15mg nightly (5) Hypothyroidism: Plan: Continue Synthroid 75 mcg p.o. daily TSH 2.750 (WNL) (6) Depression: Plan: Trazodone 100 mg p.o. nightly as needed for sleep Clonidine above with secondary benefit on mood per pt (7) Iron deficiency anemia: Plan: Anemia with iron deficiency and B12 deficiency Hemoglobin 13.0, within normal limits on admission MCV slightly microcytic 77.9 with very high increased RDW 23.8% question mixed microcytic/macrocytic etiology Transferrin saturation 3% 1 month prior B12, folate levels normal Does not tolerate oral iron per pt. Recently completed IV iron infusion last week (has had 3x total) at the [facility] (8) GERD (gastroesophageal reflux disease): Plan: Omeprazole 40 mg p.o. twice daily converted to Protonix while admitted (9) Fibromyalgia: Plan: Continue pregabalin 150 mg p.o. twice daily (10) Morbid obesity: Plan: BMI 43.3 Optimize morbidities as above Recommend outpatient follow-up with continued weight loss goals Plan: DVT prophylaxis: SCDs Diet: diabetic diet as tolerated Disposition: Medical/surgical CODE STATUS: Full code continued pain control; PT/OT likely to start tomorrow Thank you for allowing us to participate in this patient's care, will follow. Admission and Anticipated Discharge Date Admission Date: October 24, 2021 Subjective No acute events overnight. Reports her headache is much improved and looks like she is feeling better. She does reports some tightness into her neck and shoulders and can feel her muscles tightening and will order K-pad for this area. She reports her back is feeling better today. She has tolerated sitting up in bed and plans to transfer to the chair today with goal to start working with therapy tomorrow. She is tolerating a diet without issue. Verbalizes no new co mplaints. Review of Systems Review of Systems: All systems reviewed & are unremarkable except as noted in Subjective Physical Exam Physical Exam: PHYSICAL EXAM General Appearance: WDWN in NAD who is A&O x 3 HEENT: Head is normocephalic/atraumatic; Hearing grossly intact; Mucous membranes moist Neck: Supple; Trachea midline; Neg JVD Heart: RRR with no M/G/R Lungs: CTA in all lung villagomez bilaterally; Respirations unlabored; Neg accessory muscle use Abdomen: Soft, non-tender, non-distended; Positive BS x 4 quadrants Extremities: Neg cyanosis or edema Neurological: Speech clear; Gross motor/sensory function intact; Neg focal neurologic deficits Psychiatric: Appropriate mood/affect Skin: Normal Color; Warm/Dry Results & Data Results & Data ([facility]) Vital Signs (Past 12 Hours) Vital Signs Temp Pulse Resp BP Pulse Ox 10/29/21 08:50 36.6 C 79 18 124/78 96 10/28/21 23:20 36.8 C 60 16 117/81 92 PG Care Time/CCT Total # of Minutes Spent Total Time Spent with Patient: Total time spent is greater than 50% in coordination of care (as documented) at patient's floor/unit and/or counseling patient: Coding Level of Care Code 45912 Inpt Consult Level 1 Diagnoses Lumbar disc herniation with radiculopathy M51.16 Headache R51.9 Diabetes mellitus E11.9 Hypertension I10 Hypothyroidism E03.9 Depression F32.9 Iron deficiency anemia D50.9 GERD (gastroesophageal reflux disease) K21.9 Fibromyalgia M79.7 Morbid obesity E66.01
[2021-10-29] MEDS: ACETAMINOPHEN 500 MG TAB PO PRN (16:42)
[2021-10-29] MEDS: ELETRIPTAN 20 MG PO PRN (20:33)
[2021-10-29] MEDS: cloNIDine HCL 0.1 MG TAB PO SCH (21:21)
[2021-10-29] MEDS: TOPIRAMATE 100 MG TAB PO SCH (21:22)
[2021-10-29] MEDS: DOCUSATE SODIUM/SENNA 50/8.6MG TAB PO SCH (21:22)
[2021-10-29] MEDS: traZODone HCL 100 MG TAB PO SCH (21:22)
[2021-10-30] MEDS: POLYETHYLENE (MIRALAX) 17 GM PACK PO SCH ×2 (00:46→05:51)
[2021-10-30] MEDS: oxyCODONE HCL IR 5 MG TAB (IMMEDIATE RELEASE) PO PRN ×5 (01:50→23:01)
[2021-10-30] MEDS: LEVOTHYROXINE SODIUM 75 MCG TABLET PO SCH (06:38)
[2021-10-30 07:22] LABS: Hematocrit (blood only) 39.4 % (37-47); Hemoglobin 12.4 g/dL (12.0-16.0); Mean Corpuscular Hemoglobin 24.6 pg (25-34); Mean Corpuscular Hgb Conc 31.5 g/dL (32-36); Mean Corpuscular Volume 78.2 fL (80-100); Mean Platelet Volume 9.3 fL (7.4-10.4); Platelet Count 212 K/uL (130-400); Red Blood Count 5.04 M/uL (4.2-5.4); White Blood Count 6.59 K/uL (4.8-10.8)
[2021-10-30] MEDS: PREGABALIN 150 MG CAP PO SCH ×2 (07:42→20:29)
[2021-10-30] MEDS: ELETRIPTAN 20 MG PO PRN ×3 (07:42→20:34)
[2021-10-30] MEDS: PANTOprazole 40 MG TAB PO SCH ×2 (07:43→20:29)
[2021-10-30] MEDS: ASCORBIC ACID 500 MG TAB PO SCH (07:43)
[2021-10-30] MEDS: ADVANCED PROBIOTIC 1250 MG CAPSULE PO SCH (07:43)
[2021-10-30 09:29] LABS: BUN Creatinine Ratio 29.4 (10-20); Calcium 9.3 mg/dl (8.5-10.1); Creatinine Clr Calc Pharmacy 103.7 ml/min; Est GFR (African American) 113.2 ml/min; Est GFR (Non-African American) 97.7 ml/min; Potassium 3.9 mmol/L (3.5-5.1)
--- NOTE | 2021-10-30 14:59 | Orthopedic Progress Note ---
Date of Service October 30, 2021 Assessment & Plan (1) Lumbar disc herniation with radiculopathy: Plan: At this time is somewhat difficult to discern whether she has a persistent CSF leak or her normal headaches. She does not appear to be that uncomfortable which would be atypical for a true CSF leak. She did tolerate sitting in a chair for several hours yesterday without incident. I would like to formalize physical therapy tomorrow and see how she does with transfers and ambulation. Admission and Anticipated Discharge Date Admission Date: October 24, 2021 Subjective Patient is tearful today and complaining of back pain. She states she was very active yesterday and this seemed to exacerbate her symptoms. She still notes headaches. She describes these as her typical migraine type headache. Physical Exam Physical Exam: On exam she is in the bed. She is sitting upright. She appears comfortable after a few minutes of discussion. She is neurologically intact lower extremities. Results & Data ([facility]) Vital Signs (Past 12 Hours) Vital Signs Temp Pulse Resp BP Pulse Ox 10/30/21 07:36 36.6 C 78 16 105/68 91
[2021-10-30] MEDS: DOCUSATE SODIUM/SENNA 50/8.6MG TAB PO SCH (20:27)
[2021-10-30] MEDS: TOPIRAMATE 100 MG TAB PO SCH (20:29)
[2021-10-30] MEDS: cloNIDine HCL 0.1 MG TAB PO SCH (20:29)
[2021-10-30] MEDS: traZODone HCL 100 MG TAB PO SCH (20:29)
[2021-10-31] MEDS: LEVOTHYROXINE SODIUM 75 MCG TABLET PO SCH (06:22)
[2021-10-31] MEDS: oxyCODONE HCL IR 5 MG TAB (IMMEDIATE RELEASE) PO PRN ×3 (06:36→20:07)
[2021-10-31] MEDS: ADVANCED PROBIOTIC 1250 MG CAPSULE PO SCH (09:37)
[2021-10-31] MEDS: PREGABALIN 150 MG CAP PO SCH ×2 (09:37→22:29)
[2021-10-31] MEDS: ASCORBIC ACID 500 MG TAB PO SCH (09:37)
[2021-10-31] MEDS: PANTOprazole 40 MG TAB PO SCH ×2 (09:37→22:28)
[2021-10-31] MEDS: ELETRIPTAN 20 MG PO PRN ×2 (09:40→14:31)
--- NOTE | 2021-10-31 13:45 | Orthopedic Progress Note ---
Date of Service October 31, 2021 Assessment & Plan (1) Lumbar disc herniation with radiculopathy: Plan: At this time we will continue with physical therapy tomorrow. If she tolerates this well we will anticipate discharge home Saturday or . Admission and Anticipated Discharge Date Admission Date: October 24, 2021 Subjective Patient's back pain and leg pain has improved. She is denying and headaches. She tolerated physical therapy. Physical Exam Physical Exam: On physical exam she has good strength testing appears very comfortable today. Results & Data ([facility]) Vital Signs (Past 12 Hours) Vital Signs Temp Pulse Resp BP Pulse Ox 10/31/21 08:08 36.9 C 80 18 118/77 92
--- NOTE | 2021-10-31 17:59 | Communication Note ---
Date of Service: October 31, 2021 Patient reports feeling better today. Very mild headache but there. She feels she did better with PT and movement today. She did mention she has been off Levothyroxine for about 3-4 months due to her TSH being normal. Did check her TSH and it was in normal range. Will discontinue the medication at this time. Patient's chronic medical conditions and she can continue her home medications on discharge. Hospitalists will monitor remotely however please do not hesitate to contact us for any questions or acute medical changes.
[2021-10-31] MEDS: cloNIDine HCL 0.1 MG TAB PO SCH (22:26)
[2021-10-31] MEDS: DOCUSATE SODIUM/SENNA 50/8.6MG TAB PO SCH (22:28)
[2021-10-31] MEDS: traZODone HCL 100 MG TAB PO SCH (22:29)
[2021-10-31] MEDS: TOPIRAMATE 100 MG TAB PO SCH (22:29)
[2021-11-01] MEDS: oxyCODONE HCL IR 5 MG TAB (IMMEDIATE RELEASE) PO PRN ×4 (02:33→21:36)
[2021-11-01] MEDS: ASCORBIC ACID 500 MG TAB PO SCH (08:30)
[2021-11-01] MEDS: ADVANCED PROBIOTIC 1250 MG CAPSULE PO SCH (08:30)
[2021-11-01] MEDS: PANTOprazole 40 MG TAB PO SCH ×2 (08:31→21:01)
[2021-11-01] MEDS: PREGABALIN 150 MG CAP PO SCH ×2 (08:33→21:01)
[2021-11-01] MEDS: ACETAMINOPHEN 500 MG TAB PO PRN (10:06)
--- NOTE | 2021-11-01 13:03 | Orthopedic Progress Note ---
Date of Service November 01, 2021 Assessment & Plan (1) Lumbar disc herniation with radiculopathy: Plan: At this time we will have her complete physical therapy today and tomorrow most likely discharge home tomorrow morning. Admission and Anticipated Discharge Date Admission Date: October 24, 2021 Subjective Patient is ambulating the halls. She denies headaches. States her leg pain is well improved. Back pain controlled. Physical Exam Physical Exam: Patient is ambulating well. Has good strength testing. Results & Data ([facility]) Vital Signs (Past 12 Hours) Vital Signs Temp Pulse Resp BP Pulse Ox 11/01/21 07:13 36.8 C 80 16 113/75 93
[2021-11-01] MEDS: cloNIDine HCL 0.1 MG TAB PO SCH (20:59)
[2021-11-01] MEDS: TOPIRAMATE 100 MG TAB PO SCH (21:01)
[2021-11-01] MEDS: DOCUSATE SODIUM/SENNA 50/8.6MG TAB PO SCH (21:01)
[2021-11-01] MEDS: traZODone HCL 100 MG TAB PO SCH (21:02)
[2021-11-02] MEDS: oxyCODONE HCL IR 5 MG TAB (IMMEDIATE RELEASE) PO PRN ×3 (04:21→13:48)
--- NOTE | 2021-11-02 08:25 | Orthopedic Progress Note ---
Date of Service November 02, 2021 Assessment & Plan (1) Lumbar disc herniation with radiculopathy: Plan: Patient has progressed well. Will obtain Doppler study to ensure she does not have a DVT. I suspect this is more muscle pain from disuse. If the Dopplers are negative we will plan for discharge home today. Admission and Anticipated Discharge Date Admission Date: October 24, 2021 Subjective Patient overall is markedly improved. She is noting some pain in her left calf however. She has been ambulating without difficulty. Physical Exam Physical Exam: On exam she has good strength testing. She does have some tenderness to palpation of the left calf. There is no erythema or swelling appreciated. Results & Data ([facility]) Vital Signs (Past 12 Hours) Vital Signs Temp Pulse Pulse Resp BP Pulse Ox 11/02/21 07:23 36.7 C 75 16 105/67 95 11/01/21 21:34 36.6 C 87 17 119/78 96 11/01/21 20:54 120/77
[2021-11-02] MEDS: PREGABALIN 150 MG CAP PO SCH (09:02)
[2021-11-02] MEDS: PANTOprazole 40 MG TAB PO SCH (09:02)
[2021-11-02] MEDS: ASCORBIC ACID 500 MG TAB PO SCH (09:02)
[2021-11-02] MEDS: ADVANCED PROBIOTIC 1250 MG CAPSULE PO SCH (09:02)
[2021-11-02] MEDS: ELETRIPTAN 20 MG PO PRN (09:03)
--- NOTE | 2021-11-02 10:14 | Ultrasound Report ---
BILATERAL LOWER EXTREMITY VENOUS DOPPLER HISTORY: Left leg pain COMPARISON STUDY: None. FINDINGS: There is normal compressibility, flow, and augmentation within the bilateral lower extremit y deep venous systems. Thrombosed superficial veins within the left calf which are approximately 4.6 cm from the popliteal vein. IMPRESSION: 1. No DVT within the right or left lower extremity. 2. Thrombosed superficial veins within the left calf which are approximately 4.6 cm from the poplitea l vein. ACT 112: Negative or not required by law. Electronically signed by: Frankie Banda M.D. 11/02/2021 10:12 AM
--- NOTE | 2021-11-11 08:59 | Discharge Summary ---
Date of Service November 11, 2021 Admission HPI Per Admitting Provider This is a 51-year-old female known to us from having seen us in the office. She has complaints of worsening back and right leg pain markedly limiting her quality of life. She describes breakaway weakness and a recent episode of urinary incontinence. She is undergone extensive course of nonoperative care including multiple epidural injections without long-term relief. She is sensitive to medications and limits her self to tramadol for pain control. Discharge Data Consultations 10/23/21 12:24 ED Decision to Admit Stat 10/24/21 16:34 Consult Hospitalist Routine Procedures Performed Operation Date: 10/25/21 09:20 Actual Procedures p L5-S1 Decompression Fusion(Not Applicable) - Harry Fabian, [facility] Course (1) Lumbar disc herniation with radiculopathy: Patient is a pleasant 51-year-old female who presented to the emergency room with acute pain. She was unable to stand and walk secondary to her pain. She was admitted to the medical service and we are consulted. On 10/25/2021 she had undergone a lumbar decompression at L5-S1 in conjunction with an instrumented fusion. This is a former Dr. Fabian under general anesthesia. She left the operating room with DAVID drain and Camarena in place and was transferred to PACU in stable condition. Throughout her hospital course her calves remain supple nontender abdomen remains supple and nontender. She is seen by physical therapy for ambulation and gait training. On postop day #3 she was deemed safe for home discharge. Discharge instructions were avoid any bending lifting or twisting. She is avoid lifting anything heavier than 5 to 7 pounds. They are to change her dressing once daily until there is no drainage once there is no drainage she may begin showering. She is to follow-up with our office approximately 2 weeks out from her surgery or sooner if shops any increased pain, drainage from incision, fevers or chills.
--- NOTE | 2021-11-14 08:49 | Coding Query ---
CODING QUERY To promote full compliance with coding requirements relating to patient care, provider participation is requested in all cases of medical records coder uncertainty. Please assist us with the question(s) below: Coding Question(s): 1. The Operative Report documents, "I quickly identified evidence of dural ectasia limiting our ability to safely decompress the entire level. I did place a patch of DuraGen over the dural ectasia and and covered it with DuraSeal". Please specify below, regarding the POA (present on admission) status of Dural Ectasia. (x ) Present on admission ( ) Not present on admission - occurred during surgery ( ) Other: Please Specify 2. There is documentation on the Hospitalist Progress Note on 10/25 of, "Per RN, she had a severe spinal headache, she was medicated with a dose of IV Dilaudid", and the Hospitalist Progress Note on 10/26 documents, " Headache: Plan: Complex Migraine headache v. Spinal headache from surgery (d/t dural patch)", and the Hospitalist Progress Note on 10/28 documents, "Complex Migraine headache v. Spinal headache from surgery (d/t dural patch) and/or tension component", and the Orthopedic Progress Note on 10/30 documents, "At this time is somewhat difficult to discern whether she has a persistent CSF leak or her normal headaches. She does not appear to be that uncomfortable which would be atypical for a true CSF leak", and, "She still notes headaches. She describes these as her typical migraine type headache". Please specify below, in your clinical opinion, regarding the headache. ( x) headache likely due to complex Migraine ( ) headache likely due to Spinal Headache from surgery (d/t dural patch) ( ) headache likely due to Spinal Headache from Surgery - Other, Please Specify ( ) headache likely due to CSF leak. Please specify further below: ( ) CSF leak postoperative due to complication ( ) CSF leak spontaneous ( ) CSF leak other: Please Specify ( ) headache likely due to Tension Headache ( ) headache likely due to Other: Please Specify Physician's Response(s): Thank you Selina Marcano Principal Diagnosis: "that condition established after study, to be chiefly responsible for occasioning the admission of the patient to the hospital for care." Co-Existing Principal Diagnosis: "when two or more diagnoses equally meet the criteria for principal diagnosis as determined by the circumstances of admission, diagnostic work up, and/or therapy provided, and the Alphabetic Index, Tabular List, or another coding guideline does not provide sequencing direction, any one of the diagnoses may be sequenced first." "When the physician has documented what appears to be a current diagnosis in the body of the record, but has not included the diagnosis in the final diagnostic statement, the physician should be asked whether the diagnosis should be added." (Source [facility]oding [facility] 2 QTR90. p3-4) KAITLYNN
== END 2021-11-02 15:31 | disposition home or self-care (01) | DRG 460 ==
LOC: EDINP 08:55 → ED 08:55 → EDINP 20:45 → 3E 10-24 20:36

== ENCOUNTER 2025-10-18 14:31 | Observation (INO) ==
[2025-10-18 15:28] LABS: Alanine Aminotransferase 16 U/L (7-52); Albumin Globulin Ratio 1.5 (0.9-2); Albumin Level 5.1 gm/dl (3.4-5.0); Alkaline Phosphatase 96 U/L (34-104); Anion Gap 12 (3-11); Bilirubin,Total 1.1 mg/dl (0.2-1.0); Blood Urea Nitrogen 21 mg/dl (6-23); Calcium 10.5 mg/dl (8.6-10.3); Carbon Dioxide 24 mmol/L (21-32); Chloride 109 mmol/L (98-107); Globulin 3.4 gm/dl (2.5-4.0); Glucose 112 mg/dl (70-99(Fasting)); Lipase 20 U/L (11-82); Potassium 4.1 mmol/L (3.5-5.1); Sodium 145 mmol/L (136-145); Total Protein 8.5 gm/dl (6.0-8.3)
--- NOTE | 2025-10-18 15:28 | Emergency Department Note ---
Impression & Plan Intractable nausea and vomiting, Abdominal pain, Intussusception ED Provider Note CHIEF COMPLAINT: Abdominal pain HISTORY OF PRESENTING ILLNESS: The patient is a 55-year-old female with hx of hepatic vein thrombosis on chronic antigoacualtion, who arrives to the emergency department for evaluation of vomiting, and abdominal pain. Patient states she is also having urinary frequency. She reports she does have a history of urinary tract infections. She states she has had fevers, however not today. She states symptoms began approximately 2 days ago. She is afebrile with stable vital signs. REVIEW OF SYSTEMS: See HPI for pertinent positives and pertinent negatives. ALLERGIES: See below MEDICATIONS: See below PAST MEDICAL HISTORY: See below PHYSICAL EXAM: VITALS: Vitals are noted on the nurse's note and reviewed by myself. Vital signs stable. GENERAL: 55-year-old female, in no acute distress, nondiaphoretic, well- developed well-nourished. SKIN: The skin was without rashes, erythema, edema, or bruising. HEART: Regular rate and rhythm without murmurs gallops or rubs. LUNGS: Clear to auscultation bilaterally without wheezes, rales or rhonchi. No retractions or accessory muscle use. ABDOMEN: Positive bowel sounds x 4. Soft, TTP left mid to lower abdomen, with no rebound TTP or guarding. MUSCULOSKELETAL: No muscle atrophy, erythema, or edema noted. Normal gait. Strength 5/5 throughout. NEURO: Patient was alert and oriented to person place and time. No focal neurological deficits. DIFFERENTIAL DIAGNOSIS: Appendicitis, ovarian cyst, ovarian torsion, infections, diverticulitis, UTI, obstruction, mesenteric ischemia, aortic pathology, inflammatory bowel disease, renal colic, PUD, pancreatitis, biliary pathology, hernia, volvulus, constipation, as well as other pathologies. ED COURSE AND MEDICAL DECISION MAKING: MEDICATIONS GIVEN: 4mg IVP Zofran. 1L NSS bolus INTERPRETATION OF LABS: I interpreted the labs with full lab results as below in the lab section of this note. Pertinent lab results discussed in the MDM section below. INTERPRETATION OF IMAGING: Imaging studies were interpreted by myself and read by radiology as per the imaging section of this note. CONSULTATIONS: General surgery MDM SUMMARY: The patient is a pleasant, 55-year-old female who arrives to the emergency department for evaluation of the above-stated complaint. Saline lock was established, lab work was obtained. CBC shows no leukocytosis, with slightly elevated hemoglobin and hematocrit, likely due to dehydration. CMP shows no concerning findings. Urinalysis shows 2+ ketones, with trace leukocyte esterase, negative bacteria. Due to patient's left mid to lower quadrant abdominal tenderness to palpation, with persistent nausea and vomiting, CT imaging of the abdomen and pelvis with IV contrast was obtained. CT imaging does show findings consistent with likely left mid abdomen intussusception. Patient was provided 1 L NSS bolus, as well as 4 mg IV Zofran. I spoke with general surgery, who recommended conservative management, with n.p.o. status, and GI consultation. Patient continued to remain nauseated, however not currently vomiting. The patient will require admission to the hospitalist services for further evaluation and management of CT imaging findings, and management of nausea and vomiting, since patient is unable to keep down food or fluids currently. Patient will remain n.p.o., and until further advised. Please refer to the hospitalist documentation for further patient workup and care. DIAGNOSIS: Intractable nausea and vomiting, intussusception, abdominal pain The chart was completed utilizing [employer] Speech voice recognition software. Grammatical errors, random word insertions, pronoun errors, and incomplete sentences are an occasional consequence of this system due to software limitations, ambient noise, and hardware issues. Any formal questions or concerns about the content, text, or information contained within the body of this dictation should be directly addressed to the provider for clarification. 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 cava, per hem/onc remain on anticoag life time Irritable bowel syndrome with diarrhea Benign essential hypertension (Chronic) Cervical disc disease (Chronic) Chronic reflux esophagitis (Chronic) Depression (Chronic) Disc degeneration, lumbar (Chronic) Generalized anxiety disorder (Chronic) Pernicious anemia (Chronic) Vitamin B12 deficiency (Chronic) Vitamin D deficiency (Chronic) Allergic rhinitis Iron deficiency anemia Hypokalemia Intractable neuropathic pain of lumbosacral origin (Acute) Right lumbar radiculitis (Acute) Lumbar disc herniation with radiculopathy Morbid obesity Tinea corporis History of lumbar fusion 10/24/21 L5-S1 decompression and fusion Dr richards Migraine Fibromyalgia GERD (gastroesophageal reflux disease) Diabetes mellitus (Chronic) Hypothyroidism Neurodermatitis (Chronic) Lumbar spinal stenosis (Chronic) Insomnia (Chronic) Medical History Hepatic abscess 2017 and again 01/18. LGSIL on Pap smear of cervix Anxiety and depression History of COVID-19 08/11/22>SYMPTOMS RESOLVED History of blood clots HEPATIC VEIN BLOOD CLOT ON LIVER>DX 2017 (SURGERY REQUIRED) NO BLOOD THINNERS FOR 3 YEARS Chronic diarrhea Asthma LAST USED RESCUE INHALER>6-8 WEEKS AGO Arthritis Tinea corporis Migraine, unspecified, not intractable, without status migrainosus PCO (polycystic ovaries) Iron deficiency Surgical History Previous back surgery Family history of reaction to anesthesia MOTHER>SLOW TO WAKE UP History of anesthesia reaction AWARENESS DURING SURGERY IN PAST History of esophagogastroduodenoscopy (EGD) History of tooth extraction Fusion of spine LUMBAR FUSION History of surgery of liver HEPATIC VEIN BLOOD CLOT REMOVAL History of repair of rotator cuff ? SIDE History of gastric surgery 2001 History of colonoscopy S/P endometrial ablation History of cholecystectomy H/O gastric bypass Family History Other Anemia Premature labor Twin Denies family history of Cervical cancer Ovarian cancer Myocardial infarction Breast cancer Colorectal cancer Uterine cancer Social History Smoking Status: Never smoker Tobacco Type: Cigarettes Age Started Using Tobacco: 17; Age Quit Using Tobacco: 19; packs per day: 1; Second Hand Exposure: Yes ( SMOKES); Do You Dip or Chew Tobacco: No; Hx Alcohol Use: Yes Alcohol type: beer and wine Alcohol Intake Frequency: Monthly or Less Hx Substance Use: No Preferred Language: [place] Communication Ability: Effective Visual Impairment: Limited Hearing Ability: Normal Video Effects Editor Required: No Beliefs That Will Affect Care: None marital status: Current Living Situation: Spouse current occupational status: disabled How many Children do You have: 3 Feels Safe at Home: Yes Childhood Exposure to Second-Hand Smoke: Yes Diet: regular caffeine: Yes during the past year weight has: remained stable Dental Care, Regularly: No Physical Activity Frequency: 1-2 Times per Week Physical Activity Frequency Comment: walking/cleaning Seatbelt Use: always Sunscreen Use: Yes (sometimes) Do you think of yourself as: straight/heterosexual Sexual Activity: has been sexually active, but not for at least 12 months Gender Identity: Female Assistive Devices: Walker Allergies Allergies Allergy/AdvReac Type Severity Reaction Status Date / Time Penicillins Allergy Severe HIVES/SEIZU Verified 10/26/25 08:34 RES Sulfa (Sulfonamide Allergy Severe HIVES/SEIZU Verified 10/26/25 08:34 Antibiotics) RES latex Allergy Mild rash Verified 10/26/25 08:34 metformin AdvReac Severe GI upset Verified 10/26/25 08:34 even with ER Home Meds Home Medications Medication Instructions Recorded Confirmed cyanocobalamin (vitamin B-12) 1,000 mcg IM MONTHLY 05/14/19 10/26/25 1,000 mcg/mL injection kit triamcinolone acetonide 0.1 % 1 applic topical BID PRN Skin 02/08/21 10/26/25 topical cream Irritation diclofenac sodium 1 % topical gel 2 g topical QID 01/05/24 10/26/25 (Arthritis Pain (diclofenac)) hydrocortisone 2.5 % topical cream 1 applic [place] BID PRN hemorrhoids 01/05/24 10/26/25 with perineal applicator (Anusol-HC) menthol 0.44 %-zinc oxide 20.6 % 1 appln topical QID PRN skin 01/05/24 10/26/25 topical ointment (Calmoseptine) irritation acetaminophen 325 mg tablet 650 mg PO Q4 PRN Fever Or Pain 01/27/24 10/26/25 cholecalciferol (vitamin D3) 125 5,000 unit PO DAILY 01/27/24 10/26/25 mcg (5,000 unit) capsule lactobacillus combination no.4 3 3,000 mmu cells PO QAM 01/27/24 10/26/25 billion cell capsule (Probiotic) pediatric multivitamin no.76 1 tab PO DAILY 01/27/24 10/26/25 (Flintstones Complete chewable tablet) prochlorperazine maleate 10 mg 10 mg PO Q8H PRN nausea and 07/20/24 10/26/25 tablet (Compazine) vomiting estradiol 0.01% (0.1 mg/gram) 1 g vaginal 2XWK PRN Irritation 02/01/25 10/26/25 vaginal cream nystatin 100,000 unit/gram topical 1 applic topical BID PRN Flare 02/01/25 10/26/25 powder nystatin-triamcinolone 100,000 1 applic topical BID PRN Flare 02/01/25 10/26/25 unit/g-0.1 % topical cream Previous Rx's Medication Instructions Recorded blood sugar diagnostic (Accu-Chek #100 ea 02/14/24 Guide test strips) lancets (Accu-Chek Softclix #200 ea 02/14/24 Lancets) albuterol sulfate 90 mcg/actuation 2 puff inhalation Q6H PRN 09/21/24 aerosol inhaler Shortness Of Breath Or Wheezing #6.7 grams silver sulfadiazine 1 % topical 1 applic topical BID PRN wound 09/21/24 cream (Silvadene) healing #50 grams apixaban 5 mg tablet (Eliquis) 5 mg PO BID #60 tabs 01/08/25 blood-glucose sensor (Dexcom G7 #3 ea 02/09/25 Sensor device) clonidine HCl 0.1 mg tablet 0.15 mg (1.5 x 0.1 mg) PO HS #135 02/15/25 tabs topiramate 100 mg tablet 100 mg PO HS #90 tabs 04/06/25 omeprazole 40 mg capsule,delayed 40 mg PO BID #180 caps 04/22/25 release trazodone 100 mg tablet 150 mg (1.5 x 100 mg) PO HS #45 05/20/25 tabs colestipol 1 gram tablet 1 g PO BID PRN Stomach irritation 06/30/25 #60 tabs pregabalin 150 mg capsule 150 mg PO BID #60 caps 07/14/25 clarithromycin 500 mg tablet 500 mg PO BID #14 tabs 08/06/25 fluticasone propionate 50 1 spray intranasal BID #16 grams 08/06/25 mcg/actuation nasal spray,suspension nebulizer and tubing #1 ea 08/06/25 albuterol sulfate 2.5 mg/3 mL 2.5 mg (3 mL) inhalation QID PRN 10/15/25 (0.083 %) solution for nebulization shortness of breath or wheezing #90 mL codeine 10 mg-guaifenesin 100 mg/5 5 ml PO Q6H PRN cough #118 mL 10/15/25 mL oral liquid tramadol 50 mg tablet 50 mg PO DIRECTED PRN pain #90 10/25/25 tabs tirzepatide 2.5 mg/0.5 mL 2.5 mg (0.5 mL) subcut .COMPLEX #2 10/26/25 subcutaneous pen injector mL (Malena) Results & Data (ED) Vital Signs Vital Signs - 24 hr 10/18/25 14:33 10/18/25 16:31 Pulse Rate [Radial] 80 Pulse Rhythm [Radial] Regular Respiratory Rate 16 Respiratory Effort / Characteristics Non-Labored Respiratory Depth Normal Respiratory Pattern Regular Blood Pressure [Left Arm] 119/82 Blood Pressure Mean [Left Arm] 94 Pulse Oximetry 97 Oxygen Delivery Method Room Air Sepsis Recent Fever Within 48 Hours No Sepsis New/Unexplained Change in Mental Status N/A Sepsis Action Taken by Nursing No Action Required Home Medications Current Medication List: was personally reviewed by me Laboratory Data Attestation: I reviewed the patient's lab results. 10/19/25 09:00 10/19/25 09:00 Lab Results 10/18/25 10/18/25 10/18/25 Range/Units 14:50 14:56 20:05 WBC 7.83 (4.8-10.8) K/ul RBC 5.71 H (4.20-5.40) M/uL Hgb 17.1 H (12.0-16.0) g/dL Hct 50.3 H (37.0-47.0) % MCV 88.1 (80.0-100.0) fL MCH 29.9 (25.0-34.0) pg MCHC 34.0 (32.0-36.0) g/dL RDW Std Deviation 37.3 (36.4-46.3) fL RDW Coeff of Ana Paula 11.8 (11.5-14.5) % Plt Count 337 (130-400) K/uL MPV 8.7 L (9.4-12.4) fL Immature Gran % (Auto) 0.6 % Neut % (Auto) 82.6 % Lymph % (Auto) 11.9 % Walsh % (Auto) 4.3 % Eos % (Auto) 0.0 % Baso % (Auto) 0.6 % Neut # (Auto) 6.46 (1.40-6.50) K/uL Lymph # (Auto) 0.93 L (1.20-3.40) K/uL Walsh # (Auto) 0.34 (0.11-0.59) K/uL Eos # (Auto) 0.00 (0.00-0.50) K/uL Baso # (Auto) 0.05 (0.00-0.20) K/uL Immature Gran # (Auto) 0.05 (0.01-0.20) K/uL Sodium 145 (136-145) mmol/L Potassium 4.1 (3.5-5.1) mmol/L Chloride 109 H (98-107) mmol/L Carbon Dioxide 24 (21-32) mmol/L Anion Gap 12 H (3-11) BUN 21 (6-23) mg/dl Creatinine 0.85 (0.6-1.2) mg/dl Est Cr Clr Drug Dosing Not Reportable eGFR 81.36 BUN/Creatinine Ratio 24.7 H (10-20) Glucose 112 H (70-99(Fasting)) mg/dl Calcium 10.5 H (8.6-10.3) mg/dl Total Bilirubin 1.1 H (0.2-1.0) mg/dl AST 17 (13-39) U/L ALT 16 (7-52) U/L Alkaline Phosphatase 96 (34-104) U/L Total Protein 8.5 H (6.0-8.3) gm/dl Albumin 5.1 H (3.4-5.0) gm/dl Globulin 3.4 (2.5-4.0) gm/dl Albumin/Globulin Ratio 1.5 (0.9-2) Lipase 20 (11-82) U/L HCG, Qual Negative (Negative) Urine Color Dark Yellow Urine Appearance Clear (Clear) Urine pH 5.5 (4.5-7.5) Ur Specific Bon[place]arte 1.027 (1.000-1.030) Urine Protein 1+ H (Negative) Urine Glucose (UA) Negative (Negative) Urine Ketones 2+ H (Negative) Urine Blood Negative (Negative) Urine Nitrite Negative (Negative) Urine Bilirubin 2+ H (Negative) Urine Urobilinogen Negative (Negative) Ur Leukocyte Esterase 1+ H (Negative) Urine WBC (Auto) 0-5 (0-5) /hpf Urine RBC (Auto) 0-2 (0-2) /hpf U Hyaline Cast (Auto) 6-10 H (0-2) /lpf U Epithel Cells (Auto) 0-2 (0-2) /hpf Urine Bacteria (Auto) None Seen (None Seen) Hyaline Casts Present A (None Presnt) /lpf Urine Mucus Present A (None Prsent) Urine Comment Administered Medications Discontinued Medications Acetaminophen (Acetaminophen 325 Mg Tab) 650 mg PO Q4 PRN PRN Reason: Fever Or Pain Stop: 11/17/25 21:09 Last Admin: 10/19/25 07:45 Dose: 650 mg Documented By: Admin: 10/18/25 21:47 Dose: 650 mg Documented By: OLGA Clonidine HCl (Clonidine Hcl 0.1 Mg Tab) 0.15 mg PO NOW ONE Stop: 10/18/25 22:31 Last Admin: 10/19/25 00:23 Dose: 0.15 mg Documented By: scott Colestipol HCl (Colestipol Hcl 1 Gm Tab) 1 gm PO BID FLAVIO Stop: 11/18/25 12:29 Last Admin: 10/19/25 13:01 Dose: 1 gm Documented By: REUBEN Fluticasone Propionate (Fluticasone Propionate Na Spr 16 Gm Btl) 1 sprays SARAH BID FLAVIO Stop: 11/17/25 21:09 Last Admin: 10/19/25 07:46 Dose: 1 sprays Documented By: Admin: 10/19/25 00:20 Dose: 1 sprays Documented By: scott Sodium Chloride (Nss) 1,000 mls @ 999 mls/hr IV .Q1H1M STA Stop: 10/18/25 16:55 Last Infusion: 10/18/25 20:20 Dose: Infused Documented By: Admin: 10/18/25 17:46 Dose: 999 mls/hr Documented By: SHERLYN Lactated Ringer's (Lr) 1,000 mls @ 80 mls/hr IV .[id number] FLAVIO Stop: 10/19/25 21:59 Last Admin: 10/19/25 11:52 Dose: 80 mls/hr Documented By: Infusion: 10/19/25 10:37 Dose: Infused Documented By: Admin: 10/18/25 22:07 Dose: 80 mls/hr Documented By: OLGA Prochlorperazine 10 mg/ (Syringe) 10 mls @ 5 mls/min IV Q6H PRN PRN Reason: Nausea And Vomiting Stop: 11/17/25 21:09 Last Admin: 10/19/25 03:48 Dose: 5 mls/min Documented By: SUZI Prochlorperazine 10 mg/ (Syringe) 10 mls @ 5 mls/min IV ONE ONE Stop: 10/18/25 21:14 Last Admin: 10/18/25 22:07 Dose: 5 mls/min Documented By: OLGA Insulin Aspart (Insulin Aspart Per Unit Charge) 0 units SC ACHS FLAVIO Stop: 11/17/25 21:09 Last Admin: 10/18/25 23:38 Dose: Not Given Documented By: scott Co-signed By: SUZI Insulin Aspart (Insulin Aspart Per Unit Charge) 0 units SC Q6 FLAVIO Stop: 11/18/25 05:59 Last Admin: 10/19/25 17:21 Dose: Not Given Documented By: Admin: 10/19/25 12:15 Dose: Not Given Documented By: Admin: 10/19/25 05:57 Dose: Not Given Documented By: scott Co-signed By: SUZI Ioversol (Optiray 320 100ml) 93 ml IV ONCE ONE Stop: 10/18/25 17:58 Last Admin: 10/18/25 17:57 Dose: 93 ml Documented By: SHEILA Miscellaneous (Patient's Height &/Or Weight Needed) 1 each N/A Q2H STA Stop: 10/18/25 21:22 Last Admin: 10/18/25 23:38 Dose: 1 each Documented By: scott Ondansetron HCl (Ondansetron Inj 2 Mg/Ml 2 Ml Vial) 4 mg IV NOW STA Stop: 10/18/25 15:56 Last Admin: 10/18/25 17:46 Dose: 4 mg Documented By: SHERLYN Pregabalin (Pregabalin 150 Mg Cap) 150 mg PO BID FLAVIO Stop: 11/17/25 21:09 Last Admin: 10/19/25 07:46 Dose: 150 mg Documented By: Admin: 10/18/25 23:37 Dose: 150 mg Documented By: scott Topiramate (Topiramate 100 Mg Tab) 100 mg PO HS FLAVIO Stop: 11/17/25 21:09 Last Admin: 10/18/25 22:11 Dose: 100 mg Documented By: OLGA Tramadol HCl (Tramadol Hcl 50 Mg Tablet) 50 mg PO TID PRN PRN Reason: Moderate Pain (Scale 4, 5, 6) Stop: 11/17/25 21:09 Last Admin: 10/19/25 03:43 Dose: 50 mg Documented By: SUZI Trazodone HCl (Trazodone Hcl 50 Mg Tab) 150 mg PO HS FLAVIO Stop: 11/17/25 21:09 Last Admin: 10/18/25 22:13 Dose: 150 mg Documented By: OLGA Imaging Data Attestation: I personally reviewed and interpreted this imaging study as follows: Radiologist's Impression: Abdomen/Pelvis CT 10/18/25 15:55 Clinical History: Left lower quadrant pain Technique: Axial computed tomography images were obtained of the abdomen and pelvis after the administration of intravenous contrast. Comparison is made to the prior CT dated 02/01/2025. Findings: The liver is overall of normal size, attenuation, and contour with no sign of cirrhosis or significant fatty infiltration. No liver mass lesion is seen. The portal vein is patent. The gallbladder has been removed. No bile duct dilatation is noted. The spleen is of normal size. No focal splenic lesion is evident. The pancreas appears normal with no sign of acute or chronic pancreatitis and no mass lesion noted. The pancreatic duct is of normal caliber. The adrenal glands appear unremarkable. No definite renal or proximal ureteral calculi are seen on this contrast-enhanced study. There is no hydronephrosis or perinephric stranding. No renal mass lesion is identified. The aorta is of normal caliber. No abdominal adenopathy is seen. Postsurgical changes are seen of gastric bypass surgery. There is a short segment intussusception involving small bowel in the left midabdomen. There is no sign of small bowel obstruction. The colon appears unremarkable. There is no sign of appendicitis. No free intraperitoneal fluid or air is identified. No distal ureteral or bladder calculi are seen. The bladder is decompressed. The iliac arteries are of normal caliber. No pelvic adenopathy is noted. There is mild right lung base atelectasis. There is an L5-S1 fusion. No fracture is identified. No focal osseous lesion is seen Impression: 1. Right lung base atelectasis 2. Small bowel intussusception in the left midabdomen. Intussusception can sometimes be seen as a transient finding. There is no sign of associated obstruction Electronically signed by Arpit Borthers 10-18-2025 6:15 PM Discharge Plan Visit Data Chief Complaint: Abdominal Pain Stated Complaint: VOMIT, ABD PAIN ED Provider: Jay Lechuga ED Midlevel Provider: Rosanne Ashton Discharge Problem: Intractable nausea and vomiting, Abdominal pain, Intussusception Patient Disposition: Admitted As Inpatient Condition: Fair Discharge Instructions Interventions: ED Discharge Assessment Last Done: 10/18/25 22:21
[2025-10-18 15:31] LABS: Appearance Urine Clear (Clear); Bacteria Urine Automated None Seen (None Seen); Epithelial Cell Urine Auto 0-2 /hpf (0-2); Glucose Urine UA Negative (Negative); RBC Urine Automated 0-2 /hpf (0-2); WBC Urine Automated 0-5 /hpf (0-5)
[2025-10-18 16:26] LABS: Hematocrit (blood only) 50.3 % (37.0-47.0); Hemoglobin 17.1 g/dL (12.0-16.0); Immature Granulocytes # (auto) 0.05 K/uL (0.01-0.20); Immature Granulocytes % (auto) 0.6 %; Mean Corpuscular Hemoglobin 29.9 pg (25.0-34.0); Mean Corpuscular Volume 88.1 fL (80.0-100.0); Platelet Count 337 K/uL (130-400); RDW Standard Deviation 37.3 fL (36.4-46.3); Red Blood Count 5.71 M/uL (4.20-5.40); White Blood Count 7.83 K/ul (4.8-10.8)
[2025-10-18] MEDS: ONDANSETRON INJ 2 MG/ML 2 ML VIAL IV STA (17:46)
[2025-10-18] MEDS: SODIUM CHLORIDE 0.9% 1,000 ML IV STA (17:46)
[2025-10-18] MEDS: OPTIRAY 320 100ml IV ONE (17:57)
--- NOTE | 2025-10-18 18:15 | CT Scan Report ---
Clinical History: Left lower quadrant pain Technique: Axial computed tomography images were obtained of the abdomen and pelvis after the administration of intravenous contrast. Comparison is made to the prior CT dated 02/01/2025. Findings: The liver is overall of normal size, attenuation, and contour with no sign of cirrhosis or significant fatty infiltration. No liver mass lesion is seen. The portal vein is patent. The gallbladder has been removed. No bile duct dilatation is noted. The spleen is of normal size. No focal splenic lesion is evident. The pancreas appears normal with no sign of acute or chronic pancreatitis and no mass lesion noted. The pancreatic duct is of normal caliber. The adrenal glands appear unremarkable. No definite renal or proximal ureteral calculi are seen on this contrast-enhanced study. There is no hydronephrosis or perinephric stranding. No renal mass lesion is identified. The aorta is of normal caliber. No abdominal adenopathy is seen. Postsurgical changes are seen of gastric bypass surgery. There is a short segment intussusception involving small bowel in the left midabdomen. There is no sign of small bowel obstruction. The colon appears unremarkable. There is no sign of appendicitis. No free intraperitoneal fluid or air is identified. No distal ureteral or bladder calculi are seen. The bladder is decompressed. The iliac arteries are of normal caliber. No pelvic adenopathy is noted. There is mild right lung base atelectasis. There is an L5-S1 fusion. No fracture is identified. No focal osseous lesion is seen Impression: 1. Right lung base atelectasis 2. Small bowel intussusception in the left midabdomen. Intussusception can sometimes be seen as a transient finding. There is no sign of associated obstruction Electronically signed by Arpit Brothers 10-18-2025 6:15 PM
[2025-10-18 20:44] LABS: Pregnancy Test, Serum Negative (Negative)
--- NOTE | 2025-10-18 20:52 | History & Physical Report ---
Date of Service October 18, 2025 Assessment & Plan (1) Small bowel intussusception: (2) Abdominal pain with vomiting: (3) Hepatic vein thrombosis: (4) Chronic anticoagulation: Plan The patient is a 55-year-old female with past medical history including recurrent urinary tract infections, hepatic vein thrombosis, chronic anticoagulation, IBS with diarrhea, hypertension, chronic reflux esophagitis, depression, generalized anxiety disorder, pernicious anemia, vitamin D deficiency, migraine, fibromyalgia, GERD, diabetes mellitus, lumbar spinal stenosis with radiculopathy, and hypothyroidism. She presents to the emergency department with complaints of abdominal pain, nausea and vomiting, fevers, and urinary frequency symptoms that began 2 days ago, and have persisted. Workup in the emergency department included CT scan of abdomen pelvis which suggested small bowel intussusception, and changes consistent with her known history of gastric bypass. From the ED she received the following: Normal saline 1 L fluid bolus, Zofran 4 mg IV. ED spoke with general surgery, who recommended GI evaluation. GI phone consult suggest patient be admitted to medical service, and being kept n.p.o., and treated conservatively. #Small bowel intussusception/abdominal pain with vomiting/history of gastric bypass- As noted on CT scan NPO except medications Status post 1 L normal saline bolus from the ED LR at 80 mL/h Pantoprazole 40 mg IV twice daily Compazine 10 mg IV every 6 hours as needed Consult gastroenterology #Hepatic vein thrombosis- Hold apixaban this evening until determined no procedure necessary, and then try to resume in the AM. #Diabetes mellitus/weight management- Hold semaglutide Placed on Accu-Cheks with NovoLog SSI #Asthma- Continue albuterol HFA 2 puffs every 6 hours as needed #Hypertension- Continue clonidine #Generalized anxiety disorder- Continue clonidine, pregabalin, topiramate, and trazodone. History of Present Illness Primary Care Provider: JOSEFINA Maldonado The patient is a 55-year-old female with past medical history including recurrent urinary tract infections, hepatic vein thrombosis, chronic anticoagulation, IBS with diarrhea, hypertension, chronic reflux esophagitis, depression, generalized anxiety disorder, pernicious anemia, vitamin D deficiency, migraine, fibromyalgia, GERD, diabetes mellitus, lumbar spinal stenosis with radiculopathy, and hypothyroidism. She presents to the emergency department with complaints of abdominal pain, nausea and vomiting, fevers, and urinary frequency symptoms that began 2 days ago, and have persisted. Workup in the emergency department included CT scan of abdomen pelvis which suggested small bowel intussusception, and changes consistent with her known history of gastric bypass. From the ED she received the following: Normal saline 1 L fluid bolus, Zofran 4 mg IV. ED spoke with general surgery, who recommended GI evaluation. GI phone consult suggest patient be admitted to medical service, and being kept n.p.o., and treated conservatively. Allergies Allergy/AdvReac Type Severity Reaction Status Date / Time Penicillins Allergy Severe HIVES/SEIZU Verified 10/15/25 13:26 RES Sulfa (Sulfonamide Allergy Severe HIVES/SEIZU Verified 10/15/25 13:26 Antibiotics) RES latex Allergy Mild rash Verified 10/15/25 13:26 metformin AdvReac Severe GI upset Verified 10/15/25 13:26 even with ER Home Medications Medication Instructions Recorded Confirmed Type cyanocobalamin (vitamin B-12) 1,000 mcg IM MONTHLY 05/14/19 10/15/25 History 1,000 mcg/mL injection kit triamcinolone acetonide 0.1 % 1 applic topical BID PRN Skin 02/08/21 10/15/25 History topical cream Irritation diclofenac sodium 1 % topical gel 2 g topical QID 01/05/24 10/15/25 History (Arthritis Pain (diclofenac)) hydrocortisone 2.5 % topical cream 1 applic SD BID PRN hemorrhoids 01/05/24 10/15/25 History with perineal applicator (Anusol-HC) menthol 0.44 %-zinc oxide 20.6 % 1 appln topical QID PRN skin 01/05/24 10/15/25 History topical ointment (Calmoseptine) irritation acetaminophen 325 mg tablet 650 mg PO Q4 PRN Fever Or Pain 01/27/24 10/15/25 History cholecalciferol (vitamin D3) 125 5,000 unit PO DAILY 01/27/24 10/18/25 History mcg (5,000 unit) capsule lactobacillus combination no.4 3 3,000 mmu cells PO QAM 01/27/24 10/18/25 History billion cell capsule (Probiotic) pediatric multivitamin no.76 1 tab PO DAILY 01/27/24 10/18/25 History (Flintstones Complete chewable tablet) blood sugar diagnostic (Accu-Chek #100 ea 02/14/24 10/15/25 Rx Guide test strips) lancets (Accu-Chek Softclix #200 ea 02/14/24 10/15/25 Rx Lancets) prochlorperazine maleate 10 mg 10 mg PO Q8H PRN nausea and 07/20/24 10/15/25 History tablet (Compazine) vomiting albuterol sulfate 90 mcg/actuation 2 puff inhalation Q6H PRN 09/21/24 10/15/25 Rx aerosol inhaler Shortness Of Breath Or Wheezing #6.7 grams silver sulfadiazine 1 % topical 1 applic topical BID PRN wound 09/21/24 10/15/25 Rx cream (Silvadene) healing #50 grams apixaban 5 mg tablet (Eliquis) 5 mg PO BID #60 tabs 01/08/25 10/18/25 Rx estradiol 0.01% (0.1 mg/gram) 1 g vaginal 2XWK PRN Irritation 02/01/25 10/15/25 History vaginal cream nystatin 100,000 unit/gram topical 1 applic topical BID PRN Flare 02/01/25 10/15/25 History powder nystatin-triamcinolone 100,000 1 applic topical BID PRN Flare 02/01/25 10/15/25 History unit/g-0.1 % topical cream blood-glucose sensor ([employer] G7 #3 ea 02/09/25 10/15/25 Rx Sensor device) clonidine HCl 0.1 mg tablet 0.15 mg (1.5 x 0.1 mg) PO HS #135 02/15/25 10/18/25 Rx tabs topiramate 100 mg tablet 100 mg PO HS #90 tabs 04/06/25 10/18/25 Rx omeprazole 40 mg capsule,delayed 40 mg PO BID #180 caps 04/22/25 10/18/25 Rx release trazodone 100 mg tablet 150 mg (1.5 x 100 mg) PO HS #45 05/20/25 10/18/25 Rx tabs colestipol 1 gram tablet 1 g PO BID PRN Stomach irritation 06/30/25 10/15/25 Rx #60 tabs pregabalin 150 mg capsule 150 mg PO BID #60 caps 07/14/25 10/18/25 Rx clarithromycin 500 mg tablet 500 mg PO BID #14 tabs 08/06/25 10/18/25 Rx fluticasone propionate 50 1 spray intranasal BID #16 grams 08/06/25 10/18/25 Rx mcg/actuation nasal spray,suspension nebulizer and tubing #1 ea 08/06/25 10/15/25 Rx prednisone 20 mg tablet See Rx Instructions PO DAILY #30 08/06/25 10/15/25 Rx tabs tramadol 50 mg tablet 50 mg PO DIRECTED PRN pain #90 09/06/25 10/15/25 Rx tabs semaglutide 1 mg/dose (4 mg/3 mL) 0.5 mg (0.375 mL) subcut WK #3 mL 09/20/25 10/15/25 Rx subcutaneous pen injector albuterol sulfate 2.5 mg/3 mL 2.5 mg (3 mL) inhalation QID PRN 10/15/25 10/15/25 Rx (0.083 %) solution for nebulization shortness of breath or wheezing #90 mL codeine 10 mg-guaifenesin 100 mg/5 5 ml PO Q6H PRN cough #118 mL 10/15/25 10/15/25 Rx mL oral liquid doxycycline monohydrate 100 mg 100 mg PO BID #14 caps 10/15/25 10/18/25 Rx capsule Past Med/Surg History Problem List (Updated 10/19/25 @ 03:20 by Tony Rodriguez MD) Abdominal pain with vomiting Small bowel intussusception Cough Chronic anticoagulation Hepatic vein thrombosis (Chronic) on eliquis, extends to inferior vena cava, per hem/onc remain on anticoag life time Irritable bowel syndrome with diarrhea Benign essential hypertension (Chronic) Cervical disc disease (Chronic) Chronic reflux esophagitis (Chronic) Depression (Chronic) Disc degeneration, lumbar (Chronic) Generalized anxiety disorder (Chronic) Pernicious anemia (Chronic) Vitamin B12 deficiency (Chronic) Vitamin D deficiency (Chronic) Allergic rhinitis Iron deficiency anemia Hypokalemia Intractable neuropathic pain of lumbosacral origin (Acute) Right lumbar radiculitis (Acute) Lumbar disc herniation with radiculopathy Morbid obesity Tinea corporis History of lumbar fusion 10/24/21 L5-S1 decompression and fusion Dr richards Migraine Fibromyalgia GERD (gastroesophageal reflux disease) Diabetes mellitus (Chronic) Hypothyroidism Neurodermatitis (Chronic) Lumbar spinal stenosis (Chronic) Insomnia (Chronic) Medical History Hepatic abscess LGSIL on Pap smear of cervix Anxiety and depression History of COVID-19 History of blood clots Chronic diarrhea Asthma Arthritis Tinea corporis Migraine, unspecified, not intractable, without status migrainosus PCO (polycystic ovaries) Iron deficiency Surgical History Previous back surgery Family history of reaction to anesthesia History of anesthesia reaction History of esophagogastroduodenoscopy (EGD) History of tooth extraction Fusion of spine History of surgery of liver History of repair of rotator cuff History of gastric surgery History of colonoscopy S/P endometrial ablation History of cholecystectomy H/O gastric bypass Family History Other Anemia Premature labor Twin Denies family history of Cervical cancer Ovarian cancer Myocardial infarction Breast cancer Colorectal cancer Uterine cancer Social History Smoking Status: Never smoker Tobacco Type: Cigarettes Age Started Using Tobacco: 17; Age Quit Using Tobacco: 19; packs per day: 1; Second Hand Exposure: Yes ( SMOKES); Do You Dip or Chew Tobacco: No; Hx Alcohol Use: Yes Alcohol type: beer and wine Alcohol Intake Frequency: Monthly or Less Hx Substance Use: No Preferred Language: Hungarian Communication Ability: Effective Visual Impairment: Limited Hearing Ability: Normal It Corporate Recruiter Required: No Beliefs That Will Affect Care: None marital status: Current Living Situation: Spouse current occupational status: disabled How many Children do You have: 3 Other Information That Helps Us Care for You: No Feels Safe at Home: Yes Safety Concerns: Feels Safe At This Time Childhood Exposure to Second-Hand Smoke: Yes Diet: regular caffeine: Yes during the past year weight has: remained stable Dental Care, Regularly: No Physical Activity Frequency: 1-2 Times per Week Physical Activity Frequency Comment: walking/cleaning Seatbelt Use: always Sunscreen Use: Yes (sometimes) Do you think of yourself as: straight/heterosexual Sexual Activity: has been sexually active, but not for at least 12 months Gender Identity: Female Assistive Devices: Cane and Glasses Review of Systems Review of Systems: The patient denies chest pain, palpitations, shortness of breath, dyspnea on exertion, cough, lower extremity swelling, sore throat, chills, sweats, blood in urine or stool, lightheadedness, dizziness, headache, memory loss, loss of consciousness, rash, abnormal bruising or bleeding, imbalance, focal weakness, numbness or tingling in arms or legs, generalized arthralgias or myalgias, back or neck pain, or night sweats. The review of systems is otherwise negative other than for that already noted above, and at least 10 systems have been reviewed. Physical Exam Physical Exam: The patient is awake, alert and oriented 3, well developed and well nourished, normocephalic and atraumatic, lying in bed and in no acute distress. HEENT--PERRL, EOMI, mucous membranes and oropharynx mildly dry. Neck--supple. No JVD. No bruits. Thyroid normal, trachea midline, no adenopathy. Heart--normal S1 and S2. No murmurs, rubs or gallops. Lungs--clear bilaterally, no respiratory distress, no accessory muscle use. Abdomen--normal bowel sounds and soft. Nontender. Nondistended Extremities--No edema. Dermatologic--normal skin turgor, normal color, no abnormal lymph nodes, no rash. Neurologic--cranial nerves II through XII grossly intact. Rheumatologic--normal range of motion. Psychiatric--normal affect. Results & Data Results & Data Vital Signs (Past 12 Hours) Vital Signs Pulse Pulse Resp BP Pulse Ox O2 Del Method 10/18/25 20:00 75 116/67 97 Room Air 10/18/25 18:40 75 16 100 Room Air 10/18/25 18:30 75 16 125/90 100 Room Air 10/18/25 16:31 80 16 119/82 97 Room Air Laboratory Results Laboratory Results WBC 7.83 K/ul (4.8-10.8) 10/18/25 14:56 RBC 5.71 M/uL (4.20-5.40) H 10/18/25 14:56 Hgb 17.1 g/dL (12.0-16.0) H 10/18/25 14:56 Hct 50.3 % (37.0-47.0) H 10/18/25 14:56 MCV 88.1 fL (80.0-100.0) 10/18/25 14:56 MCH 29.9 pg (25.0-34.0) 10/18/25 14:56 MCHC 34.0 g/dL (32.0-36.0) 10/18/25 14:56 RDW Std Deviation 37.3 fL (36.4-46.3) 10/18/25 14:56 RDW Coeff of Ana Paula 11.8 % (11.5-14.5) 10/18/25 14:56 Plt Count 337 K/uL (130-400) 10/18/25 14:56 MPV 8.7 fL (9.4-12.4) L 10/18/25 14:56 Immature Gran % (Auto) 0.6 % 10/18/25 14:56 Neut % (Auto) 82.6 % 10/18/25 14:56 Lymph % (Auto) 11.9 % 10/18/25 14:56 Pierce % (Auto) 4.3 % 10/18/25 14:56 Eos % (Auto) 0.0 % 10/18/25 14:56 Baso % (Auto) 0.6 % 10/18/25 14:56 Neut # (Auto) 6.46 K/uL (1.40-6.50) 10/18/25 14:56 Lymph # (Auto) 0.93 K/uL (1.20-3.40) L 10/18/25 14:56 Pierce # (Auto) 0.34 K/uL (0.11-0.59) 10/18/25 14:56 Eos # (Auto) 0.00 K/uL (0.00-0.50) 10/18/25 14:56 Baso # (Auto) 0.05 K/uL (0.00-0.20) 10/18/25 14:56 Immature Gran # (Auto) 0.05 K/uL (0.01-0.20) 10/18/25 14:56 Sodium 145 mmol/L (136-145) 10/18/25 14:56 Potassium 4.1 mmol/L (3.5-5.1) 10/18/25 14:56 Chloride 109 mmol/L (98-107) H 10/18/25 14:56 Carbon Dioxide 24 mmol/L (21-32) 10/18/25 14:56 Anion Gap 12 (3-11) H 10/18/25 14:56 BUN 21 mg/dl (6-23) 10/18/25 14:56 Creatinine 0.85 mg/dl (0.6-1.2) 10/18/25 14:56 Est Cr Clr Drug Dosing Not Reportable 10/18/25 14:56 eGFR 81.36 10/18/25 14:56 BUN/Creatinine Ratio 24.7 (10-20) H 10/18/25 14:56 Glucose 112 mg/dl (70-99(Fasting)) H 10/18/25 14:56 POC Glucose 107 mg/dl (70-99) H 10/18/25 22:05 Calcium 10.5 mg/dl (8.6-10.3) H 10/18/25 14:56 Total Bilirubin 1.1 mg/dl (0.2-1.0) H 10/18/25 14:56 AST 17 U/L (13-39) 10/18/25 14:56 ALT 16 U/L (7-52) 10/18/25 14:56 Alkaline Phosphatase 96 U/L (34-104) 10/18/25 14:56 Total Protein 8.5 gm/dl (6.0-8.3) H 10/18/25 14:56 Albumin 5.1 gm/dl (3.4-5.0) H 10/18/25 14:56 Globulin 3.4 gm/dl (2.5-4.0) 10/18/25 14:56 Albumin/Globulin Ratio 1.5 (0.9-2) 10/18/25 14:56 Lipase 20 U/L (11-82) 10/18/25 14:56 HCG, Qual Negative (Negative) 10/18/25 20:05 Urine Color Dark Yellow 10/18/25 23:51 Urine Appearance Clear (Clear) 10/18/25 23:51 Urine pH 5.5 (4.5-7.5) 10/18/25 23:51 Ur Specific [place] > 1.045 (1.000-1.030) H 10/18/25 23:51 Urine Protein 1+ (Negative) H 10/18/25 23:51 Urine Glucose (UA) Negative (Negative) 10/18/25 23:51 Urine Ketones 3+ (Negative) H 10/18/25 23:51 Urine Blood Trace (Negative) H 10/18/25 23:51 Urine Nitrite Negative (Negative) 10/18/25 23:51 Urine Bilirubin 1+ (Negative) H 10/18/25 23:51 Urine Urobilinogen Negative (Negative) 10/18/25 23:51 Ur Leukocyte Esterase Trace (Negative) H 10/18/25 23:51 Urine WBC (Auto) >50 /hpf (0-5) H 10/18/25 23:51 Urine RBC (Auto) 3-5 /hpf (0-2) H 10/18/25 23:51 U Hyaline Cast (Auto) 0-2 /lpf (0-2) 10/18/25 23:51 U Epithel Cells (Auto) 0-2 /hpf (0-2) 10/18/25 23:51 Urine Bacteria (Auto) None Seen (None Seen) 10/18/25 23:51 Hyaline Casts Present /lpf (None Presnt) A 10/18/25 14:50 Urine Mucus Present (None Prsent) A 10/18/25 14:50 Urine Comment 10/18/25 23:51 Impressions Abdomen/Pelvis CT 10/18/25 15:55 Clinical History: Left lower quadrant pain Technique: Axial computed tomography images were obtained of the abdomen and pelvis after the administration of intravenous contrast. Comparison is made to the prior CT dated 02/01/2025. Findings: The liver is overall of normal size, attenuation, and contour with no sign of cirrhosis or significant fatty infiltration. No liver mass lesion is seen. The portal vein is patent. The gallbladder has been removed. No bile duct dilatation is noted. The spleen is of normal size. No focal splenic lesion is evident. The pancreas appears normal with no sign of acute or chronic pancreatitis and no mass lesion noted. The pancreatic duct is of normal caliber. The adrenal glands appear unremarkable. No definite renal or proximal ureteral calculi are seen on this contrast-enhanced study. There is no hydronephrosis or perinephric stranding. No renal mass lesion is identified. The aorta is of normal caliber. No abdominal adenopathy is seen. Postsurgical changes are seen of gastric bypass surgery. There is a short segment intussusception involving small bowel in the left midabdomen. There is no sign of small bowel obstruction. The colon appears unremarkable. There is no sign of appendicitis. No free intraperitoneal fluid or air is identified. No distal ureteral or bladder calculi are seen. The bladder is decompressed. The iliac arteries are of normal caliber. No pelvic adenopathy is noted. There is mild right lung base atelectasis. There is an L5-S1 fusion. No fracture is identified. No focal osseous lesion is seen Impression: 1. Right lung base atelectasis 2. Small bowel intussusception in the left midabdomen. Intussusception can sometimes be seen as a transient finding. There is no sign of associated obstruction Electronically signed by [employer] 10-18-2025 6:15 PM Code Status & VTE Plan Code Status Full code VTE Prophylaxis Plan VTE Prophylaxis will be ordered: Yes PG Care Time/CCT Total # of Minutes Spent Total Time Spent with Patient: Total time spent is greater than 50% in coordination of care (as documented) at patient's floor/unit and/or counseling patient: Coding Level of Care Code 76273 INT INP/OBS CARE 3/75MIN Diagnoses Small bowel intussusception K56.1 Abdominal pain with vomiting R10.9; R11.10 Hepatic vein thrombosis I82.0 Chronic anticoagulation Z79.01
[2025-10-18] MEDS ORDERED: GLUCOSE 40% GEL 15 GM TUBE PO PRN (21:10)
[2025-10-18] MEDS ORDERED: DEXTROSE 50% 50 ML SYRINGE IV PRN (21:10)
[2025-10-18] MEDS ORDERED: GLUCAGON FOR INJ 1 MG VIAL SQ PRN (21:10)
[2025-10-18] MEDS ORDERED: GLUCOSE 10 TAB/TUBE PO PRN (21:10)
[2025-10-18] MEDS ORDERED: ALBUTEROL HFA 8 GM INHALER INH PRN (21:10)
[2025-10-18] MEDS ORDERED: CARBOHYDRATES FOR HYPOGLYCEMIA PO PRN (21:10)
[2025-10-18] MEDS: ACETAMINOPHEN 325 MG TAB PO PRN (21:47)
[2025-10-18] MEDS: LACTATED RINGER'S 1,000 ML IV SCH (22:07)
[2025-10-18] MEDS: PROCHLORPERAZINE 10 MG in SYRINGE 8 ML IV ONE (22:07)
[2025-10-18] MEDS: TOPIRAMATE 100 MG TAB PO SCH (22:11)
[2025-10-18] MEDS: PREGABALIN 150 MG CAP PO SCH (23:37)
[2025-10-18] MEDS: Patient's HEIGHT &/or WEIGHT Needed STA (23:38)
[2025-10-18] MEDS: INSULIN ASPART PER UNIT CHARGE SC SCH (23:38)
[2025-10-19 00:19] LABS: Appearance Urine Clear (Clear); Bacteria Urine Automated None Seen (None Seen); Cast Urine Automated 0-2 /lpf (0-2); Epithelial Cell Urine Auto 0-2 /hpf (0-2); Glucose Urine UA Negative (Negative); WBC Urine Automated >50 /hpf (0-5)
[2025-10-19] MEDS: FLUTICASONE PROPIONATE NA SPR 16 GM BTL NAE SCH (00:20)
[2025-10-19] MEDS ORDERED: Nursing to Pharmacy Communication SCH (00:45)
[2025-10-19] MEDS: PROCHLORPERAZINE 10 MG in SYRINGE 8 ML IV PRN (03:48)
[2025-10-19] MEDS: INSULIN ASPART PER UNIT CHARGE SC SCH (05:57)
[2025-10-19 07:41] VITALS: BP 110/68; PULSE 63; RESP 17; TEMP 98.1; O2SAT 94
[2025-10-19 09:54] LABS: Hemoglobin A1C 4.8 % (4.5-5.6)
[2025-10-19 10:11] LABS: Hematocrit (blood only) 38.9 % (37.0-47.0); Hemoglobin 12.8 g/dL (12.0-16.0); Immature Granulocytes # (auto) 0.01 K/uL (0.01-0.20); Immature Granulocytes % (auto) 0.3 %; Mean Corpuscular Hemoglobin 29.8 pg (25.0-34.0); Mean Corpuscular Volume 90.5 fL (80.0-100.0); Platelet Count 188 K/uL (130-400); RDW Standard Deviation 38.9 fL (36.4-46.3); Red Blood Count 4.30 M/uL (4.20-5.40); White Blood Count 3.79 K/ul (4.8-10.8)
[2025-10-19 10:18] LABS: Alanine Aminotransferase 9.0 U/L (7-52); Albumin Globulin Ratio 1.8 (0.9-2); Albumin Level 3.7 gm/dl (3.4-5.0); Alkaline Phosphatase 66.0 U/L (34-104); Anion Gap 8.0 (3-11); Bilirubin,Total 0.9 mg/dl (0.2-1.0); Blood Urea Nitrogen 20.0 mg/dl (6-23); Calcium 8.5 mg/dl (8.6-10.3); Carbon Dioxide 23.0 mmol/L (21-32); Chloride 114.0 mmol/L (98-107); Creatinine Clr Calc Pharmacy 95.4 ml/min; Globulin 2.1 gm/dl (2.5-4.0); Glucose 97.0 mg/dl (70-99(Fasting)); Magnesium 2.2 mg/dl (1.7-2.4); Potassium 3.9 mmol/L (3.5-5.1); Sodium 145.0 mmol/L (136-145); Total Protein 5.8 gm/dl (6.0-8.3)
--- NOTE | 2025-10-19 10:45 | Gastrointestinal Consultation ---
Date of Consultation October 19, 2025 Assessment & Plan (1) Small bowel intussusception: -Stool PCR -Supportive care for n/v -If persistent symptoms, can consider CT enterography as an outpatient Supervising Physician Co-Signing Physician Notes I saw and examined this patient with our nurse practitioner and agree with her assessment and plan. Presentation consistent with gastroenteritis stool PCR is pending. Clinically improved. Suspect intussusception seen on CT is an incidental transient finding. No signs of small bowel obstruction. Recurrent symptoms consider CT enterography to further evaluate small bowel. 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 She had a CT scan in the ED that showed a small bowel intussusception. No other symptoms at present. N/V has improved. Diarrhea persists. Allergies Allergy/AdvReac Type Severity Reaction Status Date / Time Penicillins Allergy Severe HIVES/SEIZU Verified 10/15/25 13:26 RES Sulfa (Sulfonamide Allergy Severe HIVES/SEIZU Verified 10/15/25 13:26 Antibiotics) RES latex Allergy Mild rash Verified 10/15/25 13:26 metformin AdvReac Severe GI upset Verified 10/15/25 13:26 even with ER Home Medications Medication Instructions Recorded Confirmed Type cyanocobalamin (vitamin B-12) 1,000 mcg IM MONTHLY 05/14/19 10/15/25 History 1,000 mcg/mL injection kit triamcinolone acetonide 0.1 % 1 applic topical BID PRN Skin 02/08/21 10/15/25 History topical cream Irritation diclofenac sodium 1 % topical gel 2 g topical QID 01/05/24 10/15/25 History (Arthritis Pain (diclofenac)) hydrocortisone 2.5 % topical cream 1 applic ME BID PRN hemorrhoids 01/05/24 10/15/25 History with perineal applicator (Anusol-HC) menthol 0.44 %-zinc oxide 20.6 % 1 appln topical QID PRN skin 01/05/24 10/15/25 History topical ointment (Calmoseptine) irritation acetaminophen 325 mg tablet 650 mg PO Q4 PRN Fever Or Pain 01/27/24 10/15/25 History cholecalciferol (vitamin D3) 125 5,000 unit PO DAILY 01/27/24 10/18/25 History mcg (5,000 unit) capsule lactobacillus combination no.4 3 3,000 mmu cells PO QAM 01/27/24 10/18/25 History billion cell capsule (Probiotic) pediatric multivitamin no.76 1 tab PO DAILY 01/27/24 10/18/25 History (Flintstones Complete chewable tablet) blood sugar diagnostic (Accu-Chek #100 ea 02/14/24 10/15/25 Rx Guide test strips) lancets (Accu-Chek Softclix #200 ea 02/14/24 10/15/25 Rx Lancets) prochlorperazine maleate 10 mg 10 mg PO Q8H PRN nausea and 07/20/24 10/15/25 History tablet (Compazine) vomiting albuterol sulfate 90 mcg/actuation 2 puff inhalation Q6H PRN 09/21/24 10/15/25 Rx aerosol inhaler Shortness Of Breath Or Wheezing #6.7 grams silver sulfadiazine 1 % topical 1 applic topical BID PRN wound 09/21/24 10/15/25 Rx cream (Silvadene) healing #50 grams apixaban 5 mg tablet (Eliquis) 5 mg PO BID #60 tabs 01/08/25 10/18/25 Rx estradiol 0.01% (0.1 mg/gram) 1 g vaginal 2XWK PRN Irritation 02/01/25 10/15/25 History vaginal cream nystatin 100,000 unit/gram topical 1 applic topical BID PRN Flare 02/01/25 10/15/25 History powder nystatin-triamcinolone 100,000 1 applic topical BID PRN Flare 02/01/25 10/15/25 History unit/g-0.1 % topical cream blood-glucose sensor (Dexcom G7 #3 ea 02/09/25 10/15/25 Rx Sensor device) clonidine HCl 0.1 mg tablet 0.15 mg (1.5 x 0.1 mg) PO HS #135 02/15/25 10/18/25 Rx tabs topiramate 100 mg tablet 100 mg PO HS #90 tabs 04/06/25 10/18/25 Rx omeprazole 40 mg capsule,delayed 40 mg PO BID #180 caps 04/22/25 10/18/25 Rx release trazodone 100 mg tablet 150 mg (1.5 x 100 mg) PO HS #45 05/20/25 10/18/25 Rx tabs colestipol 1 gram tablet 1 g PO BID PRN Stomach irritation 06/30/25 10/15/25 Rx #60 tabs pregabalin 150 mg capsule 150 mg PO BID #60 caps 07/14/25 10/18/25 Rx clarithromycin 500 mg tablet 500 mg PO BID #14 tabs 08/06/25 10/18/25 Rx fluticasone propionate 50 1 spray intranasal BID #16 grams 08/06/25 10/18/25 Rx mcg/actuation nasal spray,suspension nebulizer and tubing #1 ea 08/06/25 10/15/25 Rx prednisone 20 mg tablet See Rx Instructions PO DAILY #30 08/06/25 10/15/25 Rx tabs tramadol 50 mg tablet 50 mg PO DIRECTED PRN pain #90 09/06/25 10/15/25 Rx tabs semaglutide 1 mg/dose (4 mg/3 mL) 0.5 mg (0.375 mL) subcut WK #3 mL 09/20/25 10/15/25 Rx subcutaneous pen injector albuterol sulfate 2.5 mg/3 mL 2.5 mg (3 mL) inhalation QID PRN 10/15/25 10/15/25 Rx (0.083 %) solution for nebulization shortness of breath or wheezing #90 mL codeine 10 mg-guaifenesin 100 mg/5 5 ml PO Q6H PRN cough #118 mL 10/15/25 10/15/25 Rx mL oral liquid doxycycline monohydrate 100 mg 100 mg PO BID #14 caps 10/15/25 10/18/25 Rx capsule Patient History Medical History Hepatic abscess LGSIL on Pap smear of cervix Anxiety and depression History of COVID-19 History of blood clots Chronic diarrhea Asthma Arthritis Tinea corporis Migraine, unspecified, not intractable, without status migrainosus PCO (polycystic ovaries) Iron deficiency Surgical History Previous back surgery Family history of reaction to anesthesia History of anesthesia reaction History of esophagogastroduodenoscopy (EGD) History of tooth extraction Fusion of spine History of surgery of liver History of repair of rotator cuff History of gastric surgery History of colonoscopy S/P endometrial ablation History of cholecystectomy H/O gastric bypass Family History Other Anemia Premature labor Twin Denies family history of Cervical cancer Ovarian cancer Myocardial infarction Breast cancer Colorectal cancer Uterine cancer Social History Smoking Status: Never smoker Tobacco Type: Cigarettes Age Started Using Tobacco: 17; Age Quit Using Tobacco: 19; packs per day: 1; Second Hand Exposure: Yes ( SMOKES); Do You Dip or Chew Tobacco: No; Hx Alcohol Use: Yes Alcohol type: beer and wine Alcohol Intake Frequency: Monthly or Less Hx Substance Use: No Preferred Language: Slovak Communication Ability: Effective Visual Impairment: Limited Hearing Ability: Normal Wafer Substrate Tester Required: No Beliefs That Will Affect Care: None marital status: Current Living Situation: Spouse current occupational status: disabled How many Children do You have: 3 Feels Safe at Home: Yes Childhood Exposure to Second-Hand Smoke: Yes Diet: regular caffeine: Yes during the past year weight has: remained stable Dental Care, Regularly: No Physical Activity Frequency: 1-2 Times per Week Physical Activity Frequency Comment: walking/cleaning Seatbelt Use: always Sunscreen Use: Yes (sometimes) Do you think of yourself as: straight/heterosexual Sexual Activity: has been sexually active, but not for at least 12 months Gender Identity: Female Assistive Devices: Walker Review of Systems Gastrointestinal: + abdominal pain and + nausea; no vomiti ng (resolved now) Physical Exam Constitutional: well developed Respiratory: normal respiratory effort Gastrointestinal (Abdomen): normal bowel sounds, soft, nontender, no hepatosplenomegaly Results & Data Vital Signs (Past 12 Hours) Vital Signs Temp Pulse Resp BP Pulse Ox O2 Del Method 10/19/25 07:39 36.7 C 63 17 110/68 94 Room Air 10/18/25 23:47 36.6 C 68 16 111/70 97 Room Air 10/18/25 23:20 Room Air 10/18/25 23:15 Room Air 10/18/25 23:01 36.6 C 68 16 111/70 97 Room Air Laboratory Results Laboratory Results - last 48 hr 10/18/25 10/18/25 10/18/25 14:50 14:56 20:05 WBC 7.83 RBC 5.71 H Hgb 17.1 H Hct 50.3 H MCV 88.1 MCH 29.9 MCHC 34.0 RDW Std Deviation 37.3 RDW Coeff of Ana Paula 11.8 Plt Count 337 MPV 8.7 L Immature Gran % (Auto) 0.6 Neut % (Auto) 82.6 Lymph % (Auto) 11.9 Tompkins % (Auto) 4.3 Eos % (Auto) 0.0 Baso % (Auto) 0.6 Neut # (Auto) 6.46 Lymph # (Auto) 0.93 L Tompkins # (Auto) 0.34 Eos # (Auto) 0.00 Baso # (Auto) 0.05 Immature Gran # (Auto) 0.05 Sodium 145 Potassium 4.1 Chloride 109 H Carbon Dioxide 24 Anion Gap 12 H BUN 21 Creatinine 0.85 Est Cr Clr Drug Dosing Not Reportable eGFR 81.36 BUN/Creatinine Ratio 24.7 H Glucose 112 H POC Glucose Estimat Average Glucose Hemoglobin A1c Calcium 10.5 H Magnesium Total Bilirubin 1.1 H AST 17 ALT 16 Alkaline Phosphatase 96 Total Protein 8.5 H Albumin 5.1 H Globulin 3.4 Albumin/Globulin Ratio 1.5 Lipase 20 HCG, Qual Negative Urine Color Dark Yellow Urine Appearance Clear Urine pH 5.5 Ur Specific [place] 1.027 Urine Protein 1+ H Urine Glucose (UA) Negative Urine Ketones 2+ H Urine Blood Negative Urine Nitrite Negative Urine Bilirubin 2+ H Urine Urobilinogen Negative Ur Leukocyte Esterase 1+ H Urine WBC (Auto) 0-5 Urine RBC (Auto) 0-2 U Hyaline Cast (Auto) 6-10 H U Epithel Cells (Auto) 0-2 Urine Bacteria (Auto) None Seen Hyaline Casts Present A Urine Mucus Present A Urine Comment 10/18/25 10/18/25 10/19/25 22:05 23:51 05:46 WBC RBC Hgb Hct MCV MCH MCHC RDW Std Deviation RDW Coeff of Ana Paula Plt Count MPV Immature Gran % (Auto) Neut % (Auto) Lymph % (Auto) Tompkins % (Auto) Eos % (Auto) Baso % (Auto) Neut # (Auto) Lymph # (Auto) Tompkins # (Auto) Eos # (Auto) Baso # (Auto) Immature Gran # (Auto) Sodium Potassium Chloride Carbon Dioxide Anion Gap BUN Creatinine Est Cr Clr Drug Dosing eGFR BUN/Creatinine Ratio Glucose POC Glucose 107 H 102 H Estimat Average Glucose Hemoglobin A1c Calcium Magnesium Total Bilirubin AST ALT Alkaline Phosphatase Total Protein Albumin Globulin Albumin/Globulin Ratio Lipase HCG, Qual Urine Color Dark Yellow Urine Appearance Clear Urine pH 5.5 Ur Specific [place] > 1.045 H Urine Protein 1+ H Urine Glucose (UA) Negative Urine Ketones 3+ H Urine Blood Trace H Urine Nitrite Negative Urine Bilirubin 1+ H Urine Urobilinogen Negative Ur Leukocyte Esterase Trace H Urine WBC (Auto) >50 H Urine RBC (Auto) 3-5 H U Hyaline Cast (Auto) 0-2 U Epithel Cells (Auto) 0-2 Urine Bacteria (Auto) None Seen Hyaline Casts Urine Mucus Urine Comment 10/19/25 10/19/25 10/19/25 09:00 12:11 16:17 WBC 3.79 L RBC 4.30 Hgb 12.8 D Hct 38.9 MCV 90.5 MCH 29.8 MCHC 32.9 RDW Std Deviation 38.9 RDW Coeff of Ana Paula 11.9 Plt Count 188 MPV 8.9 L Immature Gran % (Auto) 0.3 Neut % (Auto) 60.1 Lymph % (Auto) 30.1 Tompkins % (Auto) 7.9 Eos % (Auto) 0.5 Baso % (Auto) 1.1 Neut # (Auto) 2.28 Lymph # (Auto) 1.14 L Tompkins # (Auto) 0.30 Eos # (Auto) 0.02 Baso # (Auto) 0.04 Immature Gran # (Auto) 0.01 Sodium 145 Potassium 3.9 Chloride 114 H Carbon Dioxide 23 Anion Gap 8 BUN 20 Creatinine 0.62 Est Cr Clr Drug Dosing 95.4 eGFR 105.76 BUN/Creatinine Ratio 32.3 H Glucose 97 POC Glucose 89 128 H Estimat Average Glucose 91 Hemoglobin A1c 4.8 Calcium 8.5 L D Magnesium 2.2 Total Bilirubin 0.9 AST 13 ALT 9 Alkaline Phosphatase 66 Total Protein 5.8 L D Albumin 3.7 Globulin 2.1 L Albumin/Globulin Ratio 1.8 Lipase HCG, Qual Urine Color Urine Appearance Urine pH Ur Specific [place] Urine Protein Urine Glucose (UA) Urine Ketones Urine Blood Urine Nitrite Urine Bilirubin Urine Urobilinogen Ur Leukocyte Esterase Urine WBC (Auto) Urine RBC (Auto) U Hyaline Cast (Auto) U Epithel Cells (Auto) Urine Bacteria (Auto) Hyaline Casts Urine Mucus Urine Comment PG Care Time/CCT Total # of Minutes Spent Total Time Spent with Patient: Total time spent is greater than 50% in coordination of care (as documented) at patient's floor/unit and/or counseling patient: Coding Level of Care Code 05736 IN/OBS CONSULT LVL 4,60M Diagnoses Small bowel intussusception K56.1
--- NOTE | 2025-10-19 11:08 | Hospitalist Progress Note ---
Date of Service October 19, 2025 Assessment & Plan Plan The patient is a 55-year-old female with past medical history including recurrent urinary tract infections, hepatic vein thrombosis, chronic anticoagulation, IBS with diarrhea, hypertension, chronic reflux esophagitis, depression, generalized anxiety disorder, pernicious anemia, vitamin D deficiency, migraine, fibromyalgia, GERD, diabetes mellitus, lumbar spinal stenosis with radiculopathy, and hypothyroidism. She presents to the emergency department with complaints of abdominal pain, nausea and vomiting, fevers, and urinary frequency symptoms that began 2 days ago, and have persisted. Workup in the emergency department included CT scan of abdomen pelvis which suggested small bowel intussusception, and changes consistent with her known history of gastric bypass. From the ED she received the following: Normal saline 1 L fluid bolus, Zofran 4 mg IV. ED spoke with general surgery, who recommended GI evaluation. GI phone consult suggest patient be admitted to medical service, and being kept n.p.o., and treated conservatively. #Small bowel intussusception/abdominal pain with vomiting/history of gastric bypass- - As noted on CT scan - Advanced diet to full liquids. - Status post 1 L normal saline bolus from the ED - LR at 80 mL/h - Compazine 10 mg IV every 6 hours as needed. - GI recommended stool PCR, and supportive care for n/v. If symptoms are persistent then consider CT enterography as outpatient #Hepatic vein thrombosis- - Restarted the apixaban due to GI not doing any procedure #Diabetes mellitus/weight management- - Hold semaglutide - Placed on Accu-Cheks with NovoLog SSI #Asthma- - Continue albuterol HFA 2 puffs every 6 hours as needed #Hypertension- - Continue clonidine #Generalized anxiety disorder- - Continue clonidine, pregabalin, topiramate, and trazodone. Admission and Anticipated Discharge Date Admission Date: October 18, 2025 Subjective Patient is stable and comfortable at bedside this morning. Reports that she has had loose stools last night and this morning though its baseline for her. She denied any blood in her stool. States her abdominal pain is better than yesterday but still there. Denies fever/chills/sweats, chest pain, and shortness of breath. Review of Systems Review of Systems: as per HPI Physical Exam Constitutional: WD/WN, vitals as above Eyes: + anicteric sclerae and EOM intact bilat erally Respiratory: normal respiratory effort, lungs clear to auscultation Cardiovascular: Rate/Rhythm: regular rate and regular rhythm Heart Sounds: normal S1 and normal S2; no murmur Gastrointestinal (Abdomen): Inspection/Auscultation: + hyperactive bowel sounds Percussion/Palpation: + abdomen tender (LUQ, RLQ, and LLQ) Skin: no rashes, warm and dry Psychiatric: Eye Contact: good eye contact Speech: normal rate /rhythm/volume of speech Thought Process: goal directed thought process and linear/logical thought process Results & Data Results & Data Vital Signs (Past 12 Hours) Vital Signs Temp Pulse Pulse Resp BP BP Pulse Ox 10/19/25 07:39 36.7 C 63 17 110/68 94 10/18/25 23:47 36.6 C 68 16 111/70 97 10/18/25 23:20 10/18/25 23:15 10/18/25 23:01 36.6 C 68 16 111/70 97 10/18/25 22:21 73 16 147/71 H 96 O2 Del Method 10/19/25 07:39 Room Air 10/18/25 23:47 Room Air 10/18/25 23:20 Room Air 10/18/25 23:15 Room Air 10/18/25 23:01 Room Air 10/18/25 22:21 Room Air
[2025-10-19] MEDS: COLESTIPOL HCL 1 GM TAB PO SCH (13:01)
--- NOTE | 2025-10-19 15:16 | Discharge Summary ---
Date of Service October 19, 2025 Admission HPI Per Admitting Provider The patient is a 55-year-old female with past medical history including recurrent urinary tract infections, hepatic vein thrombosis, chronic anticoagulation, IBS with diarrhea, hypertension, chronic reflux esophagitis, depression, generalized anxiety disorder, pernicious anemia, vitamin D deficiency, migraine, fibromyalgia, GERD, diabetes mellitus, lumbar spinal stenosis with radiculopathy, and hypothyroidism. She presents to the emergency department with complaints of abdominal pain, nausea and vomiting, fevers, and urinary frequency symptoms that began 2 days ago, and have persisted. Workup in the emergency department included CT scan of abdomen pelvis which suggested small bowel intussusception, and changes consistent with her known history of gastric bypass. From the ED she received the following: Normal saline 1 L fluid bolus, Zofran 4 mg IV. ED spoke with general surgery, who recommended GI evaluation. GI phone consult suggest patient be admitted to medical service, and being kept n.p.o., and treated conservatively. Admission Exam Per Admitting Provider Physical Exam Physical Exam: The patient is awake, alert and oriented 3, well developed and well nourished, normocephalic and atraumatic, lying in bed and in no acute distress. HEENT--PERRL, EOMI, mucous membranes and oropharynx mildly dry. Neck--supple. No JVD. No bruits. Thyroid normal, trachea midline, no adenopathy. Heart--normal S1 and S2. No murmurs, rubs or gallops. Lungs--clear bilaterally, no respiratory distress, no accessory muscle use. Abdomen--normal bowel sounds and soft. Nontender. Nondistended Extremities--No edema. Dermatologic--normal skin turgor, normal color, no abnormal lymph nodes, no rash. Neurologic--cranial nerves II through XII grossly intact. Rheumatologic--normal range of motion. Psychiatric--normal affect. Principal Diagnosis small bowel intussusception and abdominal pain Discharge Exam Constitutional WD/WN, vitals as above Eyes + anicteric sclerae and EOM intact bilaterally Respiratory normal respiratory effort, lungs clear to auscultation Cardiovascular Rate/Rhythm: regular rate and regular rhythm Heart Sounds: normal S1 and normal S2; no murmur Gastrointestinal (Abdomen) Inspection/Auscultation: + hyperactive bowel sounds Percussion/Palpation: + abdomen tender (LUQ, RLQ, and LLQ) Skin no rashes, warm and dry Psychiatric Eye Contact: good eye contact Speech: normal rate/rhythm/volume of speech Thought Process: goal directed thought process and linear/logical thought process Discharge Data Allergies Allergy/AdvReac Type Severity Reaction Status Date / Time Penicillins Allergy Severe HIVES/SEIZU Verified 10/15/25 13:26 RES Sulfa (Sulfonamide Allergy Severe HIVES/SEIZU Verified 10/15/25 13:26 Antibiotics) RES latex Allergy Mild rash Verified 10/15/25 13:26 metformin AdvReac Severe GI upset Verified 10/15/25 13:26 even with ER Consultations 10/18/25 19:42 Consult Gastroenterology Routine ED Decision to Admit Stat Ordered Studies 10/18/25 15:55 CT abd pelvis IV con only Stat Hospital Course (1) Small bowel intussusception: (2) Hepatic vein thrombosis: (3) Depression: (4) Diabetes mellitus: (5) Asthma: (6) Abdominal pain with vomiting: (7) Generalized anxiety disorder: (8) H/O gastric bypass: Plan The patient is a 55-year-old female with past medical history including recurrent urinary tract infections, hepatic vein thrombosis, chronic anticoagulation, IBS with diarrhea, hypertension, chronic reflux esophagitis, depression, generalized anxiety disorder, pernicious anemia, vitamin D defici ency, migraine, fibromyalgia, GERD, diabetes mellitus, lumbar spinal stenosis with radiculopathy, and hypothyroidism. She presents to the emergency department with complaints of abdominal pain, nausea and vomiting, fevers, and urinary frequency symptoms that began 2 days ago, and have persisted. Workup in the emergency department included CT scan of abdomen pelvis which suggested small bowel intussusception, and changes consistent with her known history of gastric bypass. From the ED she received the following: Normal saline 1 L fluid bolus, Zofran 4 mg IV. ED spoke with general surgery, who recommended GI evaluation. GI phone consult suggest patient be admitted to medical service, and being kept n.p.o., and treated conservatively. #Small bowel intussusception/abdominal pain with vomiting/history of gastric bypass- - As noted on CT scan - Advanced diet to full liquids on 10/19 this morning. Patient tolerated diet well. - LR at 80 mL/h - Compazine 10 mg IV every 6 hours as needed. - GI ordered stool PCR (but was uncollected by time of discharge), and supportive care for n/v. If symptoms are persistent then consider CT enterography as outpatient - Urine Culture is still pending #Hepatic vein thrombosis- - Restarted the apixaban due to GI not doing any procedure #Diabetes mellitus/weight management- - Held semaglutide - Placed on Accu-Cheks with NovoLog SSI #Asthma- - Continue albuterol HFA 2 puffs every 6 hours as needed #Hypertension- - Continue clonidine #Generalized anxiety disorder- - Continue clonidine, pregabalin, topiramate, and trazodone. Total Time Total Time Spent Total Time Spent (In Minutes): per attending Discharge Plan Discharge Items Patient Disposition: Home - Self-Care Reason For Visit: SMALL BOWEL INTUSSUSCEPTION, ABDOMINAL PAIN Discharge Diagnosis: Small bowel intussusception, abdominal pain Activity: Per Instructions section Non-emergency contact: Primary Care Provider Call non-emergency contact if: your symptoms worsen, your pain is not controlled and your temperature is above 101.5 Follow-up/Referrals: Chanelle Gerard CRNP [Primary Care Provider] - 11/01/25 10:30 am Diet: Full liquid Addtl Attending Provider Instructions: You were admitted to the hospital for abdominal pain, nausea and vomiting, fevers, and urinary frequency. We provided imaging of your abdomen and it showed that you had a "intussusception" in your intestines. We consulted GI and they thought that a procedure was not needed for this time. We also put you on IV fluids and anti- nausea medication. For the urinary frequency we got a urine culture which is still being read. We started your diet on a "full liquid" diet with jello, and broth which you tolerated well. Please continue this type of diet and gradually increase your diet to solids as tolerated. Follow-up with your PCP within a week or two of discharging from the hospital to monitor your symptoms. CONTACT YOUR PRIMARY CARE PROVIDER if you experience any of the following: Worsening of symptoms Fever, chills, or fatigue Difficulty following your treatment plan, or difficulty taking medications CALL 911 OR GO TO THE EMERGENCY DEPARTMENT if you experience any of the following: Sudden, severe abdominal pain or nausea/vomiting Severe chest pain, or chest pain that radiates (moves) to your jaw or arm Sudden, severe shortness of breath or difficulty breathing Thank you for allowing us to participate in your care. Pending Studies at Discharge: Yes (Urine culture ) Stand-Alone Forms: My [facility], Smoking Cessation Medications and DC Order Prescriptions: Continued (DME) lancets [Accu-Chek Softclix Lancets] Misc See Rx Instructions .Route Qty: 200 3RF Rx Instructions: Use 3-4 times a day E11.9 (DME) Accu-Chek Guide test strips Strip See Rx Instructions .Route Qty: 100 4RF Rx Instructions: Test 3-4 times a day E11.9 (DME) Dexcom G7 Sensor Device See Rx Instructions .Route Qty: 3 5RF Rx Instructions: test 2-3 x a day clonidine HCl 0.1 mg tablet 0.15 mg PO HS Qty: 135 3RF Rx Instructions: 0.1 mg PO take 1 1/2 tabs at bedtime.; topiramate 100 mg tablet 100 mg PO HS Qty: 90 3RF omeprazole 40 mg capsule,delayed release(DR/EC) 40 mg PO BID Qty: 180 3RF trazodone 100 mg tablet 150 mg PO HS Qty: 45 11RF Hold Instructions: Patient not taking at this time colestipol 1 gram tablet 1 g PO BID PRN (Reason: Stomach irritation) Qty: 60 5RF pregabalin 150 mg capsule 150 mg PO BID Qty: 60 5RF Rx Instructions: pt aware to switch to BID dosing tramadol 50 mg tablet 50 mg PO DIRECTED PRN (Reason: pain) Qty: 90 0RF Rx Instructions: 50 mg orally BID- TID PRN; semaglutide 1 mg/dose (4 mg/3 mL) pen injector 0.5 mg subcut WK Qty: 3 4RF Rx Instructions: Saturday cyanocobalamin (vitamin B-12) 1,000 mcg/mL kit 1,000 mcg IM MONTHLY Patient Comments: 1,000 mcg IM once a month; Rx Instructions: 1,000 mcg IM once a month prochlorperazine maleate [Compazine] 10 mg tablet 10 mg PO Q8H PRN (Reason: nausea and vomiting) fluticasone propionate 50 mcg/actuation spray,suspension 1 spray intranasal BID Qty: 16 2RF Rx Instructions: administer into each nostril prior to flying clarithromycin 500 mg tablet 500 mg PO BID Qty: 14 0RF Rx Instructions: hold trazadone prednisone 20 mg tablet See Rx Instructions PO DAILY Qty: 30 0RF Rx Instructions: 3 tab for 5 days, 2 tab for 5 days, 1 tab for 5 days orally daily; (DME) nebulizer and tubing See Rx Instructions .Route .MEDSUPPLY Qty: 1 0RF Rx Instructions: As directed Eliquis 5 mg tablet 5 mg PO BID Qty: 60 11RF albuterol sulfate 90 mcg/actuation HFA aerosol inhaler 2 puff INHALATION Q6H PRN (Reason: Shortness Of Breath Or Wheezing) Qty: 6.7 2RF silver sulfadiazine [Silvadene] 1 % cream 1 applic TOP BID PRN (Reason: wound healing) Qty: 50 1RF doxycycline monohydrate 100 mg capsule 100 mg PO BID Qty: 14 0RF albuterol sulfate 2.5 mg /3 mL (0.083 %) solution for nebulization 2.5 mg inhalation QID PRN (Reason: shortness of breath or wheezing) Qty: 90 2RF codeine-guaifenesin 10-100 mg/5 mL liquid 5 ml PO Q6H PRN (Reason: cough) Qty: 118 0RF Rx Instructions: do not take with tramadol, Compazine, or pregabalin acetaminophen 325 mg tablet 650 mg PO Q4 PRN (Reason: Fever Or Pain) triamcinolone acetonide 0.1 % cream 1 applic topical BID PRN (Reason: Skin Irritation) Hold Instructions: Patient not taking at this time Probiotic 3 billion cell capsule 3,000 mmu cells PO QAM Flintstones Complete Tablet,Chewable 1 tab PO DAILY hydrocortisone [Anusol-HC] 2.5 % cream with perineal applicator 1 applic IN BID PRN (Reason: hemorrhoids) diclofenac sodium [Arthritis Pain (diclofenac)] 1 % gel 2 g topical QID menthol-zinc oxide [Calmoseptine] 0.44-20.6 % ointment 1 appln TOP QID PRN (Reason: skin irritation) cholecalciferol (vitamin D3) 125 mcg (5,000 unit) capsule 5,000 unit PO DAILY nystatin-triamcinolone 100,000-0.1 unit/g-% cream 1 applic topical BID PRN (Reason: Flare) nystatin 100,000 unit/gram powder 1 applic topical BID PRN (Reason: Flare) estradiol 0.01 % (0.1 mg/gram) cream 1 g vaginal 2XWK PRN (Reason: Irritation) Rx Instructions: 1 g vaginally 2x/week; Discharge Orders: Discharge Order (Routine); Ordered 10/19/25 Ordered By: Scout Frazier/Other Patient Handouts: How the Colon Works Admission Data Admit Date/Time: 10/18/25 20:51 Attending Provider: Wade Ricardo Admit Provider: Tony Rodriguez Primary Care Provider: Chanelle Gerard Other Providers: Tony Rodriguez; Sarkis Mohr I Other Interventions: Discharge Summary Assessment (RN) Last Done: 10/19/25 15:34 Supervising Physician Co-Signing Physician Notes Resident Physician Supervision Note: I personally examined the patient and verified all lopez points of history and exam, discussed case, and agree with decision making with Patient was doing well she was tolerating her diet. She had no abdominal discomfort. She did have bowel movement. She is stable for discharge. I discussed the case with the resident and agree with the findings and plan as documented in the note. Any exceptions or clarifications are listed here: Documented By: Wade Ricardo MD Resident Activity Tracking Resident Involvement: Resident Care Provided Care Provided: Adult Hospital Medicine
[2025-10-19] MEDS ORDERED: APIXABAN 5 MG TABLET PO SCH (21:00)
--- NOTE | 2025-10-20 07:40 | Billing Data ---
Date of Service October 20, 2025 Coding Level of Care Code 38574 IN/OBS DISCH 30 MIN/LESS
== END 2025-10-19 17:40 | disposition home or self-care (01) | DRG 388 ==
LOC: ED 14:31 → EDINP 20:51 → SUATTDRO 20:51 → INTOOBSV 20:51 → 3N 22:21